=== PATIENT | female | born 1995 | race Caucasian/White ===

== ENCOUNTER 2016-07-27 12:15 | Inpatient (IN) | payer MEDICAID ==
[2016-07-27] MEDS: DUONEB 0.5 MG/3 MG NEB SCH ×3 (14:56→20:45)
[2016-07-27 15:46] LABS: ABG BASE EXCESS 3.5 mmol/L (-2.0-2.0); ABG HCO3 26.5 mmol/L (22-26)
[2016-07-27 15:51] LABS: BASOPHILS # (AUTO) 0.1 X10^3/uL (0.0-0.1); BASOPHILS % (AUTO) 0.7 % (0.2-1.0); EOSINOPHILS # (AUTO) 0.1 x10^3/uL (0.0-0.2); EOSINOPHILS % (AUTO) 0.8 % (0.9-2.9); HEMATOCRIT 40.8 % (36.0-47.0); HEMOGLOBIN 13.6 g/dL (12.0-16.0); LYMPHOCYTES # (AUTO) 2.9 X10^3/uL (1.3-2.9); MEAN CORPUSCULAR HEMOGLOBIN 28.5 pg (27.0-34.0); MEAN CORPUSCULAR HGB CONC 33.3 g/dL (33.0-35.0); MEAN CORPUSCULAR VOLUME 85.7 fL (80.0-100.0); MEAN PLATELET VOLUME 8.6 fL (7.4-11.0); MONOCYTES # (AUTO) 1.5 x10^3/uL (0.3-0.8); NEUTROPHILS # (AUTO) 10.8 x10^3/uL (2.2-4.8); NEUTROPHILS % (AUTO) 69.5 % (42.0-75.0); PLATELET COUNT 287 X10^3/uL (150.0-450.0); RED BLOOD COUNT 4.77 X10^6/uL (3.5-5.4); RED CELL DISTRIBUTION WIDTH 12.8 % (11.6-16.5); WHITE BLOOD COUNT 15.5 X10^3/uL (3.6-10.0)
[2016-07-27 16:00] LABS: BLOOD UREA NITROGEN 7 mg/dL (7-18); CALCIUM 8.2 mg/dL (8.5-10.1); CARBON DIOXIDE 24.8 mmol/L (21-32); CHLORIDE 107 mmol/L (98-107); CREATININE 0.64 mg/dL (0.55-1.02); GLUCOSE 75 mg/dL (65-99); SODIUM 142 mmol/L (136-145); eGFR BLACK RACES > 60 (>60); eGFR NON BLACK RACES > 60 (>60)
[2016-07-27 16:01] VITALS: BMI 17.7
[2016-07-27] MEDS: LEVAQUIN PREMIX IV 500 MG 500 MG/100 ML BAG IV SCH (16:03)
[2016-07-27] MEDS: NS 500 ML IV 500 ML IV SCH (16:03)
--- NOTE | 2016-07-27 16:28 | RAD ---
HISTORY: Cystic fibrosis Study: PA and lateral views of the chest. Comparison: None. Findings: The cardiomediastinal silhouette is normal. No focal consolidations, pleural effusions or pneumothor ax. There appears to be some early bronchiectasis involving the upper lobes bilaterally. IMPRESSION: 1. Bronchiectasis of the upper lobes consistent with patient's diagnosis of cystic fibrosis. Reported By:
[2016-07-27 20:20] LABS: BILIRUBIN,URINE NEGATIVE (NEGATIVE); BLOOD/HEMOGLOBIN,URINE 4+ (NEGATIVE); GLUCOSE, URINE NEGATIVE (NEGATIVE); KETONES,URINE NEGATIVE (NEGATIVE); LEUKOCYTE ESTERASE ,URINE 1+ (NEGATIVE); NITRITES,URINE POSITIVE (NEGATIVE); PROTEIN,URINE NEGATIVE (NEGATIVE); UROBILINOGEN,URINE 1+ (NORMAL)
[2016-07-27 20:33] LABS: COLOR,URINE YELLOW (YELLOW)
[2016-07-27 20:34] LABS: APPEARANCE,URINE CLOUDY (CLEAR); BACTERIA,URINE 3+ /HPF (NEGATIVE); RBC,URINE 0-3 /HPF (NEGATIVE); SQUAMOUS EPITHELIAL CELL,UR RARE /HPF (NEGATIVE)
[2016-07-27] MEDS ORDERED: [UNRECOGNIZED DRUG - OTHER] PO SCH (21:30)
[2016-07-27] MEDS ORDERED: PANCRELIPASE PO SCH (21:30)
[2016-07-28] MEDS: DUONEB 0.5 MG/3 MG NEB SCH ×6 (00:35→21:46)
[2016-07-28 05:40] LABS: BASOPHILS # (AUTO) 0.1 X10^3/uL (0.0-0.1); BASOPHILS % (AUTO) 0.9 % (0.2-1.0); EOSINOPHILS # (AUTO) 0.2 x10^3/uL (0.0-0.2); EOSINOPHILS % (AUTO) 1.2 % (0.9-2.9); HEMATOCRIT 37.8 % (36.0-47.0); HEMOGLOBIN 12.5 g/dL (12.0-16.0); LYMPHOCYTES # (AUTO) 3.7 X10^3/uL (1.3-2.9); MEAN CORPUSCULAR HEMOGLOBIN 28.4 pg (27.0-34.0); MEAN PLATELET VOLUME 9.1 fL (7.4-11.0); MONOCYTES # (AUTO) 1.5 x10^3/uL (0.3-0.8); MONOCYTES % (AUTO) 10.9 % (0.0-13.0); NEUTROPHILS # (AUTO) 8.6 x10^3/uL (2.2-4.8); PLATELET COUNT 260 X10^3/uL (150.0-450.0); RED CELL DISTRIBUTION WIDTH 12.8 % (11.6-16.5); WHITE BLOOD COUNT 14.1 X10^3/uL (3.6-10.0)
[2016-07-28 05:57] LABS: ALANINE AMINOTRANSFERASE 57 Units/L (12-78); ALBUMIN 2.3 g/dL (3.4-5.0); ALKALINE PHOSPHATASE 79 Units/L (46-116); ASPARTATE AMINO TRANSFERASE 41 Units/L (15-37); BLOOD UREA NITROGEN 8 mg/dL (7-18); CALCIUM 8.2 mg/dL (8.5-10.1); CARBON DIOXIDE 27.1 mmol/L (21-32); CHLORIDE 107 mmol/L (98-107); COR CA(FOR HYPOALB) 9.6 mg/dL (8.5-10.1); GLUCOSE 108 mg/dL (65-99); SODIUM 141 mmol/L (136-145); TOTAL PROTEIN 6.2 g/dL (6.4-8.2); eGFR BLACK RACES > 60 (>60); eGFR NON BLACK RACES > 60 (>60)
[2016-07-28] MEDS: [UNRECOGNIZED DRUG - OTHER] PO SCH ×4 (08:31→21:05)
[2016-07-28] MEDS: PANCRELIPASE PO SCH ×4 (08:31→21:05)
[2016-07-28] MEDS: SOLU-Medrol 40 MG VIAL IVP SCH ×2 (09:27→18:20)
[2016-07-28] MEDS: LEVAQUIN PREMIX IV 500 MG 500 MG/100 ML BAG IV SCH (09:27)
[2016-07-28] MEDS: MEPHYTON PO SCH ×2 (09:33→21:05)
--- NOTE | 2016-07-28 11:30 | DR.H&P ---
H&P - History & Physical for Day of: H&P Date: 07/27/16 - Chief Complaint Chief Complaint: Cough and leg swelling - Allergies Allergies/Adverse Reactions: Allergies Allergy/AdvReac Type Severity Reaction Status Date / Time Loracarbef [From Lorabid] Allergy Mild RASH Verified 07/27/16 15:25 - History of Present Illness History of Present Illness: This is a 20 year old WF, patient with h/o CF who presents to the Clinic with complaint of BLE edema and cough x 3 months. 2+ pitted edema noted to BLE. Rates pain 6 on a pain scale 0-10. SOB on exertion. States her home health aide caregiver at [facility] is evaluating her for MAC therapy. Does wear vest daily. - Past Medical History Additional Medical History: Cysatic Fibrosis, Factor 5 - Past Surgical History Surgical History: Appendectomy - Family History Family Medical History: Diabetes Mellitus, Heart Failure, Hypertension - Social History Does patient currently use any type of tobacco product: No Have you used tobacco products in the last 12 months: No Type of Tobacco Use: None Does any household member use tobacco: No Alcohol Use: None Drug Use: None - Medications Home Medications: Pancrelipase (Lipase-Protease- [Creon 41642 Unit] 4 cap PO .EACH SNACK 07/27/16 [History Confirmed 07/27/16] Pancrelipase (Lipase-Protease- [Creon 36088 Unit] 5 cap PO ACHS 07/27/16 [ History Confirmed 07/27/16] Phytonadione (Vit K) [MEPHYTON TAB 5 MG *] 1 tab PO BID 07/27/16 [History Confirmed 07/27/16] - Review of Systems Constitutional: No Symptoms Reported Eyes: No Symptoms Reported ENT: No Symptoms Reported Respiratory: Cough, SOB with Excertion Cardiovascular: Edema Gastrointestinal: No Symptoms Reported Genitourinary: No Symptoms Reported Musculoskeletal: Leg Pain Skin: No Symptoms Reported Neurological: No Symptoms Reported - Physical Exam Vital Signs: Temperature 98.2 F Pulse Rate [Left Radial] 84 Pulse Rate 110 Respiratory Rate 16 Blood Pressure [Right Arm] 102/58 O2 Sat by Pulse Oximetry 95 Oriented: Normal Eyes: Normal Ear: Normal Nose: Normal Throat: Normal Respiratory: Diminished Throughout Cardiovascular: Normal : Normal Auscultation: Bowel Sounds: Normal Palpation: Normal Tenderness: Normal Skin: Normal Musculoskeletal: Leg, Swelling Psychiatric: Normal Mood Description: Calm Affect: Normal Speech Pattern: Clear - Assessment/Plan (1) Cystic fibrosis Status: Acute Plan: CXR, LABS, NEBS (2) Cough Status: Acute Plan: CXR (3) Peripheral edema Status: Acute Plan: LABS, CXR, ECHO
[2016-07-28] MEDS: LASIX IVP SCH (14:57)
[2016-07-28] MEDS: NS 500 ML IV 500 ML IV SCH (14:57)
[2016-07-28] MEDS: DIFLUCAN PO SCH (14:57)
--- NOTE | 2016-07-28 18:10 | PCM.PROG ---
Progress Note - Progress Note for Day of Date: 07/28/16 - Subjective Subjective: 21 FEMALE ADMITTED ONE DAY AGO WITH FAILED OUT PT TREATMENT OF ACUTE ON CHRONIC BRONCHITIS WITH HX OF CYSTIC FIBROSIS. PLAN TO CONTINUE IV ATBX AND RESP THERAPY. - Past Medical Family Social History Past Med/Fam/Surg Hx: No changes since H&P Allergies: Allergies Loracarbef [From Lorabid] Allergy (Mild, Verified 07/27/16 15:25) RASH - Review of Systems ROS: No change since H&P - Vital Signs and I&O's Vital Signs: Temperature 98.3 F Pulse Rate [Left Radial] 79 Pulse Rate 110 Respiratory Rate 16 Blood Pressure [Right Arm] 90/73 O2 Sat by Pulse Oximetry 96 Intake and Output: Intake & Output 07/26/16 07/27/16 07/28/16 07/29/16 11:59 11:59 11:59 11:59 Intake Total 420 860 Output Total 200 900 Balance 220 -40 - Physical Exam Oriented: Normal Eyes: Normal Ear: Normal Nose: Normal Throat: Normal Respiratory: Rhonchi Cardiovascular: Normal : Normal Auscultation: Bowel Sounds: Normal Tenderness: Normal Skin: Normal Musculoskeletal: Leg, Swelling Psychiatric: Normal Mood Description: Calm Affect: Normal Speech Pattern: Clear - Laboratory and Diagnostics Result Diagrams: 07/28/16 05:00 07/28/16 05:00 Labs: 07/27/16 16:04 Sputum - Expectorated Sputum Sputum Culture - Preliminary 07/27/16 16:04 Sputum - Expectorated Sputum - Final 07/27/16 20:01 Urine,Clean Catch Urine Culture - Preliminary Laboratory WBC 14.1 X10^3/uL (3.6-10.0) H 07/28/16 05:00 RBC 4.40 X10^6/uL (3.5-5.4) 07/28/16 05:00 Hgb 12.5 g/dL (12.0-16.0) 07/28/16 05:00 Hct 37.8 % (36.0-47.0) 07/28/16 05:00 MCV 86.0 fL (80.0-100.0) 07/28/16 05:00 MCH 28.4 pg (27.0-34.0) 07/28/16 05:00 MCHC 33.0 g/dL (33.0-35.0) 07/28/16 05:00 RDW 12.8 % (11.6-16.5) 07/28/16 05:00 Plt Count 260 X10^3/uL (150.0-450.0) 07/28/16 05:00 MPV 9.1 fL (7.4-11.0) 07/28/16 05:00 Neut % 61.0 % (42.0-75.0) 07/28/16 05:00 Lymph % 26.0 % (21.0-51.0) 07/28/16 05:00 [place] % 10.9 % (0.0-13.0) 07/28/16 05:00 Eos % 1.2 % (0.9-2.9) 07/28/16 05:00 Baso % 0.9 % (0.2-1.0) 07/28/16 05:00 Neut # 8.6 x10^3/uL (2.2-4.8) H 07/28/16 05:00 Lymph # 3.7 X10^3/uL (1.3-2.9) H 07/28/16 05:00 [place] # 1.5 x10^3/uL (0.3-0.8) H 07/28/16 05:00 Eos # 0.2 x10^3/uL (0.0-0.2) 07/28/16 05:00 Baso # 0.1 X10^3/uL (0.0-0.1) 07/28/16 05:00 Absolute Nucleated RBC 0.0 /100WBC 07/28/16 05:00 Sample Site Right brachial 07/27/16 15:40 ABG pH 7.500 (7.35-7.45) H 07/27/16 15:40 ABG pCO2 34.0 mmHg (35.0-45.0) L 07/27/16 15:40 ABG pO2 87.0 mmHg (80.0-100.0) 07/27/16 15:40 ABG HCO3 26.5 mmol/L (22-26) H 07/27/16 15:40 ABG O2 Saturation 97.0 % (90-100) 07/27/16 15:40 ABG Base Excess 3.5 mmol/L (-2.0-2.0) H 07/27/16 15:40 Momo Test Na 07/27/16 15:40 A-a Gradient 20.0 mmHg 07/27/16 15:40 FiO2 21.000 07/27/16 15:40 Blood Gas Comments Aleshia well aw 07/27/16 15:40 Sodium 141 mmol/L (136-145) 07/28/16 05:00 Corrected Sodium TNP 07/28/16 05:00 Potassium 3.9 mmol/L (3.5-5.1) 07/28/16 05:00 Chloride 107 mmol/L (98-107) 07/28/16 05:00 Carbon Dioxide 27.1 mmol/L (21-32) 07/28/16 05:00 BUN 8 mg/dL (7-18) 07/28/16 05:00 Creatinine 0.70 mg/dL (0.55-1.02) 07/28/16 05:00 Est GFR (MDRD) Af Amer > 60 (>60) 07/28/16 05:00 Est GFR (MDRD) Non-Af > 60 (>60) 07/28/16 05:00 Glucose 108 mg/dL (65-99) H 07/28/16 05:00 Calcium 8.2 mg/dL (8.5-10.1) L 07/28/16 05:00 Corrected Calcium 9.6 mg/dL (8.5-10.1) 07/28/16 05:00 Total Bilirubin 0.70 mg/dL (0.2-1.0) 07/28/16 05:00 AST 41 Units/L (15-37) H 07/28/16 05:00 ALT 57 Units/L (12-78) 07/28/16 05:00 Alkaline Phosphatase 79 Units/L (46-116) 07/28/16 05:00 Total Protein 6.2 g/dL (6.4-8.2) L 07/28/16 05:00 Albumin 2.3 g/dL (3.4-5.0) L 07/28/16 05:00 Globulin 3.9 g/dL (2.5-4.5) 07/28/16 05:00 Albumin/Globulin Ratio 0.6 Ratio (1.1-2.1) L 07/28/16 05:00 Specimen Type Clean catch urine 07/27/16 20:09 Urine Color Yellow (YELLOW) 07/27/16 20:09 Urine Appearance Cloudy (CLEAR) 07/27/16 20:09 Urine pH 7.0 (5.0 - 8.0) 07/27/16 20:09 Ur Specific [place] 1.015 (1.000-1.030) 07/27/16 20:09 Urine Protein Negative (NEGATIVE) 07/27/16 20:09 Urine Glucose (UA) Negative (NEGATIVE) 07/27/16 20:09 Urine Ketones Negative (NEGATIVE) 07/27/16 20:09 Urine Occult Blood 4+ (NEGATIVE) 07/27/16 20:09 Urine Nitrite Positive (NEGATIVE) 07/27/16 20: Urine Bilirubin Negative (NEGATIVE) 07/27/16 20:09 Urine Urobilinogen 1+ (NORMAL) 07/27/16 20:09 Ur Leukocyte Esterase 1+ (NEGATIVE) 07/27/16 20:09 Urine RBC 0-3 /HPF (NEGATIVE) 07/27/16 20:09 Urine WBC 6-8 /HPF (NEGATIVE) 07/27/16 20:09 Ur Squamous Epith Cells Rare /HPF (NEGATIVE) 07/27/16 20:09 Urine Bacteria 3+ /HPF (NEGATIVE) 07/27/16 20:09 Ur Culture Indicated? Yes/culture set up 07/27/16 20:09 - Plan (1) Chronic bronchitis with acute exacerbation Status: Acute Plan: CONTINUE RESP THERAPY, IV ATBX. O2 SUPPLEMENT, REST (2) Cystic fibrosis Status: Acute Plan: CXR, LABS, NEBS (3) Peripheral edema Status: Acute Plan: LABS, CXR, ECHO PRELIMINARY REVIEWED WITH PT
[2016-07-28] MEDS: MUCOMYST (RESPIRATORY USE ONLY) NEB SCH (21:49)
[2016-07-29] MEDS: SOLU-Medrol 40 MG VIAL IVP SCH ×3 (01:10→17:29)
[2016-07-29] MEDS: DUONEB 0.5 MG/3 MG NEB SCH ×5 (01:35→16:49)
[2016-07-29 06:31] LABS: BASOPHILS % (AUTO) 0.3 % (0.2-1.0); EOSINOPHILS % (AUTO) 0.1 % (0.9-2.9); HEMATOCRIT 40.4 % (36.0-47.0); HEMOGLOBIN 13.5 g/dL (12.0-16.0); LYMPHOCYTES # (AUTO) 1.1 X10^3/uL (1.3-2.9); MEAN CORPUSCULAR HEMOGLOBIN 28.6 pg (27.0-34.0); MEAN CORPUSCULAR HGB CONC 33.4 g/dL (33.0-35.0); MEAN CORPUSCULAR VOLUME 85.5 fL (80.0-100.0); MEAN PLATELET VOLUME 9.3 fL (7.4-11.0); MONOCYTES # (AUTO) 0.2 x10^3/uL (0.3-0.8); MONOCYTES % (AUTO) 1.5 % (0.0-13.0); NEUTROPHILS # (AUTO) 12.6 x10^3/uL (2.2-4.8); NEUTROPHILS % (AUTO) 90.1 % (42.0-75.0); PLATELET COUNT 283 X10^3/uL (150.0-450.0); RED BLOOD COUNT 4.72 X10^6/uL (3.5-5.4)
[2016-07-29 06:36] LABS: ALANINE AMINOTRANSFERASE 67 Units/L (12-78); ALBUMIN 2.7 g/dL (3.4-5.0); ALKALINE PHOSPHATASE 86 Units/L (46-116); ASPARTATE AMINO TRANSFERASE 37 Units/L (15-37); BLOOD UREA NITROGEN 8 mg/dL (7-18); CALCIUM 8.7 mg/dL (8.5-10.1); CARBON DIOXIDE 25.4 mmol/L (21-32); CHLORIDE 105 mmol/L (98-107); COR CA(FOR HYPOALB) 9.7 mg/dL (8.5-10.1); COR NA(FOR HYPERGLY) 142 mmol/L (136-145); CREATININE 0.71 mg/dL (0.55-1.02); GLUCOSE 176 mg/dL (65-99); SODIUM 140 mmol/L (136-145); TOTAL PROTEIN 7.3 g/dL (6.4-8.2); eGFR BLACK RACES > 60 (>60); eGFR NON BLACK RACES > 60 (>60)
[2016-07-29 06:56] LABS: BAND NEUTROPHILS % 3 % (0-10); PLATELET MORPHOLOGY COMMENT NORMAL (NORMAL)
--- NOTE | 2016-07-29 08:50 | RAD ---
Chest AP portable. Indication: Dyspnea. Cystic fibrosis. Comparison: July 27, 2016. Findings: There is no pneumothorax. No dense consolidation seen. Heart size is normal. Vague right mid lung zone opacities concerning for infiltrate. Impression: 1. Right mid lung zone opacity concerning for pneumonia. 2. Changes of CF. Reported By:
[2016-07-29] MEDS: MUCOMYST (RESPIRATORY USE ONLY) NEB SCH (09:20)
[2016-07-29] MEDS: LASIX IVP SCH (10:08)
[2016-07-29] MEDS: LEVAQUIN PREMIX IV 500 MG 500 MG/100 ML BAG IV SCH (10:09)
[2016-07-29] MEDS: DIFLUCAN PO SCH (10:23)
[2016-07-29] MEDS: MEPHYTON PO SCH (10:24)
[2016-07-29] MEDS: PANCRELIPASE PO SCH ×2 (11:47→16:24)
[2016-07-29] MEDS: [UNRECOGNIZED DRUG - OTHER] PO SCH ×2 (11:47→16:24)
[2016-07-29 16:22] VITALS: BP 104/65
[2016-07-29] MEDS: NS 500 ML IV 500 ML IV SCH (17:23)
--- NOTE | 2016-07-29 17:32 | PCM.PROG ---
Progress Note - Progress Note for Day of Date: 07/29/16 - Subjective Subjective: 21 FEMALE ADMITTED ON WEDNESDAY WITH FAILED OUT PT TREATMENT OF ACUTE ON CHRONIC BRONCHITIS WITH HX OF CYSTIC FIBROSIS. PLAN TO CONTINUE IV ATBX AND RESP THERAPY. - Past Medical Family Social History Past Med/Fam/Surg Hx: No changes since H&P Allergies: Allergies Loracarbef [From Lorabid] Allergy (Mild, Verified 07/27/16 15:25) RASH - Review of Systems ROS: No change since H&P - Vital Signs and I&O's Vital Signs: Temperature 98.6 F Pulse Rate [Left Radial] 101 Pulse Rate 100 Respiratory Rate 18 Blood Pressure [Right Arm] 104/65 O2 Sat by Pulse Oximetry 97 Intake and Output: Intake & Output 07/27/16 07/28/16 07/29/16 07/30/16 11:59 11:59 11:59 11:59 Intake Total 420 1630 1000 Output Total 200 900 Balance 551 011 5752 - Physical Exam Oriented: Normal Eyes: Normal Ear: Normal Nose: Normal Throat: Normal Respiratory: Rhonchi Cardiovascular: Normal : Normal Auscultation: Bowel Sounds: Normal Tenderness: Normal Skin: Normal Musculoskeletal: Leg, Swelling Psychiatric: Normal Mood Description: Calm Affect: Normal Speech Pattern: Clear, Appropriate - Laboratory and Diagnostics Result Diagrams: 07/29/16 05:44 07/29/16 05:44 Labs: 07/27/16 16:04 Sputum - Expectorated Sputum Sputum Culture - Preliminary 07/27/16 16:04 Sputum - Expectorated Sputum - Final 07/27/16 20:01 Urine,Clean Catch Urine Culture - Final Escherichia Coli 07/27/16 15:15 Blood Blood Culture - Preliminary Laboratory WBC 14.0 X10^3/uL (3.6-10.0) H 07/29/16 05:44 RBC 4.72 X10^6/uL (3.5-5.4) 07/29/16 05:44 Hgb 13.5 g/dL (12.0-16.0) 07/29/16 05:44 Hct 40.4 % (36.0-47.0) 07/29/16 05:44 MCV 85.5 fL (80.0-100.0) 07/29/16 05:44 MCH 28.6 pg (27.0-34.0) 07/29/16 05:44 MCHC 33.4 g/dL (33.0-35.0) 07/29/16 05:44 RDW 13.0 % (11.6-16.5) 07/29/16 05:44 Plt Count 283 X10^3/uL (150.0-450.0) 07/29/16 05:44 Plt Count Comment Adequate (ADEQUATE) 07/29/16 05:44 MPV 9.3 fL (7.4-11.0) 07/29/16 05:44 Neut % 90.1 % (42.0-75.0) H 07/29/16 05:44 Lymph % 8.0 % (21.0-51.0) L 07/29/16 05:44 [place] % 1.5 % (0.0-13.0) 07/29/16 05:44 Eos % 0.1 % (0.9-2.9) L 07/29/16 05:44 Baso % 0.3 % (0.2-1.0) 07/29/16 05:44 Neut # 12.6 x10^3/uL (2.2-4.8) H 07/29/16 05:44 Lymph # 1.1 X10^3/uL (1.3-2.9) L 07/29/16 05:44 [place] # 0.2 x10^3/uL (0.3-0.8) L 07/29/16 05:44 Eos # 0.0 x10^3/uL (0.0-0.2) 07/29/16 05:44 Baso # 0.0 X10^3/uL (0.0-0.1) 07/29/16 05:44 Absolute Nucleated RBC 0.0 /100WBC 07/29/16 05:44 Total Counted 100 07/29/16 05:44 Neutrophils % (Manual) 88 % (39-76) H 07/29/16 05:44 Band Neutrophils % 3 % (0-10) 07/29/16 05:44 Lymphocytes % (Manual) 8 % (13-43) L 07/29/16 05:44 Monocytes % (Manual) 1 % (4-9) L 07/29/16 05:44 Plt Morphology Comment Normal (NORMAL) 07/29/16 05:44 RBC Morphology Normal (NORMAL) 07/29/16 05:44 Sample Site Right brachial 07/27/16 15:40 ABG pH 7.500 (7.35-7.45) H 07/27/16 15:40 ABG pCO2 34.0 mmHg (35.0-45.0) L 07/27/16 15:40 ABG pO2 87.0 mmHg (80.0-100.0) 07/27/16 15:40 ABG HCO3 26.5 mmol/L (22-26) H 07/27/16 15:40 ABG O2 Saturation 97.0 % (90-100) 07/27/16 15:40 ABG Base Excess 3.5 mmol/L (-2.0-2.0) H 07/27/16 15:40 Momo Test Na 07/27/16 15:40 A-a Gradient 20.0 mmHg 07/27/16 15:40 FiO2 21.000 07/27/16 15:40 Blood Gas Comments Aleshia well aw 07/27/16 15:40 Sodium 140 mmol/L (136-145) 07/29/16 05:44 Corrected Sodium 142 mmol/L (136-145) 07/29/16 05:44 Potassium 4.3 mmol/L (3.5-5.1) 07/29/16 05:44 Chloride 105 mmol/L (98-107) 07/29/16 05:44 Carbon Dioxide 25.4 mmol/L (21-32) 07/29/16 05:44 BUN 8 mg/dL (7-18) 07/29/16 05:44 Creatinine 0.71 mg/dL (0.55-1.02) 07/29/16 05:44 Est GFR (MDRD) Af Amer > 60 (>60) 07/29/16 05:44 Est GFR (MDRD) Non-Af > 60 (>60) 07/29/16 05:44 Glucose 176 mg/dL (65-99) H 07/29/16 05:44 Calcium 8.7 mg/dL (8.5-10.1) 07/29/16 05:44 Corrected Calcium 9.7 mg/dL (8.5-10.1) 07/29/16 05:44 Total Bilirubin 0.60 mg/dL (0.2-1.0) 07/29/16 05:44 AST 37 Units/L (15-37) 07/29/16 05:44 ALT 67 Units/L (12-78) 07/29/16 05:44 Alkaline Phosphatase 86 Units/L (46-116) 07/29/16 05:44 Total Protein 7.3 g/dL (6.4-8.2) 07/29/16 05:44 Albumin 2.7 g/dL (3.4-5.0) L 07/29/16 05:44 Globulin 4.6 g/dL (2.5-4.5) H 07/29/16 05:44 Albumin/Globulin Ratio 0.6 Ratio (1.1-2.1) L 07/29/16 05:44 Specimen Type Clean catch urine 07/27/16 20:09 Urine Color Yellow (YELLOW) 07/27/16 20:09 Urine Appearance Cloudy (CLEAR) 07/27/16 20:09 Urine pH 7.0 (5.0 - 8.0) 07/27/16 20:09 Ur Specific Tea 1.015 (1.000-1.030) 07/27/16 20:09 Urine Protein Negative (NEGATIVE) 07/27/16 20:09 Urine Glucose (UA) Negative (NEGATIVE) 07/27/16 20:09 Urine Ketones Negative (NEGATIVE) 07/27/16 20:09 Urine Occult Blood 4+ (NEGATIVE) 07/27/16 20:09 Urine Nitrite Positive (NEGATIVE) 07/27/16 20:09 Urine Bilirubin Negative (NEGATIVE) 07/27/16 20:09 Urine Urobilinogen 1+ (NORMAL) 07/27/16 20:09 Ur Leukocyte Esterase 1+ (NEGATIVE) 07/27/16 20:09 Urine RBC 0-3 /HPF (NEGATIVE) 07/27/16 20:09 Urine WBC 6-8 /HPF (NEGATIVE) 07/27/16 20:09 Ur Squamous Epith Cells Rare /HPF (NEGATIVE) 07/27/16 20:09 Urine Bacteria 3+ /HPF (NEGATIVE) 07/27/16 20:09 Ur Culture Indicated? Yes/culture set up 07/27/16 20:09 - Plan (1) Chronic bronchitis with acute exacerbation Status: Acute Plan: CONTINUE RESP THERAPY, IV ATBX. O2 SUPPLEMENT, REST (2) Cystic fibrosis Status: Acute Plan: CXR, LABS, NEBS (3) Peripheral edema Status: Acute Plan: LABS, CXR, ECHO PRELIMINARY REVIEWED WITH PT
[2016-07-29] MEDS ORDERED: ROCEPHIN VIAL 1 GM 1 GM in NS 50 ML IV + SPIKE MINIBAG* 50 ML IV SCH (19:00)
--- NOTE | 2016-07-31 16:38 | PCM.DCPLAN ---
Discharge Summary - Admission Date Date of Admission: 07/27/16 - Discharge Date Discharge Date: 07/29/16 - Admission Diagnoses (1) Chronic bronchitis with acute exacerbation Status: Acute (2) Cystic fibrosis Status: Acute (3) Peripheral edema Status: Acute - Discharge Diagnoses Discharge Diagnosis: SAME ADMISSION - Discharge Medications Discharge Medications: Pancrelipase (Lipase-Protease- [Creon 03140 Unit] 4 cap PO .EACH SNACK 07/27/16 [History] Pancrelipase (Lipase-Protease- [Creon 30057 Unit] 5 cap PO ACHS 07/27/16 [ History] Phytonadione (Vit K) [MEPHYTON TAB 5 MG *] 1 tab PO BID 07/27/16 [History] - Hospital Course Vital Signs: Temperature 98.6 F Pulse Rate [Left Radial] 101 Pulse Rate 100 Respiratory Rate 18 Blood Pressure [Right Arm] 104/65 O2 Sat by Pulse Oximetry 97 Latest Lab Results: Laboratory Last Values WBC 14.0 X10^3/uL (3.6-10.0) H 07/29/16 05:44 RBC 4.72 X10^6/uL (3.5-5.4) 07/29/16 05:44 Hgb 13.5 g/dL (12.0-16.0) 07/29/16 05:44 Hct 40.4 % (36.0-47.0) 07/29/16 05:44 MCV 85.5 fL (80.0-100.0) 07/29/16 05:44 MCH 28.6 pg (27.0-34.0) 07/29/16 05:44 MCHC 33.4 g/dL (33.0-35.0) 07/29/16 05:44 RDW 13.0 % (11.6-16.5) 07/29/16 05:44 Plt Count 283 X10^3/uL (150.0-450.0) 07/29/16 05:44 Plt Count Comment Adequate (ADEQUATE) 07/29/16 05:44 MPV 9.3 fL (7.4-11.0) 07/29/16 05:44 Neut % 90.1 % (42.0-75.0) H 07/29/16 05:44 Lymph % 8.0 % (21.0-51.0) L 07/29/16 05:44 [place] % 1.5 % (0.0-13.0) 07/29/16 05:44 Eos % 0.1 % (0.9-2.9) L 07/29/16 05:44 Baso % 0.3 % (0.2-1.0) 07/29/16 05:44 Neut # 12.6 x10^3/uL (2.2-4.8) H 07/29/16 05:44 Lymph # 1.1 X10^3/uL (1.3-2.9) L 07/29/16 05:44 [place] # 0.2 x10^3/uL (0.3-0.8) L 07/29/16 05:44 Eos # 0.0 x10^3/uL (0.0-0.2) 07/29/16 05:44 Baso # 0.0 X10^3/uL (0.0-0.1) 07/29/16 05:44 Absolute Nucleated RBC 0.0 /100WBC 07/29/16 05:44 Total Counted 100 07/29/16 05:44 Neutrophils % (Manual) 88 % (39-76) H 07/29/16 05:44 Band Neutrophils % 3 % (0-10) 07/29/16 05:44 Lymphocytes % (Manual) 8 % (13-43) L 07/29/16 05:44 Monocytes % (Manual) 1 % (4-9) L 07/29/16 05:44 Plt Morphology Comment Normal (NORMAL) 07/29/16 05:44 RBC Morphology Normal (NORMAL) 07/29/16 05:44 Sample Site Right brachial 07/27/16 15:40 ABG pH 7.500 (7.35-7.45) H 07/27/16 15:40 ABG pCO2 34.0 mmHg (35.0-45.0) L 07/27/16 15:40 ABG pO2 87.0 mmHg (80.0-100.0) 07/27/16 15:40 ABG HCO3 26.5 mmol/L (22-26) H 07/27/16 15:40 ABG O2 Saturation 97.0 % (90-100) 07/27/16 15:40 ABG Base Excess 3.5 mmol/L (-2.0-2.0) H 07/27/16 15:40 Momo Test Na 07/27/16 15:40 A-a Gradient 20.0 mmHg 07/27/16 15:40 FiO2 21.000 07/27/16 15:40 Blood Gas Comments Aleshia well aw 07/27/16 15:40 Sodium 140 mmol/L (136-145) 07/29/16 05:44 Corrected Sodium 142 mmol/L (136-145) 07/29/16 05:44 Potassium 4.3 mmol/L (3.5-5.1) 07/29/16 05:44 Chloride 105 mmol/L (98-107) 07/29/16 05:44 Carbon Dioxide 25.4 mmol/L (21-32) 07/29/16 05:44 BUN 8 mg/dL (7-18) 07/29/16 05:44 Creatinine 0.71 mg/dL (0.55-1.02) 07/29/16 05:44 Est GFR (MDRD) Af Amer > 60 (>60) 07/29/16 05:44 Est GFR (MDRD) Non-Af > 60 (>60) 07/29/16 05:44 Glucose 176 mg/dL (65-99) H 07/29/16 05:44 Calcium 8.7 mg/dL (8.5-10.1) 07/29/16 05:44 Corrected Calcium 9.7 mg/dL (8.5-10.1) 07/29/16 05:44 Total Bilirubin 0.60 mg/dL (0.2-1.0) 07/29/16 05:44 AST 37 Units/L (15-37) 07/29/16 05:44 ALT 67 Units/L (12-78) 07/29/16 05:44 Alkaline Phosphatase 86 Units/L (46-116) 07/29/16 05:44 Total Protein 7.3 g/dL (6.4-8.2) 07/29/16 05:44 Albumin 2.7 g/dL (3.4-5.0) L 07/29/16 05:44 Globulin 4.6 g/dL (2.5-4.5) H 07/29/16 05:44 Albumin/Globulin Ratio 0.6 Ratio (1.1-2.1) L 07/29/16 05:44 Specimen Type Clean catch urine 07/27/16 20:09 Urine Color Yellow (YELLOW) 07/27/16 20:09 Urine Appearance Cloudy (CLEAR) 07/27/16 20: Urine pH 7.0 (5.0 - 8.0) 07/27/16 20:09 Ur Specific [place] 1.015 (1.000-1.030) 07/27/16 20:09 Urine Protein Negative (NEGATIVE) 07/27/16 20:09 Urine Glucose (UA) Negative (NEGATIVE) 07/27/16 20:09 Urine Ketones Negative (NEGATIVE) 07/27/16 20:09 Urine Occult Blood 4+ (NEGATIVE) 07/27/16 20:09 Urine Nitrite Positive (NEGATIVE) 07/27/16 20: Urine Bilirubin Negative (NEGATIVE) 07/27/16 20: Urine Urobilinogen 1+ (NORMAL) 07/27/16 20:09 Ur Leukocyte Esterase 1+ (NEGATIVE) 07/27/16 20:09 Urine RBC 0-3 /HPF (NEGATIVE) 07/27/16 20:09 Urine WBC 6-8 /HPF (NEGATIVE) 07/27/16 20:09 Ur Squamous Epith Cells Rare /HPF (NEGATIVE) 07/27/16 20:09 Urine Bacteria 3+ /HPF (NEGATIVE) 07/27/16 20:09 Ur Culture Indicated? Yes/culture set up 07/27/16 20:09 Hospital Course: PATIENT IS A 21-YEAR-OLD WHITE FEMALE WHO WAS A DIRECT ADMIT FROM [facility] [place] OFF[facility] WITH COMPLAINTS OF CHRONIC COUGH CHEST CONGESTION AND INCREASED WHEEZING. pATIENT HAS A HISTORY OF CYSTIC FIBROSIS AND IS FOLLOWED BY PIGMENT PROCESSOR IN [place]. pATIENT HAS PREVIOUSLY FAILED OUTPATIENT THERAPY. oN ADMISSION PATIENT'S WHITE COUNT WAS SLIGHTLY ELEVATED CHEMISTRY WAS STABLE CHEST X-RAY REVEALED NO PNEUMONIA. pATIENT WAS ON o2 REPLACEMENT WELL PULMONARY BREATHING TREATMENTS PATIENT WAS PLACED ON RESPIRATORY BEST TO INCREASE PRODUCTIVE SPUTUM. a CULTURE WAS COLLECTED ON ADMISSION WHICH WAS POSITIVE FOR PSEUDOMONAS AERUGINOSA, WHICH PATIENT IS ALONE CARRIER OF. pATIENT ALSO HAD ua WITH CULTURE RESULTS OF eSCHERICHIA COLI. pATIENT HAD BEEN ON lEVAQUIN WHILE INPATIENT WELL STEROIDS AND iv HYDRATION. pATIENT'S CONDITION WAS MUCH IMPROVED ON DAY OF DISCHARGE. pATIENT WAS HOWEVER GIVEN rOCEPHIN 1 G PRIOR TO DISCHARGE DUE TO SENSITIVITY OF eSCHERICHIA COLI. pATIENT WAS DISCHARGED HOME ON mACROBID 100 TWICE A DAY FOR 10 DAYS WELL lEVAQUIN. pATIENT WAS ALSO GIVEN A SHORT SUPPLY OF mUCOMYST, MUCOLYTIC TIME SHE IMPROVED SPUTUM PRODUCTION. pATIENT WAS INSTRUCTED TO INCREASE THE BY MOUTH FLUIDS AND RESUME HOME MEDICATION AND REST. pATIENT INSTRUCTED TO FOLLOW UP PRIMARY CARE AND ON wednesday FOR FURTHER EVALUATION AND TO REVIEW CULTURES. pATIENT WAS INSTRUCTED TO FOLLOW-UP WITH HER PIGMENT PROCESSOR SCHEDULED IN HER AND HER PARENTS WERE INSTRUCTED TO RETURN TO THE EMERGENCY ROOM IF CONDITION CHANGE OR WORSEN UNEXPECTEDLY THEY VERBALIZED UNDERSTANDING. - Discharge Plan Disposition: HOME, SELF-CARE Condition: Stable - Follow ups/Referrals Follow ups/Referrals: KALYAN HARRISON [Nurse Practitioner] - - Instructions Instructions: Cough, Adult, [id number], Cystic Fibrosis, Peripheral Edema, Acute Bronchitis Forms: Patient Portal
== END 2016-07-29 19:49 | disposition home or self-care (01) | DRG 202 ==
LOC: UNDOADMOB 12:15 → MED/SURG 12:15 → OBSVTOIN 14:11 → MED/SURG 14:11 → ICU 15:00
PROVIDERS: ADMIT Internal Medicine; ATTEND Internal Medicine
DX: J20.8 Acute bronchitis due to other specified organisms (principal); J42 Unspecified chronic bronchitis; R60.0 Localized edema; R06.02 Shortness of breath; E84.9 Cystic fibrosis, unspecified; B96.29 Other Escherichia coli [E. coli] as the cause of diseases classified elsewhere; D72.828 Other elevated white blood cell count; N39.0 Urinary tract infection, site not specified; B96.5 Pseudomonas (aeruginosa) (mallei) (pseudomallei) as the cause of diseases classified elsewhere
CPT/HCPCS: 36415; 36600; 71010; 71020; 80048; 80053; 81001; 82803; 85025; 87040; 87070; 87077; 87086; 87088; 87186; 87205; 93005; 93010; 93306; 94640; 94667; 94668; A4216; A4222; J0696; J1940; J1956; J2920; J7608; J7620

== ENCOUNTER 2016-12-04 10:14 | Inpatient (IN) | payer MEDICAID ==
--- NOTE | 2016-12-04 11:00 | DR.H&P ---
H&P - History & Physical for Day of: H&P Date: 12/04/16 - Chief Complaint Chief Complaint: Cough and fatigue - Allergies Allergies/Adverse Reactions: Allergies Allergy/AdvReac Type Severity Reaction Status Date / Time MS Lucio [From Lorabid] Allergy Mild RASH Verified 07/27/16 15:25 - History of Present Illness History of Present Illness: The patient is a 21-year-old female who has cystic fibrosis. The patient has been having increased cough which is nonproductive. Is having fatigue with no energy. States that it does hurt to take a deep breath. Patient was treated in the outpatient setting with Rocephin and Decadron IM. Chest x-ray was clear. The patient was given Levaquin and prednisone which she has been taken. Patient is using nebulizer and her CPT vest at home. Patient has recently completed a 6 month treatment for MAC treatment. Symptoms have not improved. Patient is now coughing up blood. Patient will be admitted for inpatient treatment - Past Medical History Additional Medical History: Cysatic Fibrosis, Factor 5, Bilateral knee pain - Past Surgical History Surgical History: Appendectomy - Family History Family Medical History: Diabetes Mellitus, Heart Failure, Hypertension - Social History Does patient currently use any type of tobacco product: No Have you used tobacco products in the last 12 months: No Type of Tobacco Use: None Does any household member use tobacco: No Alcohol Use: None Drug Use: None - Review of Systems Constitutional: Weakness, Malaise Eyes: No Symptoms Reported ENT: No Symptoms Reported Respiratory: Cough, Shortness of Breath, Hemoptysis, SOB with Excertion Cardiovascular: No Symptoms Reported Gastrointestinal: No Symptoms Reported Genitourinary: No Symptoms Reported Musculoskeletal: No Symptoms Reported Skin: No Symptoms Reported Neurological: No Symptoms Reported - Physical Exam Vital Signs: Blood Pressure [Right Arm] 104/65 Blood Pressure 104/65 Oriented: Normal Eyes: Normal Ear: Normal Nose: Normal Throat: Normal Respiratory: RLL Diminished, LLL Diminished Cardiovascular: Normal : Normal Auscultation: Bowel Sounds: Normal Palpation: Normal Tenderness: Normal Skin: Normal Musculoskeletal: Leg, Tender Psychiatric: Normal Mood Description: Calm Affect: Normal Speech Pattern: Clear - Assessment/Plan (1) Chronic bronchitis with acute exacerbation Status: Acute Plan: labs, chest x-ray, IV Solu-Medrol, IV Rocephin and Levaquin, nebs, cpt vest (2) Cough Status: Acute Plan: labs, chest x-ray, IV Solu-Medrol, IV Rocephin and Levaquin, nebs, cpt vest (3) Cystic fibrosis Status: Acute Plan: labs, chest x-ray, IV Solu-Medrol, IV Rocephin and Levaquin, nebs, cpt vest
[2016-12-04] MEDS ORDERED: TUSSIONEX PENNKINETIC SUSP PO PRN ×2 (11:03→15:44)
[2016-12-04] MEDS: XOPENEX 1.25 MG/3 ML NEBULE NEB SCH ×3 (15:58→21:19)
[2016-12-04 16:16] LABS: BASOPHILS # (AUTO) 0.1 X10^3/uL (0.0-0.1); BASOPHILS % (AUTO) 0.8 % (0.2-1.0); EOSINOPHILS # (AUTO) 0.1 x10^3/uL (0.0-0.2); EOSINOPHILS % (AUTO) 0.5 % (0.9-2.9); HEMATOCRIT 39.2 % (36.0-47.0); HEMOGLOBIN 13.4 g/dL (12.0-16.0); LYMPHOCYTES % (AUTO) 25.2 % (21.0-51.0); MEAN CORPUSCULAR HEMOGLOBIN 28.6 pg (27.0-34.0); MEAN CORPUSCULAR HGB CONC 34.1 g/dL (33.0-35.0); MEAN CORPUSCULAR VOLUME 83.8 fL (80.0-100.0); MEAN PLATELET VOLUME 8.6 fL (7.4-11.0); MONOCYTES # (AUTO) 0.9 x10^3/uL (0.3-0.8); MONOCYTES % (AUTO) 7.8 % (0.0-13.0); NEUTROPHILS # (AUTO) 7.9 x10^3/uL (2.2-4.8); NEUTROPHILS % (AUTO) 65.7 % (42.0-75.0); PLATELET COUNT 256 X10^3/uL (150.0-450.0); RED BLOOD COUNT 4.68 X10^6/uL (3.5-5.4); RED CELL DISTRIBUTION WIDTH 13.3 % (11.6-16.5)
[2016-12-04] MEDS: SOLU-Medrol 40 MG VIAL IVP SCH (16:21)
[2016-12-04] MEDS: NS 1000 ML 1,000 ML IV SCH (16:21)
[2016-12-04 16:22] LABS: BLOOD UREA NITROGEN 7 mg/dL (7-18); CALCIUM 8.6 mg/dL (8.5-10.1); CARBON DIOXIDE 24.6 mmol/L (21-32); CHLORIDE 110 mmol/L (98-107); COR NA(FOR HYPERGLY) 142 mmol/L (136-145); CREATININE 0.67 mg/dL (0.55-1.02); SODIUM 141 mmol/L (136-145); eGFR BLACK RACES > 60 (>60); eGFR NON BLACK RACES > 60 (>60)
[2016-12-04] MEDS: ROCEPHIN VIAL 1 GM 1 GM in NS 50 ML IV + SPIKE MINIBAG* 50 ML IV SCH (16:22)
[2016-12-04 17:07] VITALS: BMI 18.3
--- NOTE | 2016-12-04 17:26 | RAD ---
HISTORY: COPD, history of cystic fibrosis, cough Study: PA and lateral views of the chest Comparison: 07/29/2016 Findings: There is chronic diffuse interstitial prominence with bronchial thickening compatible with cystic fib rosis. No infiltrate is identified. No effusion or pneumothorax. The cardiac and mediastinal contours are within normal limits. The soft tissues are unremarkable. IMPRESSION: 1. Chronic interstitial changes and bronchial thickening compatible with history of cystic fibrosis. No acute infiltrate identified. Reported By:
[2016-12-04 20:50] LABS: BILIRUBIN,URINE NEGATIVE (NEGATIVE); BLOOD/HEMOGLOBIN,URINE NEGATIVE (NEGATIVE); GLUCOSE, URINE 4+ (NEGATIVE); KETONES,URINE NEGATIVE (NEGATIVE); LEUKOCYTE ESTERASE ,URINE 2+ (NEGATIVE); NITRITES,URINE NEGATIVE (NEGATIVE); PROTEIN,URINE NEGATIVE (NEGATIVE); UROBILINOGEN,URINE NORMAL (NORMAL)
[2016-12-04 21:00] LABS: APPEARANCE,URINE CLEAR (CLEAR); BACTERIA,URINE TRACE /HPF (NEGATIVE); COLOR,URINE YELLOW (YELLOW); RBC,URINE 0-3 /HPF (NEGATIVE); SQUAMOUS EPITHELIAL CELL,UR FEW /HPF (NEGATIVE)
[2016-12-05] MEDS: SOLU-Medrol 40 MG VIAL IVP SCH ×4 (00:54→22:48)
[2016-12-05 06:12] LABS: BASOPHILS # (AUTO) 0.1 X10^3/uL (0.0-0.1); BASOPHILS % (AUTO) 0.6 % (0.2-1.0); HEMATOCRIT 37.3 % (36.0-47.0); HEMOGLOBIN 12.6 g/dL (12.0-16.0); LYMPHOCYTES # (AUTO) 2.1 X10^3/uL (1.3-2.9); LYMPHOCYTES % (AUTO) 15.3 % (21.0-51.0); MEAN CORPUSCULAR HEMOGLOBIN 28.3 pg (27.0-34.0); MEAN CORPUSCULAR HGB CONC 33.8 g/dL (33.0-35.0); MEAN CORPUSCULAR VOLUME 83.7 fL (80.0-100.0); MEAN PLATELET VOLUME 9.4 fL (7.4-11.0); MONOCYTES # (AUTO) 0.7 x10^3/uL (0.3-0.8); MONOCYTES % (AUTO) 5.2 % (0.0-13.0); NEUTROPHILS % (AUTO) 78.9 % (42.0-75.0); PLATELET COUNT 264 X10^3/uL (150.0-450.0); RED BLOOD COUNT 4.45 X10^6/uL (3.5-5.4)
[2016-12-05 06:40] LABS: ALANINE AMINOTRANSFERASE 97 Units/L (12-78); ALBUMIN 2.9 g/dL (3.4-5.0); ALKALINE PHOSPHATASE 78 Units/L (46-116); ASPARTATE AMINO TRANSFERASE 45 Units/L (15-37); BLOOD UREA NITROGEN 6 mg/dL (7-18); CALCIUM 8.8 mg/dL (8.5-10.1); CARBON DIOXIDE 21.3 mmol/L (21-32); CHLORIDE 107 mmol/L (98-107); COR CA(FOR HYPOALB) 9.7 mg/dL (8.5-10.1); COR NA(FOR HYPERGLY) 140 mmol/L (136-145); SODIUM 139 mmol/L (136-145); TOTAL PROTEIN 6.8 g/dL (6.4-8.2); eGFR BLACK RACES > 60 (>60); eGFR NON BLACK RACES > 60 (>60)
[2016-12-05] MEDS: XOPENEX 1.25 MG/3 ML NEBULE NEB SCH ×4 (09:56→21:45)
[2016-12-05] MEDS: LEVAQUIN PREMIX IV 750 MG 750 MG/150 ML BAG IV SCH (10:29)
[2016-12-05] MEDS: ROCEPHIN VIAL 1 GM 1 GM in NS 50 ML IV + SPIKE MINIBAG* 50 ML IV SCH (10:30)
[2016-12-05] MEDS ORDERED: ROBITUSSIN AC PO PRN (19:22)
[2016-12-05] MEDS ORDERED: NORCO 5/325 MG TAB PO PRN (19:22)
[2016-12-05] MEDS ORDERED: CYCLOBENZAPRINE HCL PO PRN (19:22)
[2016-12-05] MEDS ORDERED: FLEXERIL TAB 10 MG PO PRN (19:27)
[2016-12-05] MEDS ORDERED: KETOCONAZOLE PO SCH (19:30)
[2016-12-05] MEDS: BIOTIN PO SCH (21:50)
[2016-12-06 06:03] LABS: BASOPHILS % (AUTO) 0.4 % (0.2-1.0); LYMPHOCYTES # (AUTO) 1.3 X10^3/uL (1.3-2.9); LYMPHOCYTES % (AUTO) 11.9 % (21.0-51.0); MEAN CORPUSCULAR HEMOGLOBIN 28.5 pg (27.0-34.0); MEAN CORPUSCULAR HGB CONC 34.1 g/dL (33.0-35.0); MEAN CORPUSCULAR VOLUME 83.7 fL (80.0-100.0); MEAN PLATELET VOLUME 9.6 fL (7.4-11.0); MONOCYTES # (AUTO) 0.1 x10^3/uL (0.3-0.8); MONOCYTES % (AUTO) 1.3 % (0.0-13.0); NEUTROPHILS # (AUTO) 9.4 x10^3/uL (2.2-4.8); NEUTROPHILS % (AUTO) 86.4 % (42.0-75.0); PLATELET COUNT 258 X10^3/uL (150.0-450.0); RED BLOOD COUNT 4.54 X10^6/uL (3.5-5.4); RED CELL DISTRIBUTION WIDTH 13.1 % (11.6-16.5); WHITE BLOOD COUNT 10.9 X10^3/uL (3.6-10.0)
[2016-12-06] MEDS: SOLU-Medrol 40 MG VIAL IVP SCH ×2 (06:19→15:46)
[2016-12-06 06:35] LABS: ALANINE AMINOTRANSFERASE 120 Units/L (12-78); ALBUMIN 3.1 g/dL (3.4-5.0); ALKALINE PHOSPHATASE 87 Units/L (46-116); ASPARTATE AMINO TRANSFERASE 58 Units/L (15-37); BLOOD UREA NITROGEN 7 mg/dL (7-18); CARBON DIOXIDE 21.8 mmol/L (21-32); CHLORIDE 107 mmol/L (98-107); COR CA(FOR HYPOALB) 9.7 mg/dL (8.5-10.1); COR NA(FOR HYPERGLY) 143 mmol/L (136-145); CREATININE 0.73 mg/dL (0.55-1.02); SODIUM 140 mmol/L (136-145); TOTAL PROTEIN 7.1 g/dL (6.4-8.2); eGFR BLACK RACES > 60 (>60); eGFR NON BLACK RACES > 60 (>60)
[2016-12-06] MEDS ORDERED: PATIENT'S HOME MEDICATION (Fluticasone/Vilanterol [Breo Ellipta 100-25 Mcg Inh] 1 PUFF) IH SCH (09:00)
[2016-12-06] MEDS ORDERED: NIZORAL PO SCH (09:00)
[2016-12-06] MEDS: ROCEPHIN VIAL 1 GM 1 GM in NS 50 ML IV + SPIKE MINIBAG* 50 ML IV SCH (09:34)
[2016-12-06] MEDS: LEVAQUIN PREMIX IV 750 MG 750 MG/150 ML BAG IV SCH (09:34)
[2016-12-06] MEDS: XOPENEX 1.25 MG/3 ML NEBULE NEB SCH ×3 (09:49→16:21)
[2016-12-06] MEDS: BIOTIN PO SCH (12:31)
--- NOTE | 2016-12-06 16:33 | RAD ---
HISTORY: Cystic fibrosis and cough. Dyspnea. PA and lateral views of the chest. Comparison: December 04, 2016. Findings: The trachea is midline. The cardiac silhouette is unremarkable. There are diffusely increased inter stitial opacities seen, compatible with chronic changes of CF. The lungs are otherwise clear without focal/acute infiltrate or effusion. The bony thorax is unremarkable. IMPRESSION: Stable chest without acute changes. Chronic interstitial disease/chronic findings of cystic fibrosis. No lobar or acute pneumonia, pneumothorax, or effusion seen. Reported By:
[2016-12-06] MEDS: NS 1000 ML 1,000 ML IV SCH ×2 (16:42→16:43)
[2016-12-07 01:09] VITALS: BP 113/73
[2016-12-07] MEDS: SOLU-Medrol 40 MG VIAL IVP SCH (01:09)
[2016-12-07] MEDS: BIOTIN PO SCH (01:09)
== END 2016-12-07 01:25 | disposition home or self-care (01) | DRG 202 ==
LOC: UNDOADMIN 10:14 → MED/SURG 10:14
PROVIDERS: ADMIT Internal Medicine; ATTEND Internal Medicine
DX: J20.8 Acute bronchitis due to other specified organisms (principal); R53.83 Other fatigue; E84.9 Cystic fibrosis, unspecified; R05 Cough
CPT/HCPCS: 36415; 71020; 80048; 80053; 81001; 85025; 87040; 87070; 87086; 87205; 93005; 93010; 94640; 94760; A4216; A4222; J0696; J1956; J2920

== ENCOUNTER 2017-08-18 12:11 | Inpatient (IN) | payer MEDICAID ==
[2017-08-18] MEDS ORDERED: TUSSIONEX PENNKINETIC SUSP PO PRN (12:44)
[2017-08-18] MEDS ORDERED: ROCEPHIN 1 GM IV PREMIX 1 GM/50 ML IV.SOLN. IV SCH (13:00)
[2017-08-18 13:29] LABS: BASOPHILS # (AUTO) 0.1 X10^3/uL (0.0-0.1); BASOPHILS % (AUTO) 0.9 % (0.2-1.0); EOSINOPHILS # (AUTO) 0.1 x10^3/uL (0.0-0.2); EOSINOPHILS % (AUTO) 0.8 % (0.9-2.9); HEMATOCRIT 43.5 % (36.0-47.0); HEMOGLOBIN 14.9 g/dL (12.0-16.0); LYMPHOCYTES # (AUTO) 2.7 X10^3/uL (1.3-2.9); LYMPHOCYTES % (AUTO) 21.4 % (21.0-51.0); MEAN CORPUSCULAR HEMOGLOBIN 28.2 pg (27.0-34.0); MEAN CORPUSCULAR HGB CONC 34.2 g/dL (33.0-35.0); MEAN CORPUSCULAR VOLUME 82.6 fL (80.0-100.0); MEAN PLATELET VOLUME 8.6 fL (7.4-11.0); MONOCYTES % (AUTO) 7.5 % (0.0-13.0); NEUTROPHILS # (AUTO) 8.8 x10^3/uL (2.2-4.8); NEUTROPHILS % (AUTO) 69.4 % (42.0-75.0); PLATELET COUNT 302 X10^3/uL (150.0-450.0); RED BLOOD COUNT 5.27 X10^6/uL (3.5-5.4); RED CELL DISTRIBUTION WIDTH 13.2 % (11.6-16.5); WHITE BLOOD COUNT 12.6 X10^3/uL (3.6-10.0)
[2017-08-18] MEDS ORDERED: NS 1/2 1000 ML IV 1,000 ML IV ONE (13:29)
[2017-08-18 13:38] LABS: ALANINE AMINOTRANSFERASE 90 Units/L (12-78); ALBUMIN 3.1 g/dL (3.4-5.0); ALKALINE PHOSPHATASE 129 Units/L (46-116); ASPARTATE AMINO TRANSFERASE 54 Units/L (15-37); BLOOD UREA NITROGEN 6 mg/dL (7-18); CALCIUM 8.2 mg/dL (8.5-10.1); CARBON DIOXIDE 25.2 mmol/L (21-32); CHLORIDE 103 mmol/L (98-107); COR CA(FOR HYPOALB) 8.9 mg/dL (8.5-10.1); CREATININE 0.69 mg/dL (0.55-1.02); SODIUM 136 mmol/L (136-145); TOTAL PROTEIN 7.8 g/dL (6.4-8.2); eGFR BLACK RACES > 60 (>60); eGFR NON BLACK RACES > 60 (>60)
[2017-08-18] MEDS: NS 1/2 1000 ML IV 1,000 ML IV SCH (13:38)
[2017-08-18 13:41] VITALS: BMI 18.3
[2017-08-18] MEDS: DUONEB 0.5 MG/3 MG NEB SCH ×2 (13:50→16:59)
--- NOTE | 2017-08-18 14:09 | RAD ---
Indication: Cough and pneumonia with cystic fibrosis Exam: PA and lateral Comparison: 12/06/2016 Findings: The heart is normal. The pulmonary vessels are normal. Some mild reticular nodular densitie s scattered along both upper lobes with some partially calcified nodules bilaterally which are more p rominent and slightly more numerous there is focal scarring along the right apex medially which is un changed. No effusion or consolidation is seen. Impression: Mild reticular nodular densities and partially calcified nodules along both upper lobes which is more prominent . This is probably due to old granulomatous disease and underlying cystic fibrosis. Sugges t follow-up to assure long-term stability. Reported By:
[2017-08-18] MEDS: VIBRAMYCIN 100 MG in NS 100 ML IV + SPIKE MINIBAG* 100 ML IV SCH ×2 (14:18→21:47)
[2017-08-18] MEDS: ROBITUSSIN DM PO SCH ×3 (14:18→21:22)
[2017-08-19] MEDS: DUONEB 0.5 MG/3 MG NEB SCH ×4 (00:50→18:45)
[2017-08-19] MEDS: NS 1/2 1000 ML IV 1,000 ML IV SCH ×2 (04:35→17:40)
[2017-08-19] MEDS ORDERED: NS 1/2 1000 ML IV 1,000 ML IV ONE (04:35)
[2017-08-19 06:06] LABS: BASOPHILS # (AUTO) 0.1 X10^3/uL (0.0-0.1); EOSINOPHILS # (AUTO) 0.2 x10^3/uL (0.0-0.2); EOSINOPHILS % (AUTO) 1.8 % (0.9-2.9); HEMATOCRIT 38.2 % (36.0-47.0); LYMPHOCYTES # (AUTO) 3.8 X10^3/uL (1.3-2.9); LYMPHOCYTES % (AUTO) 34.4 % (21.0-51.0); MEAN CORPUSCULAR HGB CONC 34.1 g/dL (33.0-35.0); MEAN CORPUSCULAR VOLUME 82.2 fL (80.0-100.0); MEAN PLATELET VOLUME 8.8 fL (7.4-11.0); MONOCYTES % (AUTO) 8.7 % (0.0-13.0); NEUTROPHILS # (AUTO) 6.1 x10^3/uL (2.2-4.8); NEUTROPHILS % (AUTO) 54.1 % (42.0-75.0); PLATELET COUNT 262 X10^3/uL (150.0-450.0); RED BLOOD COUNT 4.65 X10^6/uL (3.5-5.4); RED CELL DISTRIBUTION WIDTH 13.5 % (11.6-16.5); WHITE BLOOD COUNT 11.2 X10^3/uL (3.6-10.0)
[2017-08-19 06:22] LABS: ALANINE AMINOTRANSFERASE 70 Units/L (12-78); ALBUMIN 2.6 g/dL (3.4-5.0); ALKALINE PHOSPHATASE 108 Units/L (46-116); ASPARTATE AMINO TRANSFERASE 42 Units/L (15-37); BLOOD UREA NITROGEN 4 mg/dL (7-18); CALCIUM 7.5 mg/dL (8.5-10.1); CARBON DIOXIDE 20.7 mmol/L (21-32); CHLORIDE 107 mmol/L (98-107); COR CA(FOR HYPOALB) 8.6 mg/dL (8.5-10.1); SODIUM 138 mmol/L (136-145); TOTAL PROTEIN 6.6 g/dL (6.4-8.2); eGFR BLACK RACES > 60 (>60); eGFR NON BLACK RACES > 60 (>60)
[2017-08-19] MEDS: ROCEPHIN VIAL 1 GM 1 GM in NS 100 ML IV + SPIKE MINIBAG* 100 ML IV SCH (08:55)
[2017-08-19] MEDS: ROBITUSSIN DM PO SCH ×4 (08:55→21:05)
[2017-08-19 09:25] LABS: BILIRUBIN,URINE NEGATIVE (NEGATIVE); BLOOD/HEMOGLOBIN,URINE NEGATIVE (NEGATIVE); GLUCOSE, URINE NEGATIVE (NEGATIVE); KETONES,URINE NEGATIVE (NEGATIVE); LEUKOCYTE ESTERASE ,URINE NEGATIVE (NEGATIVE); NITRITES,URINE NEGATIVE (NEGATIVE); PROTEIN,URINE NEGATIVE (NEGATIVE); UROBILINOGEN,URINE NORMAL (NORMAL)
[2017-08-19 09:27] LABS: APPEARANCE,URINE SLIGHTLY HAZY (CLEAR); COLOR,URINE YELLOW (YELLOW)
[2017-08-19 09:43] LABS: ABG ALLEN TEST POS; ABG BASE EXCESS -1.7 mmol/L (-2.0-2.0); ABG HCO3 21.7 mmol/L (22-26)
[2017-08-19] MEDS: VIBRAMYCIN 100 MG in NS 100 ML IV + SPIKE MINIBAG* 100 ML IV SCH ×2 (10:30→20:55)
[2017-08-19] MEDS ORDERED: ZOFRAN INJ 4 MG VIAL IVP SCH (11:00)
--- NOTE | 2017-08-19 12:17 | DR.H&P ---
H&P - History & Physical for Day of: H&P Date: 08/18/17 - Chief Complaint Chief Complaint: Dyspnea, weakness, fever - Allergies Allergies/Adverse Reactions: Allergies Allergy/AdvReac Type Severity Reaction Status Date / Time cashew nut Allergy Verified 08/18/17 13:28 loracarbef [From Lorabid] Allergy Verified 08/18/17 13:28 - History of Present Illness History of Present Illness: The patient is a 22-year-old female who presents to the clinic with complaint of increasing dyspnea as well as right lower lobe lung pain. Patient has cystic fibrosis. States that she has progressively over the last couple weeks had increasing dyspnea with exertion and lung pain. States she is using her CPT and neb treatments. States she is running low- grade fevers as well. States that she has no energy. Is having increasing peripheral edema. - Past Medical History Additional Medical History: Cysatic Fibrosis, Factor 5, Bilateral knee pain - Past Surgical History Surgical History: Appendectomy, Ortho Surgery, Other - Family History Family Medical History: Diabetes Mellitus, [place], Heart Failure - Social History Does patient currently use any type of tobacco product: No Have you used tobacco products in the last 12 months: No Type of Tobacco Use: None Does any household member use tobacco: No Alcohol Use: None Drug Use: Prescription Drugs - Medications Home Medications: Clonazepam 2 mg PO BID PRN 08/18/17 [History Confirmed 08/18/17] Cyproheptadine HCl 4 mg PO TID 08/18/17 [History Confirmed 08/18/17] Hydrocodone-Acet 7.5 mg/325 mg [[place] 7.5/325 mg Tab] 1 tab PO BID 08/18/17 [ History Confirmed 08/18/17] Pancrelipase (Lipase/Prot/[place]) [Creon] 5 cap PO TID 08/18/17 [History Confirmed 08/18/17] Phytonadione (Vit K) [Mephyton] 5 mg PO DAILY 08/18/17 [History Confirmed ] - Review of Systems Constitutional: Fever, Weakness, Malaise Eyes: No Symptoms Reported ENT: No Symptoms Reported Respiratory: Shortness of Breath, SOB with Excertion, Pleuritic Pain Cardiovascular: No Symptoms Reported Gastrointestinal: No Symptoms Reported Genitourinary: No Symptoms Reported Musculoskeletal: No Symptoms Reported Skin: No Symptoms Reported Neurological: No Symptoms Reported - Physical Exam Vital Signs: Temperature 98.6 F Pulse Rate [Left Brachial] 93 Pulse Rate 103 Respiratory Rate 17 Blood Pressure [Left Arm] 95/56 Blood Pressure [Right Arm] 113/73 Blood Pressure 113/73 O2 Sat by Pulse Oximetry 96 Oriented: Normal Eyes: Normal Ear: Normal Nose: Normal Throat: Normal Respiratory: RLL Diminished Cardiovascular: Normal : Normal Auscultation: Bowel Sounds: Normal Palpation: Normal Tenderness: Normal Skin: Normal Musculoskeletal: Normal Psychiatric: Normal Mood Description: Calm Affect: Normal Speech Pattern: Clear - Assessment/Plan (1) Chronic bronchitis with acute exacerbation Status: Acute Plan: CXR, Nebs, CPT, Antibiotics (2) Cystic fibrosis Status: Acute Plan: CXR, Nebs, CPT, Antibiotics (3) Peripheral edema Status: Acute Plan: Monitor edema
[2017-08-19] MEDS ORDERED: XYLOCAINE 1 % (PLAIN) ONE (13:30)
--- NOTE | 2017-08-19 14:20 | RAD ---
Chest, one view Indication: PICC placement, cystic fibrosis Comparison: 08/17/2017 Findings: Right-sided PICC terminates over the proximal right atrium without pneumothorax. The heart size is normal. Upper lobe predominant reticular nodular opacities are again noted and unchanged. No new focal infiltrate or significant effusion is identified. There is no acute osseous abnormality. Impression: Satisfactory right-sided PICC placement without pneumothorax. Reported By:
--- NOTE | 2017-08-19 14:37 | DR.UPDATE ---
H&P Update History and Physical Update: History and Physical reviewed and patient examined. Changes noted: NO Yes with the following: Procedures (ALL) - Central Line Placement PCM.CLCO: written consent Time out performed: Yes Patient placed pm monitor/pulse ox: No MD prep: mask, gown, gloves, other Centrial line prep: chlorhexidine scrub Local anesthsia used: lidocane 1% Ultrasound used for placement: Yes (right basilic and cephalic id via u/s) Central line lumen ininserted: double (5fr power port. trimmed length 38cm. none exposed. one attempt at basilic unsuccessful. second attempt at cephalic successful) Post procedure xray: tip oc catheter in good position, no pneumothorax seen Patient tolerated procedure: Yes Complications: none
[2017-08-19] MEDS: CREON PO SCH ×2 (14:57→21:05)
[2017-08-19] MEDS: PERIACTIN TAB 4 MG PO SCH ×2 (14:57→21:05)
--- NOTE | 2017-08-19 18:32 | PCM.PROG ---
Progress Note - Progress Note for Day of Date: 08/19/17 - Subjective Subjective: 22 FEMALE DIRECT ADMIT FROM DR MAHAJAN OFFICE ONE DAY AGO WITH RESP SYMPTOMS SUGGESTIVE OF PNEUMONIA. PT HAS CYSTIC FIRBOSIS AND HX OF CHRONIC BRONCHITIS. PT CONTINUES TO CO PRODUCTIVE COUGH AND FATIGUE. PT HAS LOWER ABD TENDERNESS ON PALPATION AND CO CONSTIPATION. - Past Medical Family Social History Past Med/Fam/Surg Hx: No changes since H&P Allergies: Allergies cashew nut Allergy (Verified 08/18/17 13:28) loracarbef [From Lorabid] Allergy (Verified 08/18/17 13:28) - Review of Systems ROS: No change since H&P - Vital Signs and I&O's Vital Signs: Temperature 97.7 F Pulse Rate [Left Brachial] 107 Pulse Rate 103 Respiratory Rate 18 Blood Pressure [Left Arm] 110/73 Blood Pressure [Right Arm] 113/73 Blood Pressure 113/73 O2 Sat by Pulse Oximetry 96 Intake and Output: Intake & Output 08/17/17 08/18/17 08/19/17 08/20/17 11:59 11:59 11:59 11:59 Intake Total 1514 1000 Balance 1514 1000 - Physical Exam Oriented: Normal Eyes: Normal Ear: Normal Nose: Normal Throat: Normal Respiratory: Diminished, Rhonchi Cardiovascular: Normal : Normal Auscultation: Bowel Sounds: Normal Tenderness: Suprapubic, Mild Skin: Normal Musculoskeletal: Normal Psychiatric: Normal Mood Description: Calm Affect: Normal Speech Pattern: Clear - Laboratory and Diagnostics Result Diagrams: 08/19/17 05:50 08/19/17 05:50 Labs: 08/18/17 14:03 Sputum - Expectorated Sputum Sputum Culture - Preliminary 08/18/17 14:03 Sputum - Expectorated Sputum - Final Laboratory WBC 11.2 X10^3/uL (3.6-10.0) H 08/19/17 05:50 RBC 4.65 X10^6/uL (3.5-5.4) 08/19/17 05:50 Hgb 13.0 g/dL (12.0-16.0) 08/19/17 05:50 Hct 38.2 % (36.0-47.0) 08/19/17 05:50 MCV 82.2 fL (80.0-100.0) 08/19/17 05:50 MCH 28.0 pg (27.0-34.0) 08/19/17 05:50 MCHC 34.1 g/dL (33.0-35.0) 08/19/17 05:50 RDW 13.5 % (11.6-16.5) 08/19/17 05:50 Plt Count 262 X10^3/uL (150.0-450.0) 08/19/17 05:50 MPV 8.8 fL (7.4-11.0) 08/19/17 05:50 Neut % (Auto) 54.1 % (42.0-75.0) 08/19/17 05:50 Lymph % (Auto) 34.4 % (21.0-51.0) 08/19/17 05:50 [place] % (Auto) 8.7 % (0.0-13.0) 08/19/17 05:50 Eos % (Auto) 1.8 % (0.9-2.9) 08/19/17 05:50 Baso % (Auto) 1.0 % (0.2-1.0) 08/19/17 05:50 Neut # (Auto) 6.1 x10^3/uL (2.2-4.8) H 08/19/17 05:50 Lymph # (Auto) 3.8 X10^3/uL (1.3-2.9) H 08/19/17 05:50 [place] # (Auto) 1.0 x10^3/uL (0.3-0.8) H 08/19/17 05:50 Eos # (Auto) 0.2 x10^3/uL (0.0-0.2) 08/19/17 05:50 Baso # (Auto) 0.1 X10^3/uL (0.0-0.1) 08/19/17 05:50 Absolute Nucleated RBC 0.1 /100WBC 08/19/17 05:50 Sample Site Lr 08/19/17 09:38 ABG pH 7.440 (7.35-7.45) 08/19/17 09:38 ABG pCO2 32.0 mmHg (35.0-45.0) L 08/19/17 09:38 ABG pO2 78.0 mmHg (80.0-100.0) L 08/19/17 09:38 ABG HCO3 21.7 mmol/L (22-26) L 08/19/17 09:38 ABG O2 Saturation 96.0 % (90-100) 08/19/17 09:38 ABG Base Excess -1.7 mmol/L (-2.0-2.0) 08/19/17 09:38 Momo Test Pos 08/19/17 09:38 A-a Gradient 32.0 mmHg 08/19/17 09:38 FiO2 21.000 08/19/17 09:38 Blood Gas Comments Pt greta well. cdn 08/19/17 09:38 Sodium 138 mmol/L (136-145) 08/19/17 05:50 Corrected Sodium TNP 08/19/17 05:50 Potassium 3.4 mmol/L (3.5-5.1) L 08/19/17 05:50 Chloride 107 mmol/L (98-107) 08/19/17 05:50 Carbon Dioxide 20.7 mmol/L (21-32) L 08/19/17 05:50 BUN 4 mg/dL (7-18) L 08/19/17 05:50 Creatinine 0.70 mg/dL (0.55-1.02) 08/19/17 05:50 Est GFR (MDRD) Af Amer > 60 (>60) 08/19/17 05:50 Est GFR (MDRD) Non-Af > 60 (>60) 08/19/17 05:50 Glucose 102 mg/dL (65-99) H 08/19/17 05:50 Calcium 7.5 mg/dL (8.5-10.1) L 08/19/17 05:50 Corrected Calcium 8.6 mg/dL (8.5-10.1) 08/19/17 05:50 Total Bilirubin 1.10 mg/dL (0.2-1.0) H 08/19/17 05:50 AST 42 Units/L (15-37) H 08/19/17 05:50 ALT 70 Units/L (12-78) 08/19/17 05:50 Alkaline Phosphatase 108 Units/L (46-116) 08/19/17 05:50 Total Protein 6.6 g/dL (6.4-8.2) 08/19/17 05:50 Albumin 2.6 g/dL (3.4-5.0) L 08/19/17 05:50 Globulin 4.0 g/dL (2.5-4.5) 08/19/17 05:50 Albumin/Globulin Ratio 0.7 Ratio (1.1-2.1) L 08/19/17 05:50 Specimen Type Clean catch urine 08/19/17 09:06 Urine Color Yellow (YELLOW) 08/19/17 09:06 Urine Appearance Slightly hazy (CLEAR) 08/19/17 09:06 Urine pH 6.0 (5.0 - 8.0) 08/19/17 09:06 Ur Specific [place] 1.010 (1.000-1.030) 08/19/17 09:06 Urine Protein Negative (NEGATIVE) 08/19/17 09:06 Urine Glucose (UA) Negative (NEGATIVE) 08/19/17 09:06 Urine Ketones Negative (NEGATIVE) 08/19/17 09:06 Urine Occult Blood Negative (NEGATIVE) 08/19/17 09:06 Urine Nitrite Negative (NEGATIVE) 08/19/17 09:06 Urine Bilirubin Negative (NEGATIVE) 08/19/17 09:06 Urine Urobilinogen Normal (NORMAL) 08/19/17 09:06 Ur Leukocyte Esterase Negative (NEGATIVE) 08/19/17 09:06 - Plan (1) Chronic bronchitis with acute exacerbation Status: Acute Plan: CXR, Nebs, CPT, Antibiotics (2) Cystic fibrosis Status: Acute Plan: CXR, Nebs, CPT, Antibiotics (3) Abdominal pain Status: Acute Plan: UA, KUB
[2017-08-19] MEDS: PULMICORT NEB TX 0.5 MG NEB SCH (18:45)
[2017-08-19] MEDS: MUCOMYST 20% 200 MG/ML NEB SCH (18:45)
[2017-08-19] MEDS: NORCO 7.5/325 MG TAB PO PRN (19:28)
[2017-08-19] MEDS ORDERED: KLONOPIN TAB 1 MG PO PRN (21:00)
[2017-08-20] MEDS: DUONEB 0.5 MG/3 MG NEB SCH ×6 (00:53→21:22)
[2017-08-20] MEDS ORDERED: NS 1/2 1000 ML IV 1,000 ML IV ONE (01:44)
[2017-08-20] MEDS: NS 1/2 1000 ML IV 1,000 ML IV SCH ×2 (01:47→21:33)
--- NOTE | 2017-08-20 01:47 | RAD ---
AP abdomen Indication: Lower abdominal pain Findings: The bowel gas pattern is normal. There is mildly increased colonic stool burden. No gross f ree air. Impression: No acute abdominal process. Mild constipation. Reported By:
[2017-08-20] MEDS: COLACE CAP 100 MG PO SCH ×2 (02:39→20:09)
[2017-08-20] MEDS: MILK OF MAGNESIA PO SCH ×3 (02:39→20:10)
[2017-08-20] MEDS: NORCO 7.5/325 MG TAB PO PRN ×2 (02:39→20:10)
[2017-08-20] MEDS: PERIACTIN TAB 4 MG PO SCH ×3 (06:11→21:33)
[2017-08-20] MEDS: CREON PO SCH ×3 (06:12→21:34)
[2017-08-20 06:38] LABS: BASOPHILS # (AUTO) 0.1 X10^3/uL (0.0-0.1); EOSINOPHILS # (AUTO) 0.3 x10^3/uL (0.0-0.2); EOSINOPHILS % (AUTO) 2.7 % (0.9-2.9); HEMATOCRIT 35.9 % (36.0-47.0); HEMOGLOBIN 12.2 g/dL (12.0-16.0); LYMPHOCYTES # (AUTO) 3.8 X10^3/uL (1.3-2.9); LYMPHOCYTES % (AUTO) 38.4 % (21.0-51.0); MEAN CORPUSCULAR HGB CONC 33.9 g/dL (33.0-35.0); MEAN CORPUSCULAR VOLUME 82.6 fL (80.0-100.0); MEAN PLATELET VOLUME 8.9 fL (7.4-11.0); MONOCYTES % (AUTO) 10.3 % (0.0-13.0); NEUTROPHILS # (AUTO) 4.7 x10^3/uL (2.2-4.8); NEUTROPHILS % (AUTO) 47.6 % (42.0-75.0); PLATELET COUNT 234 X10^3/uL (150.0-450.0); RED BLOOD COUNT 4.34 X10^6/uL (3.5-5.4); RED CELL DISTRIBUTION WIDTH 13.3 % (11.6-16.5); WHITE BLOOD COUNT 9.8 X10^3/uL (3.6-10.0)
[2017-08-20 06:54] LABS: LACTIC ACID 1.9 mmol/L (0.4-2.0)
[2017-08-20 06:58] LABS: ALANINE AMINOTRANSFERASE 64 Units/L (12-78); ALBUMIN 2.3 g/dL (3.4-5.0); ALKALINE PHOSPHATASE 100 Units/L (46-116); ASPARTATE AMINO TRANSFERASE 44 Units/L (15-37); BLOOD UREA NITROGEN 4 mg/dL (7-18); CALCIUM 7.4 mg/dL (8.5-10.1); CARBON DIOXIDE 21.8 mmol/L (21-32); CHLORIDE 105 mmol/L (98-107); COR CA(FOR HYPOALB) 8.8 mg/dL (8.5-10.1); COR NA(FOR HYPERGLY) 137 mmol/L (136-145); CREATININE 0.76 mg/dL (0.55-1.02); SODIUM 136 mmol/L (136-145); TOTAL PROTEIN 6.1 g/dL (6.4-8.2); eGFR BLACK RACES > 60 (>60); eGFR NON BLACK RACES > 60 (>60)
[2017-08-20 08:49] LABS: RHEUMATOID FACTOR NEGATIVE (NEGATIVE)
--- NOTE | 2017-08-20 09:18 | RAD ---
Examination: Left knee, two views History: Pain, no injury Findings: There is no evidence for demineralization, trauma, arthropathy or synovial effusion. Impression: Normal two-view examination left knee. Reported By:
--- NOTE | 2017-08-20 09:18 | RAD ---
Examination: Right knee, two views history: Pain, no injury Findings: There is no evidence for recent injury, bone destruction, arthritis or soft tissue abnormal ity. Articular compartments are preserved. Impression: No significant abnormality. Reported By:
[2017-08-20] MEDS: MEPHYTON PO SCH (09:26)
[2017-08-20] MEDS: ROBITUSSIN DM PO SCH ×4 (09:27→20:10)
[2017-08-20] MEDS: VIBRAMYCIN 100 MG in NS 100 ML IV + SPIKE MINIBAG* 100 ML IV SCH (09:27)
[2017-08-20] MEDS: ROCEPHIN VIAL 1 GM 1 GM in NS 100 ML IV + SPIKE MINIBAG* 100 ML IV SCH (09:27)
[2017-08-20] MEDS: MUCOMYST 20% 200 MG/ML NEB SCH ×4 (13:04→21:22)
[2017-08-20] MEDS: PULMICORT NEB TX 0.5 MG NEB SCH ×3 (13:35→21:22)
--- NOTE | 2017-08-20 14:04 | PCM.PROG ---
Progress Note - Progress Note for Day of Date: 08/20/17 - Subjective Subjective: 22 FEMALE DIRECT ADMIT FROM DR MAHAJAN OFFICE ONE DAY AGO WITH RESP SYMPTOMS SUGGESTIVE OF PNEUMONIA. PT HAS CYSTIC FIRBOSIS AND HX OF CHRONIC BRONCHITIS. PT CONTINUES TO CO PRODUCTIVE COUGH AND FATIGUE. PT HAS LOWER ABD TENDERNESS ON PALPATION AND CO CONSTIPATION. SPUTUM RESULTS ON CHART THIS AM, WILL D/C DOXY AND START IV LEVAQUIN - Past Medical Family Social History Past Med/Fam/Surg Hx: No changes since H&P Allergies: Allergies cashew nut Allergy (Verified 08/18/17 13:28) loracarbef [From Lorabid] Allergy (Verified 08/18/17 13:28) - Review of Systems ROS: No change since H&P - Vital Signs and I&O's Vital Signs: Temperature 97.4 F Pulse Rate [Left Brachial] 94 Pulse Rate 103 Respiratory Rate 20 Blood Pressure [Left Arm] 87/54 Blood Pressure [Right Arm] 113/73 Blood Pressure 113/73 O2 Sat by Pulse Oximetry 96 Intake and Output: Intake & Output 08/18/17 08/19/17 08/20/17 08/21/17 11:59 11:59 11:59 11:59 Intake Total 1514 1885 Balance 1514 1885 - Physical Exam Oriented: Normal Eyes: Normal Ear: Normal Nose: Normal Throat: Normal Respiratory: Diminished, Rhonchi Cardiovascular: Normal : Normal Auscultation: Bowel Sounds: Normal Tenderness: Suprapubic, Mild Skin: Normal Musculoskeletal: Normal Psychiatric: Normal Mood Description: Calm Affect: Normal Speech Pattern: Clear, Appropriate - Laboratory and Diagnostics Result Diagrams: 08/20/17 06:04 08/20/17 06:04 Labs: 08/18/17 13:14 Blood Blood Culture - Preliminary 08/18/17 13:10 Blood Blood Culture - Preliminary 08/18/17 14:03 Sputum - Expectorated Sputum Sputum Culture - Final Pseudomonas Aeruginosa 08/18/17 14:03 Sputum - Expectorated Sputum - Final Laboratory WBC 9.8 X10^3/uL (3.6-10.0) 08/20/17 06:04 RBC 4.34 X10^6/uL (3.5-5.4) 08/20/17 06:04 Hgb 12.2 g/dL (12.0-16.0) 08/20/17 06:04 Hct 35.9 % (36.0-47.0) L 08/20/17 06:04 MCV 82.6 fL (80.0-100.0) 08/20/17 06:04 MCH 28.0 pg (27.0-34.0) 08/20/17 06:04 MCHC 33.9 g/dL (33.0-35.0) 08/20/17 06:04 RDW 13.3 % (11.6-16.5) 08/20/17 06:04 Plt Count 234 X10^3/uL (150.0-450.0) 08/20/17 06:04 MPV 8.9 fL (7.4-11.0) 08/20/17 06:04 Neut % (Auto) 47.6 % (42.0-75.0) 08/20/17 06:04 Lymph % (Auto) 38.4 % (21.0-51.0) 08/20/17 06:04 [place] % (Auto) 10.3 % (0.0-13.0) 08/20/17 06:04 Eos % (Auto) 2.7 % (0.9-2.9) 08/20/17 06:04 Baso % (Auto) 1.0 % (0.2-1.0) 08/20/17 06:04 Neut # (Auto) 4.7 x10^3/uL (2.2-4.8) 08/20/17 06:04 Lymph # (Auto) 3.8 X10^3/uL (1.3-2.9) H 08/20/17 06:04 [place] # (Auto) 1.0 x10^3/uL (0.3-0.8) H 08/20/17 06:04 Eos # (Auto) 0.3 x10^3/uL (0.0-0.2) H 08/20/17 06:04 Baso # (Auto) 0.1 X10^3/uL (0.0-0.1) 08/20/17 06:04 Absolute Nucleated RBC 0.2 /100WBC 08/20/17 06:04 Sample Site Lr 08/19/17 09:38 ABG pH 7.440 (7.35-7.45) 08/19/17 09:38 ABG pCO2 32.0 mmHg (35.0-45.0) L 08/19/17 09:38 ABG pO2 78.0 mmHg (80.0-100.0) L 08/19/17 09:38 ABG HCO3 21.7 mmol/L (22-26) L 08/19/17 09:38 ABG O2 Saturation 96.0 % (90-100) 08/19/17 09:38 ABG Base Excess -1.7 mmol/L (-2.0-2.0) 08/19/17 09:38 Momo Test Pos 08/19/17 09:38 A-a Gradient 32.0 mmHg 08/19/17 09:38 FiO2 21.000 08/19/17 09:38 Blood Gas Comments Pt greta well. cdn 08/19/17 09:38 Sodium 136 mmol/L (136-145) 08/20/17 06:04 Corrected Sodium 137 mmol/L (136-145) 08/20/17 06:04 Potassium 3.5 mmol/L (3.5-5.1) 08/20/17 06:04 Chloride 105 mmol/L (98-107) 08/20/17 06:04 Carbon Dioxide 21.8 mmol/L (21-32) 08/20/17 06:04 BUN 4 mg/dL (7-18) L 08/20/17 06:04 Creatinine 0.76 mg/dL (0.55-1.02) 08/20/17 06:04 Est GFR (MDRD) Af Amer > 60 (>60) 08/20/17 06:04 Est GFR (MDRD) Non-Af > 60 (>60) 08/20/17 06:04 Glucose 133 mg/dL (65-99) H 08/20/17 06:04 Lactic Acid 1.9 mmol/L (0.4-2.0) 08/20/17 06:04 Calcium 7.4 mg/dL (8.5-10.1) L 08/20/17 06:04 Corrected Calcium 8.8 mg/dL (8.5-10.1) 08/20/17 06:04 Total Bilirubin 1.00 mg/dL (0.2-1.0) 08/20/17 06:04 AST 44 Units/L (15-37) H 08/20/17 06:04 ALT 64 Units/L (12-78) 08/20/17 06:04 Alkaline Phosphatase 100 Units/L (46-116) 08/20/17 06:04 Total Protein 6.1 g/dL (6.4-8.2) L 08/20/17 06:04 Albumin 2.3 g/dL (3.4-5.0) L 08/20/17 06:04 Globulin 3.8 g/dL (2.5-4.5) 08/20/17 06:04 Albumin/Globulin Ratio 0.6 Ratio (1.1-2.1) L 08/20/17 06:04 Specimen Type Clean catch urine 08/19/17 09:06 Urine Color Yellow (YELLOW) 08/19/17 09:06 Urine Appearance Slightly hazy (CLEAR) 08/19/17 09:06 Urine pH 6.0 (5.0 - 8.0) 08/19/17 09:06 Ur Specific [place] 1.010 (1.000-1.030) 08/19/17 09:06 Urine Protein Negative (NEGATIVE) 08/19/17 09:06 Urine Glucose (UA) Negative (NEGATIVE) 08/19/17 09:06 Urine Ketones Negative (NEGATIVE) 08/19/17 09:06 Urine Occult Blood Negative (NEGATIVE) 08/19/17 09:06 Urine Nitrite Negative (NEGATIVE) 08/19/17 09:06 Urine Bilirubin Negative (NEGATIVE) 08/19/17 09:06 Urine Urobilinogen Normal (NORMAL) 08/19/17 09:06 Ur Leukocyte Esterase Negative (NEGATIVE) 08/19/17 09:06 Rheumatoid Factor Negative (NEGATIVE) 08/20/17 06:04 - Plan (1) Chronic bronchitis with acute exacerbation Status: Acute Plan: CXR, Nebs, CPT, Antibiotics. MUCOMYST, BUDESONIDE (2) Cystic fibrosis Status: Acute Plan: CXR, Nebs, CPT, Antibiotics (3) Abdominal pain Status: Acute Plan: UA, KUB (4) Pseudomonas aeruginosa infection Status: Acute Plan: IV LEVAQUIN, RESP THERAPY
[2017-08-20] MEDS: LEVAQUIN PREMIX IV 750 MG 750 MG/150 ML BAG IV SCH (15:17)
[2017-08-21] MEDS: DUONEB 0.5 MG/3 MG NEB SCH ×5 (00:56→21:20)
[2017-08-21] MEDS: CREON PO SCH ×3 (05:17→21:25)
[2017-08-21] MEDS: PERIACTIN TAB 4 MG PO SCH ×3 (05:17→21:25)
[2017-08-21] MEDS: NORCO 7.5/325 MG TAB PO PRN ×2 (07:10→21:26)
[2017-08-21 07:35] LABS: ALANINE AMINOTRANSFERASE 59 Units/L (12-78); ALBUMIN 2.4 g/dL (3.4-5.0); ALKALINE PHOSPHATASE 100 Units/L (46-116); ASPARTATE AMINO TRANSFERASE 38 Units/L (15-37); BLOOD UREA NITROGEN 6 mg/dL (7-18); CALCIUM 7.5 mg/dL (8.5-10.1); CARBON DIOXIDE 24.9 mmol/L (21-32); CHLORIDE 108 mmol/L (98-107); COR CA(FOR HYPOALB) 8.8 mg/dL (8.5-10.1); CREATININE 0.69 mg/dL (0.55-1.02); SODIUM 141 mmol/L (136-145); TOTAL PROTEIN 6.4 g/dL (6.4-8.2); eGFR BLACK RACES > 60 (>60); eGFR NON BLACK RACES > 60 (>60)
[2017-08-21 08:02] LABS: BASOPHILS # (AUTO) 0.1 X10^3/uL (0.0-0.1); EOSINOPHILS # (AUTO) 0.2 x10^3/uL (0.0-0.2); HEMOGLOBIN 12.3 g/dL (12.0-16.0); LYMPHOCYTES # (AUTO) 3.2 X10^3/uL (1.3-2.9); LYMPHOCYTES % (AUTO) 38.9 % (21.0-51.0); MEAN CORPUSCULAR HEMOGLOBIN 28.2 pg (27.0-34.0); MEAN CORPUSCULAR HGB CONC 34.1 g/dL (33.0-35.0); MEAN CORPUSCULAR VOLUME 82.6 fL (80.0-100.0); MEAN PLATELET VOLUME 8.9 fL (7.4-11.0); MONOCYTES # (AUTO) 0.8 x10^3/uL (0.3-0.8); MONOCYTES % (AUTO) 9.6 % (0.0-13.0); NEUTROPHILS % (AUTO) 48.5 % (42.0-75.0); PLATELET COUNT 244 X10^3/uL (150.0-450.0); RED BLOOD COUNT 4.36 X10^6/uL (3.5-5.4); RED CELL DISTRIBUTION WIDTH 13.2 % (11.6-16.5); WHITE BLOOD COUNT 8.2 X10^3/uL (3.6-10.0)
[2017-08-21] MEDS: ROCEPHIN VIAL 1 GM 1 GM in NS 100 ML IV + SPIKE MINIBAG* 100 ML IV SCH (09:20)
[2017-08-21] MEDS: LEVAQUIN PREMIX IV 750 MG 750 MG/150 ML BAG IV SCH (09:20)
[2017-08-21] MEDS: MEPHYTON PO SCH ×2 (09:20→09:29)
[2017-08-21] MEDS: ROBITUSSIN DM PO SCH ×5 (09:20→21:26)
[2017-08-21] MEDS: MILK OF MAGNESIA PO SCH ×2 (09:20→21:26)
[2017-08-21] MEDS: PULMICORT NEB TX 0.5 MG NEB SCH ×2 (09:58→21:20)
[2017-08-21] MEDS: MUCOMYST 20% 200 MG/ML NEB SCH ×4 (09:58→21:19)
[2017-08-21] MEDS ORDERED: NS 1/2 1000 ML IV 1,000 ML IV ONE (11:30)
[2017-08-21] MEDS: NS 1/2 1000 ML IV 1,000 ML IV SCH (12:22)
[2017-08-21] MEDS: ZOFRAN INJ 4 MG VIAL IVP PRN (14:36)
[2017-08-21] MEDS: COLACE CAP 100 MG PO SCH (21:25)
[2017-08-22] MEDS: DUONEB 0.5 MG/3 MG NEB SCH ×4 (00:47→17:16)
[2017-08-22] MEDS: NS 1/2 1000 ML IV 1,000 ML IV SCH ×2 (03:00→21:13)
[2017-08-22] MEDS ORDERED: NS 1/2 1000 ML IV 1,000 ML IV ONE ×2 (03:52→20:47)
[2017-08-22] MEDS: CREON PO SCH ×3 (06:11→21:17)
[2017-08-22] MEDS: PERIACTIN TAB 4 MG PO SCH (06:11)
--- NOTE | 2017-08-22 07:17 | RAD ---
HISTORY: Pneumonia Study: Single-view chest Comparison: 08/19/2017 Findings: The trachea is midline. The cardiac silhouette is unremarkable. There is a right upper extremity PICC line in place and unchanged in position. There are stable reticulonodular opacities within the bilat eral upper lobes. There is hazy density within the medial right lung base which may reflect atelectas is. However, developing infiltrate could have this appearance as well. No pleural effusion is identif ied. The bony structures are grossly intact. IMPRESSION: 1. Hazy density within the medial right lung base which could reflect atelectasis versus developing i nfiltrate. Otherwise, unchanged appearance of the chest Reported By:
[2017-08-22 07:32] LABS: BASOPHILS # (AUTO) 0.1 X10^3/uL (0.0-0.1); BASOPHILS % (AUTO) 0.8 % (0.2-1.0); EOSINOPHILS # (AUTO) 0.3 x10^3/uL (0.0-0.2); EOSINOPHILS % (AUTO) 3.4 % (0.9-2.9); HEMATOCRIT 38.6 % (36.0-47.0); LYMPHOCYTES # (AUTO) 3.4 X10^3/uL (1.3-2.9); LYMPHOCYTES % (AUTO) 42.7 % (21.0-51.0); MEAN CORPUSCULAR HEMOGLOBIN 27.9 pg (27.0-34.0); MEAN CORPUSCULAR HGB CONC 33.6 g/dL (33.0-35.0); MEAN PLATELET VOLUME 8.4 fL (7.4-11.0); MONOCYTES # (AUTO) 0.7 x10^3/uL (0.3-0.8); MONOCYTES % (AUTO) 8.9 % (0.0-13.0); NEUTROPHILS # (AUTO) 3.5 x10^3/uL (2.2-4.8); NEUTROPHILS % (AUTO) 44.2 % (42.0-75.0); PLATELET COUNT 234 X10^3/uL (150.0-450.0); RED BLOOD COUNT 4.65 X10^6/uL (3.5-5.4); RED CELL DISTRIBUTION WIDTH 13.4 % (11.6-16.5)
[2017-08-22 07:49] LABS: ALANINE AMINOTRANSFERASE 71 Units/L (12-78); ALBUMIN 2.5 g/dL (3.4-5.0); ALKALINE PHOSPHATASE 109 Units/L (46-116); ASPARTATE AMINO TRANSFERASE 54 Units/L (15-37); BLOOD UREA NITROGEN 5 mg/dL (7-18); CALCIUM 7.6 mg/dL (8.5-10.1); CARBON DIOXIDE 24.8 mmol/L (21-32); CHLORIDE 107 mmol/L (98-107); COR CA(FOR HYPOALB) 8.8 mg/dL (8.5-10.1); CREATININE 0.75 mg/dL (0.55-1.02); SODIUM 141 mmol/L (136-145); TOTAL PROTEIN 6.6 g/dL (6.4-8.2); eGFR BLACK RACES > 60 (>60); eGFR NON BLACK RACES > 60 (>60)
[2017-08-22] MEDS: LEVAQUIN PREMIX IV 750 MG 750 MG/150 ML BAG IV SCH (08:43)
[2017-08-22] MEDS: ROBITUSSIN DM PO SCH ×4 (08:44→21:17)
[2017-08-22] MEDS: MILK OF MAGNESIA PO SCH ×2 (08:44→21:18)
[2017-08-22] MEDS: ROCEPHIN VIAL 1 GM 1 GM in NS 100 ML IV + SPIKE MINIBAG* 100 ML IV SCH (08:44)
[2017-08-22] MEDS: MEPHYTON PO SCH (08:44)
[2017-08-22] MEDS: MUCOMYST 20% 200 MG/ML NEB SCH ×2 (09:41→13:05)
--- NOTE | 2017-08-22 10:47 | PCM.PROG ---
Progress Note - Progress Note for Day of Date: 08/21/17 - Subjective Subjective: 22 FEMALE DIRECT ADMIT FROM DR MAHAJAN OFFICE ONE DAY AGO WITH RESP SYMPTOMS SUGGESTIVE OF PNEUMONIA. PT HAS CYSTIC FIRBOSIS AND HX OF CHRONIC BRONCHITIS. PT CONTINUES TO CO PRODUCTIVE COUGH AND FATIGUE. PT HAS LOWER ABD TENDERNESS ON PALPATION AND CO CONSTIPATION. SPUTUM RESULTS ON CHART. WILL CONTINUE LEVAQUIN. PT CO FATITGUE WORSE WITH PERIACTIN. - Past Medical Family Social History Past Med/Fam/Surg Hx: No changes since H&P Allergies: Allergies cashew nut Allergy (Verified 08/18/17 13:28) loracarbef [From Lorabid] Allergy (Verified 08/18/17 13:28) - Review of Systems ROS: No change since H&P - Vital Signs and I&O's Vital Signs: Temperature 96.8 F Pulse Rate [Left Brachial] 89 Pulse Rate 121 Respiratory Rate 20 Blood Pressure [Left Arm] 102/59 Blood Pressure [Right Arm] 113/73 Blood Pressure 113/73 O2 Sat by Pulse Oximetry 98 Intake and Output: Intake & Output 08/19/17 08/20/17 08/21/17 08/22/17 11:59 11:59 11:59 11:59 Intake Total 1514 1885 2544 2684 Balance 1514 1885 2544 2684 - Physical Exam Oriented: Normal Eyes: Normal Ear: Normal Nose: Normal Throat: Normal Respiratory: Diminished, Rhonchi Cardiovascular: Normal : Normal Auscultation: Bowel Sounds: Normal Tenderness: Suprapubic, Mild Skin: Normal Musculoskeletal: Normal Psychiatric: Normal Mood Description: Calm Affect: Normal Speech Pattern: Clear, Appropriate - Laboratory and Diagnostics Result Diagrams: 08/22/17 07:21 08/22/17 07:21 Labs: 08/18/17 13:14 Blood Blood Culture - Preliminary 08/18/17 13:10 Blood Blood Culture - Preliminary 08/18/17 14:03 Sputum - Expectorated Sputum Sputum Culture - Final Pseudomonas Aeruginosa 08/18/17 14:03 Sputum - Expectorated Sputum - Final Laboratory WBC 8.0 X10^3/uL (3.6-10.0) 08/22/17 07:21 RBC 4.65 X10^6/uL (3.5-5.4) 08/22/17 07:21 Hgb 13.0 g/dL (12.0-16.0) 08/22/17 07:21 Hct 38.6 % (36.0-47.0) 08/22/17 07:21 MCV 83.0 fL (80.0-100.0) 08/22/17 07:21 MCH 27.9 pg (27.0-34.0) 08/22/17 07:21 MCHC 33.6 g/dL (33.0-35.0) 08/22/17 07: RDW 13.4 % (11.6-16.5) 08/22/17 07:21 Plt Count 234 X10^3/uL (150.0-450.0) 08/22/17 07:21 MPV 8.4 fL (7.4-11.0) 08/22/17 07:21 Neut % (Auto) 44.2 % (42.0-75.0) 08/22/17 07:21 Lymph % (Auto) 42.7 % (21.0-51.0) 08/22/17 07:21 [place] % (Auto) 8.9 % (0.0-13.0) 08/22/17 07:21 Eos % (Auto) 3.4 % (0.9-2.9) H 08/22/17 07:21 Baso % (Auto) 0.8 % (0.2-1.0) 08/22/17 07:21 Neut # (Auto) 3.5 x10^3/uL (2.2-4.8) 08/22/17 07:21 Lymph # (Auto) 3.4 X10^3/uL (1.3-2.9) H 08/22/17 07:21 [place] # (Auto) 0.7 x10^3/uL (0.3-0.8) 08/22/17 07:21 Eos # (Auto) 0.3 x10^3/uL (0.0-0.2) H 08/22/17 07:21 Baso # (Auto) 0.1 X10^3/uL (0.0-0.1) 08/22/17 07:21 Absolute Nucleated RBC 0.0 /100WBC 08/22/17 07:21 Sample Site Lr 08/19/17 09:38 ABG pH 7.440 (7.35-7.45) 08/19/17 09:38 ABG pCO2 32.0 mmHg (35.0-45.0) L 08/19/17 09:38 ABG pO2 78.0 mmHg (80.0-100.0) L 08/19/17 09:38 ABG HCO3 21.7 mmol/L (22-26) L 08/19/17 09:38 ABG O2 Saturation 96.0 % (90-100) 08/19/17 09:38 ABG Base Excess -1.7 mmol/L (-2.0-2.0) 08/19/17 09:38 Momo Test Pos 08/19/17 09:38 A-a Gradient 32.0 mmHg 08/19/17 09:38 FiO2 21.000 08/19/17 09:38 Blood Gas Comments Pt greta well. cdn 08/19/17 09:38 Sodium 141 mmol/L (136-145) 08/22/17 07:21 Corrected Sodium TNP 08/22/17 07:21 Potassium 4.2 mmol/L (3.5-5.1) 08/22/17 07:21 Chloride 107 mmol/L (98-107) 08/22/17 07:21 Carbon Dioxide 24.8 mmol/L (21-32) 08/22/17 07:21 BUN 5 mg/dL (7-18) L 08/22/17 07:21 Creatinine 0.75 mg/dL (0.55-1.02) 08/22/17 07:21 Est GFR (MDRD) Af Amer > 60 (>60) 08/22/17 07:21 Est GFR (MDRD) Non-Af > 60 (>60) 08/22/17 07:21 Glucose 84 mg/dL (65-99) 08/22/17 07:21 Lactic Acid 1.9 mmol/L (0.4-2.0) 08/20/17 06:04 Calcium 7.6 mg/dL (8.5-10.1) L 08/22/17 07:21 Corrected Calcium 8.8 mg/dL (8.5-10.1) 08/22/17 07:21 Total Bilirubin 0.80 mg/dL (0.2-1.0) 05/20/18 07:21 AST 54 Units/L (15-37) H 08/22/17 07:21 ALT 71 Units/L (12-78) 08/22/17 07:21 Alkaline Phosphatase 109 Units/L (46-116) 08/22/17 07:21 Total Protein 6.6 g/dL (6.4-8.2) 08/22/17 07:21 Albumin 2.5 g/dL (3.4-5.0) L 08/22/17 07:21 Globulin 4.1 g/dL (2.5-4.5) 08/22/17 07:21 Albumin/Globulin Ratio 0.6 Ratio (1.1-2.1) L 08/22/17 07:21 Specimen Type Clean catch urine 08/19/17 09:06 Urine Color Yellow (YELLOW) 08/19/17 09:06 Urine Appearance Slightly hazy (CLEAR) 08/19/17 09:06 Urine pH 6.0 (5.0 - 8.0) 08/19/17 09:06 Ur Specific [place] 1.010 (1.000-1.030) 08/19/17 09:06 Urine Protein Negative (NEGATIVE) 08/19/17 09:06 Urine Glucose (UA) Negative (NEGATIVE) 08/19/17 09:06 Urine Ketones Negative (NEGATIVE) 08/19/17 09:06 Urine Occult Blood Negative (NEGATIVE) 08/19/17 09:06 Urine Nitrite Negative (NEGATIVE) 08/19/17 09:06 Urine Bilirubin Negative (NEGATIVE) 08/19/17 09:06 Urine Urobilinogen Normal (NORMAL) 08/19/17 09:06 Ur Leukocyte Esterase Negative (NEGATIVE) 08/19/17 09:06 Rheumatoid Factor Negative (NEGATIVE) 08/20/17 06:04 - Plan (1) Chronic bronchitis with acute exacerbation Status: Acute Plan: CXR, Nebs, CPT, Antibiotics. MUCOMYST, BUDESONIDE (2) Cystic fibrosis Status: Acute Plan: CXR, Nebs, CPT, Antibiotics (3) Abdominal pain Status: Acute Plan: UA, KUB (4) Pseudomonas aeruginosa infection Status: Acute Plan: IV LEVAQUIN, RESP THERAPY
--- NOTE | 2017-08-22 10:49 | CT ---
HISTORY: Abnormal chest x-ray Study: CT chest without contrast Comparison: Chest radiograph performed on 08/22/2017 Technique: Multiple axial images of the thorax were obtained beginning just above the thoracic inlet and extendi ng to the level of the upper abdomen. Reformatted coronal and sagittal planes were produced as well. Findings: Imaging of the chest demonstrates multiple reticulonodular opacities and centrilobular nodularity thr oughout the bilateral upper lobes along with mild bronchiectasis and bronchial wall thickening. Multi ple tree-in-bud opacities are identified as well. There is also mild bronchiectasis within the right middle lobe and bilateral lower lobes. These findings are consistent with patient's history of cystic fibrosis. Within the right lung base there is focal consolidation which most likely reflects subsegm ental atelectasis given the somewhat linear configuration of the atelectasis. There is very mild subs egmental atelectasis within the left lung base as well. However, within the superior segment of the l eft lower lobe there are patchy ground-glass opacities with early consolidation and surrounding retic ular nodularity, concerning for superimposed pneumonia. There is no pleural effusion. No mediastinal or hilar lymphadenopathy is identified. The heart is nonenlarged. There is no pericardial effusion. T he central venous catheters present, the distal tip terminating within the right ventricle. Evaluatio n of the upper abdomen demonstrates diffuse low attenuation throughout the liver, consistent with hep atic steatosis. The liver is also enlarged in size. There is diffuse fatty atrophy of the pancreas. T hese findings are consistent with patient's history of cystic fibrosis as well. The bony thorax is gr ossly intact. IMPRESSION: 1. Findings concerning for pneumonia within the superior segment of the left lower lobe as described above. 2. Pulmonary and abdominal findings of cystic fibrosis as detailed above. Reported By:
--- NOTE | 2017-08-22 10:50 | PCM.PROG ---
Progress Note - Progress Note for Day of Date: 08/22/17 - Subjective Subjective: 22 FEMALE DIRECT ADMIT FROM DR MAHAJAN OFFICE ONE DAY AGO WITH RESP SYMPTOMS SUGGESTIVE OF PNEUMONIA. PT HAS CYSTIC FIRBOSIS AND HX OF CHRONIC BRONCHITIS. PT CONTINUES TO CO PRODUCTIVE COUGH AND FATIGUE. PT HAS LOWER ABD TENDERNESS ON PALPATION AND CO CONSTIPATION. SPUTUM RESULTS ON CHART. WILL CONTINUE LEVAQUIN. CO NAUSEA AND POOR APPETITE, WILL START PEPCID BID IV, D/C PERIACTIN, CONTINUE RESP THERAPY, ENCOURAGE PT TO AMBULATE, CT CHEST W/O CONTRAST TO R/O NEW INFILTRATE, SEE CXR. ENCOURAGE ORAL HYDRATION - Past Medical Family Social History Past Med/Fam/Surg Hx: No changes since H&P Allergies: Allergies cashew nut Allergy (Verified 08/18/17 13:28) loracarbef [From Lorabid] Allergy (Verified 08/18/17 13:28) - Review of Systems ROS: No change since H&P - Vital Signs and I&O's Vital Signs: Temperature 96.8 F Pulse Rate [Left Brachial] 89 Pulse Rate 121 Respiratory Rate 20 Blood Pressure [Left Arm] 102/59 Blood Pressure [Right Arm] 113/73 Blood Pressure 113/73 O2 Sat by Pulse Oximetry 98 Intake and Output: Intake & Output 08/19/17 08/20/17 08/21/17 08/22/17 11:59 11:59 11:59 11:59 Intake Total 1514 1885 2544 2684 Balance 1514 1885 2544 2684 - Physical Exam Oriented: Normal Eyes: Normal Ear: Normal Nose: Normal Throat: Normal Respiratory: Rhonchi Cardiovascular: Normal : Normal Auscultation: Bowel Sounds: Normal Tenderness: Suprapubic, Mild Skin: Normal Musculoskeletal: Normal Psychiatric: Normal Mood Description: Calm Affect: Normal Speech Pattern: Clear, Appropriate - Laboratory and Diagnostics Result Diagrams: 08/22/17 07:21 08/22/17 07:21 Labs: 08/18/17 13:14 Blood Blood Culture - Preliminary 08/18/17 13:10 Blood Blood Culture - Preliminary 08/18/17 14:03 Sputum - Expectorated Sputum Sputum Culture - Final Pseudomonas Aeruginosa 08/18/17 14:03 Sputum - Expectorated Sputum - Final Laboratory WBC 8.0 X10^3/uL (3.6-10.0) 08/22/17 07:21 RBC 4.65 X10^6/uL (3.5-5.4) 08/22/17 07:21 Hgb 13.0 g/dL (12.0-16.0) 08/22/17 07:21 Hct 38.6 % (36.0-47.0) 08/22/17 07:21 MCV 83.0 fL (80.0-100.0) 08/22/17 07:21 MCH 27.9 pg (27.0-34.0) 08/22/17 07:21 MCHC 33.6 g/dL (33.0-35.0) 08/22/17 07:21 RDW 13.4 % (11.6-16.5) 08/22/17 07:21 Plt Count 234 X10^3/uL (150.0-450.0) 08/22/17 07:21 MPV 8.4 fL (7.4-11.0) 08/22/17 07:21 Neut % (Auto) 44.2 % (42.0-75.0) 08/22/17 07:21 Lymph % (Auto) 42.7 % (21.0-51.0) 08/22/17 07:21 [place] % (Auto) 8.9 % (0.0-13.0) 08/22/17 07:21 Eos % (Auto) 3.4 % (0.9-2.9) H 08/22/17 07:21 Baso % (Auto) 0.8 % (0.2-1.0) 08/22/17 07:21 Neut # (Auto) 3.5 x10^3/uL (2.2-4.8) 08/22/17 07:21 Lymph # (Auto) 3.4 X10^3/uL (1.3-2.9) H 08/22/17 07:21 [place] # (Auto) 0.7 x10^3/uL (0.3-0.8) 08/22/17 07:21 Eos # (Auto) 0.3 x10^3/uL (0.0-0.2) H 08/22/17 07:21 Baso # (Auto) 0.1 X10^3/uL (0.0-0.1) 08/22/17 07:21 Absolute Nucleated RBC 0.0 /100WBC 08/22/17 07:21 Sample Site Lr 08/19/17 09:38 ABG pH 7.440 (7.35-7.45) 08/19/17 09:38 ABG pCO2 32.0 mmHg (35.0-45.0) L 08/19/17 09:38 ABG pO2 78.0 mmHg (80.0-100.0) L 08/19/17 09:38 ABG HCO3 21.7 mmol/L (22-26) L 08/19/17 09:38 ABG O2 Saturation 96.0 % (90-100) 08/19/17 09:38 ABG Base Excess -1.7 mmol/L (-2.0-2.0) 08/19/17 09:38 Momo Test Pos 08/19/17 09:38 A-a Gradient 32.0 mmHg 08/19/17 09:38 FiO2 21.000 08/19/17 09:38 Blood Gas Comments Pt greta well. cdn 08/19/17 09:38 Sodium 141 mmol/L (136-145) 08/22/17 07:21 Corrected Sodium TNP 08/22/17 07:21 Potassium 4.2 mmol/L (3.5-5.1) 08/22/17 07:21 Chloride 107 mmol/L (98-107) 08/22/17 07:21 Carbon Dioxide 24.8 mmol/L (21-32) 08/22/17 07:21 BUN 5 mg/dL (7-18) L 08/22/17 07:21 Creatinine 0.75 mg/dL (0.55-1.02) 08/22/17 07:21 Est GFR (MDRD) Af Amer > 60 (>60) 08/22/17 07:21 Est GFR (MDRD) Non-Af > 60 (>60) 08/22/17 07:21 Glucose 84 mg/dL (65-99) 08/22/17 07:21 Lactic Acid 1.9 mmol/L (0.4-2.0) 08/20/17 06:04 Calcium 7.6 mg/dL (8.5-10.1) L 08/22/17 07:21 Corrected Calcium 8.8 mg/dL (8.5-10.1) 08/22/17 07:21 Total Bilirubin 0.80 mg/dL (0.2-1.0) 08/22/17 07:21 AST 54 Units/L (15-37) H 08/22/17 07:21 ALT 71 Units/L (12-78) 08/22/17 07:21 Alkaline Phosphatase 109 Units/L (46-116) 08/22/17 07:21 Total Protein 6.6 g/dL (6.4-8.2) 08/22/17 07:21 Albumin 2.5 g/dL (3.4-5.0) L 08/22/17 07:21 Globulin 4.1 g/dL (2.5-4.5) 08/22/17 07:21 Albumin/Globulin Ratio 0.6 Ratio (1.1-2.1) L 08/22/17 07:21 Specimen Type Clean catch urine 08/19/17 09:06 Urine Color Yellow (YELLOW) 08/19/17 09:06 Urine Appearance Slightly hazy (CLEAR) 08/19/17 09:06 Urine pH 6.0 (5.0 - 8.0) 08/19/17 09:06 Ur Specific [place] 1.010 (1.000-1.030) 08/19/17 09:06 Urine Protein Negative (NEGATIVE) 08/19/17 09:06 Urine Glucose (UA) Negative (NEGATIVE) 08/19/17 09:06 Urine Ketones Negative (NEGATIVE) 08/19/17 09:06 Urine Occult Blood Negative (NEGATIVE) 08/19/17 09:06 Urine Nitrite Negative (NEGATIVE) 08/19/17 09:06 Urine Bilirubin Negative (NEGATIVE) 08/19/17 09:06 Urine Urobilinogen Normal (NORMAL) 08/19/17 09:06 Ur Leukocyte Esterase Negative (NEGATIVE) 08/19/17 09:06 Rheumatoid Factor Negative (NEGATIVE) 08/20/17 06:04 - Plan (1) Chronic bronchitis with acute exacerbation Status: Acute Plan: CXR, Nebs, CPT, Antibiotics. MUCOMYST, BUDESONIDE. REPEAT SOLU MEDROL 40MG IV X 3 DOSE Q 8HRS. D/C PERIACTIN, PEPCID 20 IV. AMBULATE PT (2) Cystic fibrosis Status: Acute Plan: CXR, Nebs, CPT, Antibiotics (3) Abdominal pain Status: Acute Plan: UA, KUB (4) Pseudomonas aeruginosa infection Status: Acute Plan: IV LEVAQUIN, RESP THERAPY
[2017-08-22] MEDS: MIRALAX POWDER (1 DOSE 17GM) PO SCH ×2 (11:14→21:19)
[2017-08-22] MEDS: NORCO 7.5/325 MG TAB PO PRN (11:43)
[2017-08-22] MEDS: PULMICORT NEB TX 0.5 MG NEB SCH ×2 (13:05→23:01)
[2017-08-22] MEDS: SOLU-Medrol 40 MG VIAL IVP SCH ×2 (13:21→21:26)
[2017-08-22] MEDS ORDERED: SOLU-Medrol 40 MG VIAL IVP SCH (14:00)
[2017-08-22] MEDS: COLACE CAP 100 MG PO SCH (21:18)
[2017-08-23] MEDS: DUONEB 0.5 MG/3 MG NEB SCH ×4 (00:50→17:40)
[2017-08-23] MEDS: NORCO 7.5/325 MG TAB PO PRN ×2 (05:00→21:12)
[2017-08-23] MEDS: NS 1/2 1000 ML IV 1,000 ML IV SCH ×4 (05:01→18:32)
[2017-08-23] MEDS: CREON PO SCH ×3 (05:36→21:05)
[2017-08-23] MEDS: SOLU-Medrol 40 MG VIAL IVP SCH ×3 (05:36→21:05)
[2017-08-23 06:15] LABS: BASOPHILS % (AUTO) 0.3 % (0.2-1.0); HEMATOCRIT 37.4 % (36.0-47.0); HEMOGLOBIN 12.7 g/dL (12.0-16.0); LYMPHOCYTES % (AUTO) 16.1 % (21.0-51.0); MEAN CORPUSCULAR HEMOGLOBIN 27.8 pg (27.0-34.0); MEAN CORPUSCULAR HGB CONC 33.9 g/dL (33.0-35.0); MEAN CORPUSCULAR VOLUME 82.1 fL (80.0-100.0); MONOCYTES # (AUTO) 0.6 x10^3/uL (0.3-0.8); MONOCYTES % (AUTO) 4.7 % (0.0-13.0); NEUTROPHILS % (AUTO) 78.9 % (42.0-75.0); PLATELET COUNT 245 X10^3/uL (150.0-450.0); RED BLOOD COUNT 4.56 X10^6/uL (3.5-5.4); RED CELL DISTRIBUTION WIDTH 13.2 % (11.6-16.5); WHITE BLOOD COUNT 12.7 X10^3/uL (3.6-10.0)
[2017-08-23 06:19] LABS: ALANINE AMINOTRANSFERASE 94 Units/L (12-78); ALBUMIN 2.7 g/dL (3.4-5.0); ALKALINE PHOSPHATASE 121 Units/L (46-116); ASPARTATE AMINO TRANSFERASE 87 Units/L (15-37); BLOOD UREA NITROGEN 6 mg/dL (7-18); CHLORIDE 107 mmol/L (98-107); COR NA(FOR HYPERGLY) 141 mmol/L (136-145); CREATININE 0.62 mg/dL (0.55-1.02); SODIUM 139 mmol/L (136-145); eGFR BLACK RACES > 60 (>60); eGFR NON BLACK RACES > 60 (>60)
[2017-08-23 06:43] LABS: ANTI-NUCLEAR ANTIBODY TEST None Detected (None Detected)
[2017-08-23] MEDS: LEVAQUIN PREMIX IV 750 MG 750 MG/150 ML BAG IV SCH (08:29)
[2017-08-23] MEDS: MILK OF MAGNESIA PO SCH ×3 (08:29→21:13)
[2017-08-23] MEDS: MEPHYTON PO SCH (08:29)
[2017-08-23] MEDS: ROBITUSSIN DM PO SCH ×5 (08:30→21:04)
[2017-08-23] MEDS: ROCEPHIN VIAL 1 GM 1 GM in NS 100 ML IV + SPIKE MINIBAG* 100 ML IV SCH (08:30)
[2017-08-23] MEDS ORDERED: PEPCID 20 MG IV PREMIX* 20 MG/50 ML BAG IV SCH (09:00)
[2017-08-23] MEDS: PULMICORT NEB TX 0.5 MG NEB SCH (12:00)
[2017-08-23] MEDS ORDERED: NS 1/2 1000 ML IV 1,000 ML IV ONE (16:13)
--- NOTE | 2017-08-23 18:04 | PCM.PROG ---
Progress Note - Progress Note for Day of Date: 08/23/17 - Subjective Subjective: 22 FEMALE DIRECT ADMIT FROM DR MAHAJAN OFFICE ONE DAY AGO WITH RESP SYMPTOMS SUGGESTIVE OF PNEUMONIA. PT HAS CYSTIC FIRBOSIS AND HX OF CHRONIC BRONCHITIS. PT CONTINUES TO CO PRODUCTIVE COUGH AND FATIGUE. PT HAS LOWER ABD TENDERNESS ON PALPATION AND CO CONSTIPATION. SPUTUM RESULTS ON CHART. WILL CONTINUE LEVAQUIN. CT CHEST ONE DAY AGO WITH FINDINGS CONSITENT WITH PNEUMONIA, WILL CONTINUE RESP CARE. PT STATES IMPROVING ENERGY TODAY. ENCOURAGE ORAL HYDRATION - Past Medical Family Social History Past Med/Fam/Surg Hx: No changes since H&P Allergies: Allergies cashew nut Allergy (Verified 08/18/17 13:28) loracarbef [From Lorabid] Allergy (Verified 08/18/17 13:28) - Review of Systems ROS: No change since H&P - Vital Signs and I&O's Vital Signs: Temperature 98.6 F Pulse Rate [Left Brachial] 92 Pulse Rate 108 Respiratory Rate 20 Blood Pressure [Left Arm] 99/58 Blood Pressure [Right Arm] 113/73 Blood Pressure 113/73 O2 Sat by Pulse Oximetry 94 Intake and Output: Intake & Output 08/21/17 08/22/17 08/23/17 08/24/17 11:59 11:59 11:59 11:59 Intake Total 2544 2684 1950 1080 Balance 2544 2684 1950 1080 - Physical Exam Oriented: Normal Eyes: Normal Ear: Normal Nose: Normal Throat: Normal Respiratory: Rhonchi Cardiovascular: Normal : Normal Auscultation: Bowel Sounds: Normal Tenderness: Suprapubic, Mild Skin: Normal Musculoskeletal: Normal Psychiatric: Normal Mood Description: Calm Affect: Normal Speech Pattern: Clear, Appropriate - Laboratory and Diagnostics Result Diagrams: 08/23/17 04:45 08/23/17 04:45 Labs: 08/18/17 13:14 Blood Blood Culture - Final 08/18/17 13:10 Blood Blood Culture - Final 08/18/17 14:03 Sputum - Expectorated Sputum Sputum Culture - Final Pseudomonas Aeruginosa 08/18/17 14:03 Sputum - Expectorated Sputum - Final Laboratory WBC 12.7 X10^3/uL (3.6-10.0) H 08/23/17 04:45 RBC 4.56 X10^6/uL (3.5-5.4) 08/23/17 04:45 Hgb 12.7 g/dL (12.0-16.0) 08/23/17 04:45 Hct 37.4 % (36.0-47.0) 08/23/17 04:45 MCV 82.1 fL (80.0-100.0) 08/23/17 04:45 MCH 27.8 pg (27.0-34.0) 08/23/17 04:45 MCHC 33.9 g/dL (33.0-35.0) 08/23/17 04:45 RDW 13.2 % (11.6-16.5) 08/23/17 04:45 Plt Count 245 X10^3/uL (150.0-450.0) 08/23/17 04:45 MPV 9.0 fL (7.4-11.0) 08/23/17 04:45 Neut % (Auto) 78.9 % (42.0-75.0) H 08/23/17 04:45 Lymph % (Auto) 16.1 % (21.0-51.0) L 08/23/17 04:45 [place] % (Auto) 4.7 % (0.0-13.0) 08/23/17 04:45 Eos % (Auto) 0.0 % (0.9-2.9) L 08/23/17 04:45 Baso % (Auto) 0.3 % (0.2-1.0) 08/23/17 04:45 Neut # (Auto) 10.0 x10^3/uL (2.2-4.8) H 08/23/17 04:45 Lymph # (Auto) 2.0 X10^3/uL (1.3-2.9) 08/23/17 04:45 [place] # (Auto) 0.6 x10^3/uL (0.3-0.8) 08/23/17 04:45 Eos # (Auto) 0.0 x10^3/uL (0.0-0.2) 08/23/17 04:45 Baso # (Auto) 0.0 X10^3/uL (0.0-0.1) 08/23/17 04:45 Absolute Nucleated RBC 0.1 /100WBC 08/23/17 04:45 Sample Site Lr 08/19/17 09:38 ABG pH 7.440 (7.35-7.45) 08/19/17 09:38 ABG pCO2 32.0 mmHg (35.0-45.0) L 08/19/17 09:38 ABG pO2 78.0 mmHg (80.0-100.0) L 08/19/17 09:38 ABG HCO3 21.7 mmol/L (22-26) L 08/19/17 09:38 ABG O2 Saturation 96.0 % (90-100) 08/19/17 09:38 ABG Base Excess -1.7 mmol/L (-2.0-2.0) 08/19/17 09:38 Momo Test Pos 08/19/17 09:38 A-a Gradient 32.0 mmHg 08/19/17 09:38 FiO2 21.000 08/19/17 09:38 Blood Gas Comments Pt greta well. cdn 08/19/17 09:38 Sodium 139 mmol/L (136-145) 08/23/17 04:45 Corrected Sodium 141 mmol/L (136-145) 08/23/17 04:45 Potassium 4.5 mmol/L (3.5-5.1) 08/23/17 04:45 Chloride 107 mmol/L (98-107) 08/23/17 04:45 Carbon Dioxide 24.0 mmol/L (21-32) 08/23/17 04:45 BUN 6 mg/dL (7-18) L 08/23/17 04:45 Creatinine 0.62 mg/dL (0.55-1.02) 08/23/17 04:45 Est GFR (MDRD) Af Amer > 60 (>60) 08/23/17 04:45 Est GFR (MDRD) Non-Af > 60 (>60) 08/23/17 04:45 Glucose 187 mg/dL (65-99) H 08/23/17 04:45 Lactic Acid 1.9 mmol/L (0.4-2.0) 08/20/17 06:04 Calcium 8.0 mg/dL (8.5-10.1) L 08/23/17 04:45 Corrected Calcium 9.0 mg/dL (8.5-10.1) 08/23/17 04:45 Total Bilirubin 0.50 mg/dL (0.2-1.0) 08/23/17 04:45 AST 87 Units/L (15-37) H 08/23/17 04:45 ALT 94 Units/L (12-78) H 08/23/17 04:45 Alkaline Phosphatase 121 Units/L (46-116) H 08/23/17 04:45 Total Protein 7.0 g/dL (6.4-8.2) 08/23/17 04:45 Albumin 2.7 g/dL (3.4-5.0) L 08/23/17 04:45 Globulin 4.3 g/dL (2.5-4.5) 08/23/17 04:45 Albumin/Globulin Ratio 0.6 Ratio (1.1-2.1) L 08/23/17 04:45 Specimen Type Clean catch urine 08/19/17 09:06 Urine Color Yellow (YELLOW) 08/19/17 09:06 Urine Appearance Slightly hazy (CLEAR) 08/19/17 09:06 Urine pH 6.0 (5.0 - 8.0) 08/19/17 09:06 Ur Specific [place] 1.010 (1.000-1.030) 08/19/17 09:06 Urine Protein Negative (NEGATIVE) 08/19/17 09:06 Urine Glucose (UA) Negative (NEGATIVE) 08/19/17 09:06 Urine Ketones Negative (NEGATIVE) 08/19/17 09:06 Urine Occult Blood Negative (NEGATIVE) 08/19/17 09:06 Urine Nitrite Negative (NEGATIVE) 08/19/17 09:06 Urine Bilirubin Negative (NEGATIVE) 08/19/17 09:06 Urine Urobilinogen Normal (NORMAL) 08/19/17 09:06 Ur Leukocyte Esterase Negative (NEGATIVE) 08/19/17 09:06 Rheumatoid Factor Negative (NEGATIVE) 08/20/17 06:04 DELMER Screen None detected (None Detected) 08/20/17 06:04 DELMER Titer TNP 08/20/17 06:04 DELMER Pattern TNP 08/20/17 06:04 - Plan (1) Chronic bronchitis with acute exacerbation Status: Acute Plan: CXR, Nebs, CPT, Antibiotics. MUCOMYST, BUDESONIDE, IV LEVAQUIN. PEPCID 20 IV. AMBULATE PT (2) Cystic fibrosis Status: Acute Plan: CXR, Nebs, CPT, Antibiotics (3) Abdominal pain Status: Acute Plan: IMPROVED, RELIEVED CONSTIPATION (4) Pseudomonas aeruginosa infection Status: Acute Plan: IV LEVAQUIN, RESP THERAPY
[2017-08-23] MEDS: PEPCID 20 MG IV PREMIX* 20 MG/50 ML BAG IV SCH (21:05)
[2017-08-23] MEDS: COLACE CAP 100 MG PO SCH (21:06)
[2017-08-23] MEDS: MIRALAX POWDER (1 DOSE 17GM) PO SCH (21:13)
[2017-08-24] MEDS: DUONEB 0.5 MG/3 MG NEB SCH ×4 (00:54→17:00)
[2017-08-24] MEDS: PULMICORT NEB TX 0.5 MG NEB SCH ×3 (01:04→21:24)
[2017-08-24] MEDS ORDERED: NS 1/2 1000 ML IV 1,000 ML IV ONE ×2 (01:44→19:36)
[2017-08-24 06:00] LABS: ALANINE AMINOTRANSFERASE 89 Units/L (12-78); ALBUMIN 2.5 g/dL (3.4-5.0); ALKALINE PHOSPHATASE 109 Units/L (46-116); ASPARTATE AMINO TRANSFERASE 57 Units/L (15-37); BLOOD UREA NITROGEN 5 mg/dL (7-18); CALCIUM 7.6 mg/dL (8.5-10.1); CARBON DIOXIDE 22.7 mmol/L (21-32); CHLORIDE 105 mmol/L (98-107); COR CA(FOR HYPOALB) 8.8 mg/dL (8.5-10.1); COR NA(FOR HYPERGLY) 143 mmol/L (136-145); CREATININE 0.79 mg/dL (0.55-1.02); SODIUM 136 mmol/L (136-145); TOTAL PROTEIN 6.5 g/dL (6.4-8.2); eGFR BLACK RACES > 60 (>60); eGFR NON BLACK RACES > 60 (>60)
[2017-08-24] MEDS: CREON PO SCH ×3 (06:08→22:21)
[2017-08-24] MEDS: SOLU-Medrol 40 MG VIAL IVP SCH (06:08)
[2017-08-24 06:15] LABS: BASOPHILS # (AUTO) 0.1 X10^3/uL (0.0-0.1); BASOPHILS % (AUTO) 0.3 % (0.2-1.0); HEMATOCRIT 35.7 % (36.0-47.0); HEMOGLOBIN 11.8 g/dL (12.0-16.0); LYMPHOCYTES # (AUTO) 2.2 X10^3/uL (1.3-2.9); LYMPHOCYTES % (AUTO) 13.9 % (21.0-51.0); MEAN CORPUSCULAR HEMOGLOBIN 27.8 pg (27.0-34.0); MEAN CORPUSCULAR HGB CONC 33.2 g/dL (33.0-35.0); MEAN CORPUSCULAR VOLUME 83.7 fL (80.0-100.0); MONOCYTES # (AUTO) 0.9 x10^3/uL (0.3-0.8); MONOCYTES % (AUTO) 5.6 % (0.0-13.0); NEUTROPHILS # (AUTO) 12.7 x10^3/uL (2.2-4.8); NEUTROPHILS % (AUTO) 80.2 % (42.0-75.0); PLATELET COUNT 207 X10^3/uL (150.0-450.0); RED BLOOD COUNT 4.26 X10^6/uL (3.5-5.4); WHITE BLOOD COUNT 15.8 X10^3/uL (3.6-10.0)
[2017-08-24] MEDS: ROBITUSSIN DM PO SCH ×4 (09:02→20:35)
[2017-08-24] MEDS: PEPCID 20 MG IV PREMIX* 20 MG/50 ML BAG IV SCH (09:02)
[2017-08-24] MEDS: MILK OF MAGNESIA PO SCH ×2 (09:02→20:35)
[2017-08-24] MEDS: MEPHYTON PO SCH (09:04)
[2017-08-24] MEDS: ROCEPHIN VIAL 1 GM 1 GM in NS 100 ML IV + SPIKE MINIBAG* 100 ML IV SCH (09:44)
[2017-08-24] MEDS: LEVAQUIN PREMIX IV 750 MG 750 MG/150 ML BAG IV SCH (11:00)
--- NOTE | 2017-08-24 11:00 | RAD ---
Chest, two views Indication: Pneumonia, chest tightness Comparison: 08/22/2017 Findings: The heart is normal in size. Upper lobe predominant reticular nodular opacities again noted and grossly unchanged. No definite new focal infiltrates are identified. There is no significant ple ural effusion. Right-sided PICC is stable/satisfactory in position without pneumothorax. There is no acute osseous abnormality. Impression: Grossly stable upper lobe predominant reticular nodular opacities, compatible with chronic changes of cystic fibrosis. Superimposed pneumonia is difficult to exclude and correlation is recommended. Reported By:
--- NOTE | 2017-08-24 13:56 | PCM.PROG ---
Progress Note - Progress Note for Day of Date: 08/24/17 - Subjective Subjective: 22 FEMALE DIRECT ADMIT FROM DR MAHAJAN OFFICE ONE DAY AGO WITH RESP SYMPTOMS SUGGESTIVE OF PNEUMONIA. PT HAS CYSTIC FIRBOSIS AND HX OF CHRONIC BRONCHITIS. PT CONTINUES TO CO PRODUCTIVE COUGH AND FATIGUE. PT HAS LOWER ABD TENDERNESS ON PALPATION AND CO CONSTIPATION. SPUTUM RESULTS ON CHART. WILL CONTINUE LEVAQUIN. PT WILL HAVE REPEAT CXR THIS AM. PT HAS RECEIVED IV SOLU MEDROL WITH INCREASED IMPROVEMENT OF WHEEZING AND IMPROVED APPETITE. PT GLUCOSE ELEVATED DUE TO STEROIDS. PT ENCOURAGED TO INCREASE PO WATER INAKE, GLUCOSE MONITORING, DISCUSSED POSSIBLE DC HOME TOMORROW - Past Medical Family Social History Past Med/Fam/Surg Hx: No changes since H&P Allergies: Allergies cashew nut Allergy (Verified 08/18/17 13:28) loracarbef [From Lorabid] Allergy (Verified 08/18/17 13:28) - Review of Systems ROS: No change since H&P - Vital Signs and I&O's Vital Signs: Temperature 97.9 F Pulse Rate [Left Brachial] 81 Pulse Rate 76 Respiratory Rate 20 Blood Pressure [Left Arm] 100/57 Blood Pressure [Right Arm] 113/73 Blood Pressure 113/73 O2 Sat by Pulse Oximetry 94 Intake and Output: Intake & Output 08/22/17 08/23/17 08/24/17 08/25/17 11:59 11:59 11:59 11:59 Intake Total 2684 1950 3095 Balance 2684 1950 3095 - Physical Exam Oriented: Normal Eyes: Normal Ear: Normal Nose: Normal Throat: Normal Respiratory: Rhonchi Cardiovascular: Normal : Normal Auscultation: Bowel Sounds: Normal Tenderness: Suprapubic, Mild Skin: Normal Musculoskeletal: Normal Psychiatric: Normal Mood Description: Calm Affect: Normal Speech Pattern: Clear, Appropriate - Laboratory and Diagnostics Result Diagrams: 08/24/17 04:40 08/24/17 04:40 Labs: 08/18/17 13:14 Blood Blood Culture - Final 08/18/17 13:10 Blood Blood Culture - Final 08/18/17 14:03 Sputum - Expectorated Sputum Sputum Culture - Final Pseudomonas Aeruginosa 08/18/17 14:03 Sputum - Expectorated Sputum - Final Laboratory WBC 15.8 X10^3/uL (3.6-10.0) H 08/24/17 04:40 RBC 4.26 X10^6/uL (3.5-5.4) 08/24/17 04:40 Hgb 11.8 g/dL (12.0-16.0) L 08/24/17 04:40 Hct 35.7 % (36.0-47.0) L 08/24/17 04:40 MCV 83.7 fL (80.0-100.0) 08/24/17 04:40 MCH 27.8 pg (27.0-34.0) 08/24/17 04:40 MCHC 33.2 g/dL (33.0-35.0) 08/24/17 04:40 RDW 13.0 % (11.6-16.5) 08/24/17 04:40 Plt Count 207 X10^3/uL (150.0-450.0) 08/24/17 04:40 MPV 9.0 fL (7.4-11.0) 08/24/17 04:40 Neut % (Auto) 80.2 % (42.0-75.0) H 08/24/17 04:40 Lymph % (Auto) 13.9 % (21.0-51.0) L 08/24/17 04:40 [place] % (Auto) 5.6 % (0.0-13.0) 08/24/17 04:40 Eos % (Auto) 0.0 % (0.9-2.9) L 08/24/17 04:40 Baso % (Auto) 0.3 % (0.2-1.0) 08/24/17 04:40 Neut # (Auto) 12.7 x10^3/uL (2.2-4.8) H 08/24/17 04:40 Lymph # (Auto) 2.2 X10^3/uL (1.3-2.9) 08/24/17 04:40 Love # (Auto) 0.9 x10^3/uL (0.3-0.8) H 08/24/17 04:40 Eos # (Auto) 0.0 x10^3/uL (0.0-0.2) 08/24/17 04:40 Baso # (Auto) 0.1 X10^3/uL (0.0-0.1) 08/24/17 04:40 Absolute Nucleated RBC 0.0 /100WBC 08/24/17 04:40 Sample Site Lr 08/19/17 09:38 ABG pH 7.440 (7.35-7.45) 08/19/17 09:38 ABG pCO2 32.0 mmHg (35.0-45.0) L 08/19/17 09:38 ABG pO2 78.0 mmHg (80.0-100.0) L 08/19/17 09:38 ABG HCO3 21.7 mmol/L (22-26) L 08/19/17 09:38 ABG O2 Saturation 96.0 % (90-100) 08/19/17 09:38 ABG Base Excess -1.7 mmol/L (-2.0-2.0) 08/19/17 09:38 Momo Test Pos 08/19/17 09:38 A-a Gradient 32.0 mmHg 08/19/17 09:38 FiO2 21.000 08/19/17 09:38 Blood Gas Comments Pt greta well. cdn 08/19/17 09:38 Sodium 136 mmol/L (136-145) 08/24/17 04:40 Corrected Sodium 143 mmol/L (136-145) 08/24/17 04:40 Potassium 3.9 mmol/L (3.5-5.1) 08/24/17 04:40 Chloride 105 mmol/L (98-107) 08/24/17 04:40 Carbon Dioxide 22.7 mmol/L (21-32) 08/24/17 04:40 BUN 5 mg/dL (7-18) L 08/24/17 04:40 Creatinine 0.79 mg/dL (0.55-1.02) 08/24/17 04:40 Est GFR (MDRD) Af Amer > 60 (>60) 08/24/17 04:40 Est GFR (MDRD) Non-Af > 60 (>60) 08/24/17 04:40 Glucose 390 mg/dL (65-99) H 08/24/17 04:40 Lactic Acid 1.9 mmol/L (0.4-2.0) 08/20/17 06:04 Calcium 7.6 mg/dL (8.5-10.1) L 08/24/17 04:40 Corrected Calcium 8.8 mg/dL (8.5-10.1) 08/24/17 04:40 Total Bilirubin 0.40 mg/dL (0.2-1.0) 08/24/17 04:40 AST 57 Units/L (15-37) H 08/24/17 04:40 ALT 89 Units/L (12-78) H 08/24/17 04:40 Alkaline Phosphatase 109 Units/L (46-116) 08/24/17 04:40 Total Protein 6.5 g/dL (6.4-8.2) 08/24/17 04:40 Albumin 2.5 g/dL (3.4-5.0) L 08/24/17 04:40 Globulin 4.0 g/dL (2.5-4.5) 08/24/17 04:40 Albumin/Globulin Ratio 0.6 Ratio (1.1-2.1) L 08/24/17 04:40 Specimen Type Clean catch urine 08/19/17 09:06 Urine Color Yellow (YELLOW) 08/19/17 09:06 Urine Appearance Slightly hazy (CLEAR) 08/19/17 09:06 Urine pH 6.0 (5.0 - 8.0) 08/19/17 09:06 Ur Specific [place] 1.010 (1.000-1.030) 08/19/17 09:06 Urine Protein Negative (NEGATIVE) 08/19/17 09:06 Urine Glucose (UA) Negative (NEGATIVE) 08/19/17 09:06 Urine Ketones Negative (NEGATIVE) 08/19/17 09:06 Urine Occult Blood Negative (NEGATIVE) 08/19/17 09:06 Urine Nitrite Negative (NEGATIVE) 08/19/17 09:06 Urine Bilirubin Negative (NEGATIVE) 08/19/17 09:06 Urine Urobilinogen Normal (NORMAL) 08/19/17 09:06 Ur Leukocyte Esterase Negative (NEGATIVE) 08/19/17 09:06 Rheumatoid Factor Negative (NEGATIVE) 08/20/17 06:04 DELMER Screen None detected (None Detected) 08/20/17 06:04 DELMER Titer TNP 08/20/17 06:04 DELMER Pattern TNP 08/20/17 06:04 - Plan (1) Chronic bronchitis with acute exacerbation Status: Acute Plan: CXR, Nebs, CPT, Antibiotics. MUCOMYST, BUDESONIDE, IV LEVAQUIN. PEPCID 20 IV. AMBULATE PT (2) Cystic fibrosis Status: Acute Plan: CXR, Nebs, CPT, Antibiotics (3) Abdominal pain Status: Acute Plan: IMPROVED, RELIEVED CONSTIPATION (4) Pseudomonas aeruginosa infection Status: Acute Plan: IV LEVAQUIN, RESP THERAPY (5) Abnormal glucose Status: Acute Plan: R/T STEROIDS USE, WILL ENCOURAGE ORAL WATER INTAKE, BS MONITORING
[2017-08-24] MEDS: NS 1/2 1000 ML IV 1,000 ML IV SCH (19:44)
[2017-08-24] MEDS: MIRALAX POWDER (1 DOSE 17GM) PO SCH (20:35)
[2017-08-24] MEDS: COLACE CAP 100 MG PO SCH (20:35)
[2017-08-25] MEDS: DUONEB 0.5 MG/3 MG NEB SCH (01:04)
[2017-08-25] MEDS: NORCO 7.5/325 MG TAB PO PRN (02:20)
[2017-08-25] MEDS: ZOFRAN INJ 4 MG VIAL IVP PRN (03:45)
[2017-08-25] MEDS: CREON PO SCH (05:33)
[2017-08-25 05:42] LABS: BASOPHILS # (AUTO) 0.1 X10^3/uL (0.0-0.1); BASOPHILS % (AUTO) 0.4 % (0.2-1.0); EOSINOPHILS # (AUTO) 0.1 x10^3/uL (0.0-0.2); EOSINOPHILS % (AUTO) 0.4 % (0.9-2.9); HEMATOCRIT 35.6 % (36.0-47.0); HEMOGLOBIN 11.9 g/dL (12.0-16.0); LYMPHOCYTES # (AUTO) 4.4 X10^3/uL (1.3-2.9); LYMPHOCYTES % (AUTO) 32.8 % (21.0-51.0); MEAN CORPUSCULAR HEMOGLOBIN 27.8 pg (27.0-34.0); MEAN CORPUSCULAR HGB CONC 33.4 g/dL (33.0-35.0); MEAN CORPUSCULAR VOLUME 83.2 fL (80.0-100.0); MEAN PLATELET VOLUME 8.6 fL (7.4-11.0); MONOCYTES # (AUTO) 1.2 x10^3/uL (0.3-0.8); MONOCYTES % (AUTO) 9.3 % (0.0-13.0); NEUTROPHILS # (AUTO) 7.6 x10^3/uL (2.2-4.8); NEUTROPHILS % (AUTO) 57.1 % (42.0-75.0); PLATELET COUNT 205 X10^3/uL (150.0-450.0); RED BLOOD COUNT 4.28 X10^6/uL (3.5-5.4); RED CELL DISTRIBUTION WIDTH 13.1 % (11.6-16.5); WHITE BLOOD COUNT 13.3 X10^3/uL (3.6-10.0)
[2017-08-25 05:57] LABS: ALANINE AMINOTRANSFERASE 118 Units/L (12-78); ALBUMIN 2.4 g/dL (3.4-5.0); ALKALINE PHOSPHATASE 100 Units/L (46-116); ASPARTATE AMINO TRANSFERASE 108 Units/L (15-37); BLOOD UREA NITROGEN 6 mg/dL (7-18); CALCIUM 7.2 mg/dL (8.5-10.1); CARBON DIOXIDE 24.5 mmol/L (21-32); CHLORIDE 111 mmol/L (98-107); COR CA(FOR HYPOALB) 8.5 mg/dL (8.5-10.1); CREATININE 0.69 mg/dL (0.55-1.02); SODIUM 143 mmol/L (136-145); TOTAL PROTEIN 6.1 g/dL (6.4-8.2); eGFR BLACK RACES > 60 (>60); eGFR NON BLACK RACES > 60 (>60)
[2017-08-25] MEDS ORDERED: NS 1/2 1000 ML IV 1,000 ML IV ONE (08:38)
[2017-08-25] MEDS: PEPCID 20 MG IV PREMIX* 20 MG/50 ML BAG IV SCH (08:42)
[2017-08-25] MEDS: NS 1/2 1000 ML IV 1,000 ML IV SCH (08:43)
[2017-08-25] MEDS: MILK OF MAGNESIA PO SCH (08:43)
[2017-08-25] MEDS: MEPHYTON PO SCH (08:43)
[2017-08-25] MEDS: ROBITUSSIN DM PO SCH (08:44)
[2017-08-25] MEDS: LEVAQUIN PREMIX IV 750 MG 750 MG/150 ML BAG IV SCH (09:48)
[2017-08-25] MEDS ORDERED: MILK OF MAGNESIA PO SCH (10:00)
--- NOTE | 2017-08-25 10:48 | RAD ---
History: Lower abdominal pain Study: Acute abdominal series Findings: PA view of the chest and supine and upright views of the abdomen are obtained. Heart and me diastinal structures appear unremarkable. Linear atelectasis overlies the inferior left hilum. On the upright view the abdomen there appears to be a small right pleural effusion. There is no free subdia phragmatic air. A right arm PICC line is in place tip within the caudal aspect of the right atrium. B owel gas pattern is unremarkable. Renal outlines are obscured by overlying bowel content. No abnormal calcifications are seen. Impression: Small right pleural effusion. Right-sided PICC line in place. Nonspecific abdomen. Reported By:
[2017-08-25 11:34] VITALS: BP 116/61
== END 2017-08-25 12:05 | disposition home or self-care (01) | DRG 178 ==
LOC: OBS 12:11 → UNDOADMIN 12:11 → OBS 12:40 → MED/SURG 08-22 14:56
PROVIDERS: ADMIT Internal Medicine; ATTEND Internal Medicine
PROC: 0JHD3WZ Insertion of Totally Implantable Vascular Access Device into Right Upper Arm Subcutaneous Tissue and Fascia, Percutaneous Approach (ICD-10-PCS; principal; 2017-08-19)
DX: J15.1 Pneumonia due to Pseudomonas (principal); J16.8 Pneumonia due to other specified infectious organisms; E84.9 Cystic fibrosis, unspecified; J42 Unspecified chronic bronchitis; R10.84 Generalized abdominal pain; M25.562 Pain in left knee; M25.561 Pain in right knee; B96.5 Pseudomonas (aeruginosa) (mallei) (pseudomallei) as the cause of diseases classified elsewhere; R73.09 Other abnormal glucose; R60.0 Localized edema
CPT/HCPCS: 36415; 36600; 71045; 71046; 71250; 73560; 74018; 74022; 80053; 81003; 82803; 83605; 85025; 86308; 86430; 87040; 87070; 87077; 87186; 87205; 94640; 94669; 94760; A4222; S0028; J0696; J1956; J2001; J2405; J2920; J3490; J7608; J7620; J7626

== ENCOUNTER 2017-12-08 14:06 | Inpatient (IN) ==
--- NOTE | 2017-12-08 14:26 | DR.H&P ---
H&P - History & Physical for Day of: H&P Date: 12/07/17 - Chief Complaint Chief Complaint: SOB, Cough, Congestion - History of Present Illness History of Present Illness: The patient is a 22-year-old white female who presents to the clinic with complaint of pneumonia. Patient was seen in the emergency room at [facility] on 12/03/2017 and found to have bilateral upper lobe infiltrates. Patient at that time refused admission. Patient states that she has been doing her nebulizer treatments as well as CPT therapy. States that she is hurting in her chest mostly to the front rib cage. Denies having productive cough. Has been having low-grade fevers. Patient does have cystic fibrosis. Has had increased shortness of breath. - Past Medical History Additional Medical History: Cystic Fibrosis, Factor 5, Bilateral knee pain - Past Surgical History Surgical History: Appendectomy, Ortho Surgery, Other - Family History Family Medical History: Diabetes Mellitus, PR, Heart Failure - Social History Does patient currently use any type of tobacco product: No Have you used tobacco products in the last 12 months: No Type of Tobacco Use: None Does any household member use tobacco: No Alcohol Use: None Drug Use: None - Medications Home Medications: cashew nut Allergy (Verified 08/18/17 13:28) loracarbef [From Lorabid] Allergy (Verified 08/18/17 13:28) - Review of Systems Constitutional: Weakness, Malaise Eyes: No Symptoms Reported ENT: No Symptoms Reported Respiratory: Cough, Shortness of Breath, Pleuritic Pain Cardiovascular: No Symptoms Reported Gastrointestinal: No Symptoms Reported Genitourinary: No Symptoms Reported Musculoskeletal: No Symptoms Reported Skin: No Symptoms Reported Neurological: No Symptoms Reported - Physical Exam Vital Signs: Blood Pressure [Left Arm] 116/61 Blood Pressure [Right Arm] 113/73 Blood Pressure 116/61 Oriented: Normal Eyes: Normal Ear: Normal Nose: Normal Throat: Normal Respiratory: Diminished Throughout, RLL Diminished Cardiovascular: Normal : Normal Auscultation: Bowel Sounds: Normal Palpation: Normal Tenderness: Normal Skin: Normal Musculoskeletal: Normal Psychiatric: Normal Mood Description: Calm Affect: Normal Speech Pattern: Clear - Assessment/Plan (1) Pneumonia Qualifiers: Laterality: bilateral Lung location: upper lobe of lung Status: Acute Plan: IV Antibiotics, Labs, CT (2) Cystic fibrosis Status: Acute Plan: IV antibiotics, CXR - Allergies Allergies/Adverse Reactions: Allergies Allergy/AdvReac Type Severity Reaction Status Date / Time cashew nut Allergy Verified 08/18/17 13:28 [email or web address] [From Lorabid] Allergy Verified 08/18/17 13:28
[2017-12-08] MEDS ORDERED: LEVAQUIN PREMIX IV 750 MG 750 MG/150 ML BAG IV SCH (15:00)
[2017-12-08 15:28] LABS: BASOPHILS # (AUTO) 0.2 X10^3/uL (0.0-0.1); BASOPHILS % (AUTO) 1.4 % (0.2-1.0); EOSINOPHILS # (AUTO) 0.1 x10^3/uL (0.0-0.2); EOSINOPHILS % (AUTO) 0.9 % (0.9-2.9); HEMOGLOBIN 14.2 g/dL (12.0-16.0); LYMPHOCYTES # (AUTO) 2.7 X10^3/uL (1.3-2.9); LYMPHOCYTES % (AUTO) 21.7 % (21.0-51.0); MEAN CORPUSCULAR HEMOGLOBIN 28.2 pg (27.0-34.0); MEAN CORPUSCULAR HGB CONC 33.8 g/dL (33.0-35.0); MEAN CORPUSCULAR VOLUME 83.4 fL (80.0-100.0); MEAN PLATELET VOLUME 8.9 fL (7.4-11.0); MONOCYTES # (AUTO) 0.9 x10^3/uL (0.3-0.8); MONOCYTES % (AUTO) 7.5 % (0.0-13.0); NEUTROPHILS # (AUTO) 8.6 x10^3/uL (2.2-4.8); NEUTROPHILS % (AUTO) 68.5 % (42.0-75.0); PLATELET COUNT 266 X10^3/uL (150.0-450.0); RED BLOOD COUNT 5.03 X10^6/uL (3.5-5.4); RED CELL DISTRIBUTION WIDTH 13.5 % (11.6-16.5); WHITE BLOOD COUNT 12.6 X10^3/uL (3.6-10.0)
[2017-12-08 15:48] LABS: ALANINE AMINOTRANSFERASE 83 Units/L (12-78); ALBUMIN 3.3 g/dL (3.4-5.0); ALKALINE PHOSPHATASE 111 Units/L (46-116); ASPARTATE AMINO TRANSFERASE 57 Units/L (15-37); BLOOD UREA NITROGEN 5 mg/dL (7-18); CALCIUM 8.6 mg/dL (8.5-10.1); CARBON DIOXIDE 22.2 mmol/L (21-32); CHLORIDE 106 mmol/L (98-107); COR CA(FOR HYPOALB) 9.2 mg/dL (8.5-10.1); CREATININE 0.77 mg/dL (0.55-1.02); SODIUM 140 mmol/L (136-145); TOTAL PROTEIN 7.7 g/dL (6.4-8.2); eGFR NON BLACK RACES > 60 (>60)
[2017-12-08 16:41] VITALS: BMI 19.2
[2017-12-08] MEDS: ROBITUSSIN DM PO SCH ×2 (16:44→20:58)
--- NOTE | 2017-12-08 16:47 | RAD ---
History: Shortness of breath and cough and congestion and hemoptysis for 1 year Study: PA and lateral chest Comparison: August 24, 2017 Findings: Reticular nodular streaky densities in the right upper lobe primarily may be slightly worse than on the prior exam. Right upper lobe is worse than left upper lobe. There is no pleural effusion . The lower lobes appear clear. The heart size is normal. There is no obvious adenopathy. Impression: Persistent, perhaps slightly worse, asymmetric right worse than left, upper lobe streaky reticular de nsities which have been seen chronically since 2017. Findings are compatible with cystic fibrosis wit h possible recurrent pneumonitis in the right upper lobe. Reported By:
[2017-12-08] MEDS ORDERED: NS 1/2 1000 ML IV 1,000 ML IV ONE (16:57)
[2017-12-08] MEDS: NS 1/2 1000 ML IV 1,000 ML IV SCH (17:05)
[2017-12-08] MEDS: DUONEB 0.5 MG/3 MG NEB SCH ×2 (17:15→20:56)
[2017-12-09 05:10] LABS: BASOPHILS # (AUTO) 0.1 X10^3/uL (0.0-0.1); EOSINOPHILS # (AUTO) 0.2 x10^3/uL (0.0-0.2); HEMATOCRIT 41.3 % (36.0-47.0); HEMOGLOBIN 13.9 g/dL (12.0-16.0); LYMPHOCYTES # (AUTO) 4.3 X10^3/uL (1.3-2.9); LYMPHOCYTES % (AUTO) 41.7 % (21.0-51.0); MEAN CORPUSCULAR HEMOGLOBIN 28.3 pg (27.0-34.0); MEAN CORPUSCULAR HGB CONC 33.7 g/dL (33.0-35.0); MEAN PLATELET VOLUME 9.3 fL (7.4-11.0); MONOCYTES # (AUTO) 0.9 x10^3/uL (0.3-0.8); MONOCYTES % (AUTO) 9.1 % (0.0-13.0); NEUTROPHILS # (AUTO) 4.7 x10^3/uL (2.2-4.8); NEUTROPHILS % (AUTO) 46.2 % (42.0-75.0); PLATELET COUNT 253 X10^3/uL (150.0-450.0); RED BLOOD COUNT 4.92 X10^6/uL (3.5-5.4); RED CELL DISTRIBUTION WIDTH 13.6 % (11.6-16.5); WHITE BLOOD COUNT 10.2 X10^3/uL (3.6-10.0)
[2017-12-09 05:23] LABS: ALANINE AMINOTRANSFERASE 80 Units/L (12-78); ALBUMIN 3.1 g/dL (3.4-5.0); ALKALINE PHOSPHATASE 105 Units/L (46-116); ASPARTATE AMINO TRANSFERASE 55 Units/L (15-37); BLOOD UREA NITROGEN 5 mg/dL (7-18); CALCIUM 8.4 mg/dL (8.5-10.1); CARBON DIOXIDE 20.6 mmol/L (21-32); CHLORIDE 106 mmol/L (98-107); COR CA(FOR HYPOALB) 9.1 mg/dL (8.5-10.1); COR NA(FOR HYPERGLY) 140 mmol/L (136-145); CREATININE 0.81 mg/dL (0.55-1.02); SODIUM 139 mmol/L (136-145); TOTAL PROTEIN 7.2 g/dL (6.4-8.2); eGFR NON BLACK RACES > 60 (>60)
[2017-12-09] MEDS ORDERED: NS 1/2 1000 ML IV 1,000 ML IV ONE (06:08)
[2017-12-09] MEDS: NS 1/2 1000 ML IV 1,000 ML IV SCH (06:14)
[2017-12-09] MEDS: ZOSYN VIAL 4.5 GRAMS 4.5 G in NS 100 ML IV + SPIKE MINIBAG* 100 ML IV SCH ×3 (08:38→21:02)
[2017-12-09] MEDS: TUSSIONEX PENNKINETIC SUSP PO PRN ×2 (08:38→21:01)
[2017-12-09] MEDS: ROBITUSSIN DM PO SCH ×4 (08:39→21:01)
[2017-12-09] MEDS: DUONEB 0.5 MG/3 MG NEB SCH ×4 (09:26→20:05)
--- NOTE | 2017-12-09 11:06 | CT ---
HISTORY: Cough, congestion, shortness of breath, cystic fibrosis Study: CT chest without contrast Comparison: 08/22/2017 Technique: Axial noncontrast images with coronal and sagittal reformats. Dose reduction procedures we re used with mA/kv adjusted for body size. Findings: Examination of the mediastinum demonstrated no evidence for mediastinal masses, enlarged mediastinal or enlarged hilar adenopathy to the limitations of an unenhanced examination. No pleural effusions ar e identified. No chest wall or axillary abnormality is identified. Those portions of the upper abdomi nal organs visualized were within normal limits with the exception of hepatomegaly with diffuse fatty infiltration. Examination of the lung odom demonstrated diffuse peribronchial thickening more prom inent in the upper than in the lower lobes and not significantly changed when compared with the prior examination. Multiple tree-in-bud opacities are identified in the upper lobes bilaterally with some reticulonodular densities again identified unchanged from the prior examination. No significant nodul es, masses, alveolar infiltrates, areas of consolidation identified. IMPRESSION: Peribronchial thickening, tree-in-bud nodularity upper greater than lower lobes bilaterally and consi stent with cystic fibrosis. No acute alveolar infiltrates are identified. Reported By:
--- NOTE | 2017-12-09 11:57 | MRI ---
MRI right knee without contrast. Indication: Knee pain Technique: Multiplanar, multi sequence imaging of the right knee without IV contrast administration. Findings: The extensor mechanism is intact. There is moderate tendinosis of the distal quadriceps ten don with adjacent edema surrounding the quadriceps tendon. The patella demonstrates normal appearance of the articular cartilage without subchondral bone marrow edema. The patellar remains well position ed within the femoral trochlear sulcus. Medial and lateral retinacular complexes are normal. No joint effusion. No popliteal fossa cyst. Pes anserine tendons are normal. The popliteus muscle and tendon are normal. No localizing soft tissue swelling. No adenopathy within the popliteal fossa. The medial and lateral femorotibial compartments demonstrate no cartilage thinning or subchondral bon e marrow signal abnormality. Bone marrow signal is normal throughout the right knee. The cruciate and collateral ligaments are normal. Iliotibial band and biceps femoris are normal. The medial and later al menisci are normal. Impression: 1. Moderate distal quadriceps tendinosis. 2. Remaining right knee demonstrates no other abnormality, specifically no cartilage thinning or subc hondral bone marrow edema identified. Cruciate and collateral ligaments along the menisci are normal. Reported By:
--- NOTE | 2017-12-09 12:01 | MRI ---
MRI left knee without contrast Indication: Left knee pain Technique: Multiplanar, multi sequence imaging of the left knee without IV contrast administration. Findings: The extensor mechanism is intact. Patellofemoral compartment demonstrates no chondral thinn ing; however, there is mild chondromalacia of the lateral patellar articular cartilage. Very small am ount of edema is noted inferior to the lateral patellar facet. The patellar remains well positioned w ithin the femoral trochlea. No joint effusion. Medial and lateral retinacular complex are intact. No popliteal fossa cyst. Popliteus muscle is normal. The pes anserine tendons are normal as well. No loc alizing soft tissue swelling. No adenopathy within the popliteal fossa. The medial and lateral femorotibial compartments demonstrate no chondral thinning or subchondral bone marrow signal abnormality. The bone marrow signal is within normal limits within the left knee. Cruciate and collateral ligaments are normal. Biceps femoris and iliotibial band are normal. The medi al and lateral menisci are without evidence of tear. Small cyst undercuts the anterior root of the la teral meniscus, there is no displaced root tear identified. Impression: 1.Mild chondromalacia of the lateral patellar articular cartilage with small amount of edema within t he infrapatellar fat is nonspecific; however does suggest a mild patellar tendon, lateral femoral con dyle friction syndrome. 2. Remaining left knee is otherwise normal. Specifically, there is no chondral thinning, subchondral bone marrow signal abnormality. The cruciate and collateral along the menisci are normal. Reported By:
--- NOTE | 2017-12-09 12:47 | PCM.PROG ---
Progress Note - Progress Note for Day of Date of Exam: 12/09/17 - Subjective Subjective: 22F ADMITTED ON 12/08 WITH PNEUMONIA. PT HAS HX OF CYSTIC FIBROSIS AND WAS SEEN IN ER AT [facility] AND HAD CXR, DIAGNOSED WITH PNEUMONIA ON PO MEDICATION AT HOME WITHOUT IMPROVEMENT. PT CURRENTLY ON IV ZYSYN, PT HAS HAD SPUTUM AND BLOOD CULTURES COLLCETED ON ADMISSION, CONTINUE RESP THERAPY, JET NEBS. PT CO LOWER EXTREMIY PAIN AND KNEE PAIN WITH LIMITED ROM, PT HAS MRI LE'S ORDERED FOR THIS AM. - Past Medical Family Social History Past Med/Fam/Surg Hx: No changes since H&P Allergies: Allergies cashew nut Allergy (Verified 12/08/17 15:10) loracarbef [From Lorabid] Allergy (Verified 12/08/17 15:10) - Review of Systems ROS: No change since H&P - Vital Signs and I&O's Vital Signs: Temperature 98.9 F Pulse Rate [Right Brachial] 71 Pulse Rate 84 Respiratory Rate 18 Blood Pressure [Left Arm] 97/60 Blood Pressure [Right Arm] 93/56 Blood Pressure 116/61 O2 Sat by Pulse Oximetry 98 Intake and Output: Intake & Output 12/07/17 12/08/17 12/09/17 12/10/17 11:59 11:59 11:59 11:59 Intake Total 1817 181 Balance 1817 - Physical Exam Oriented: Normal Eyes: Normal Ear: Normal Nose: Normal Throat: Normal Respiratory: Diminished, Wheezes, Rhonchi Cardiovascular: Normal : Normal Auscultation: Bowel Sounds: Normal Tenderness: Normal Skin: Normal Musculoskeletal: Normal Psychiatric: Normal Mood Description: Calm Affect: Normal Speech Pattern: Clear - Laboratory and Diagnostics Result Diagrams: 12/09/17 04:40 12/09/17 04:40 Labs: 12/08/17 15:16 Sputum - Expectorated Sputum Sputum Culture - Preliminary 12/08/17 15:16 Sputum - Expectorated Sputum - Final Laboratory WBC 10.2 X10^3/uL (3.6-10.0) H 12/09/17 04:40 RBC 4.92 X10^6/uL (3.5-5.4) 12/09/17 04:40 Hgb 13.9 g/dL (12.0-16.0) 12/09/17 04:40 Hct 41.3 % (36.0-47.0) 12/09/17 04:40 MCV 84.0 fL (80.0-100.0) 12/09/17 04:40 MCH 28.3 pg (27.0-34.0) 12/09/17 04:40 MCHC 33.7 g/dL (33.0-35.0) 12/09/17 04:40 RDW 13.6 % (11.6-16.5) 12/09/17 04:40 Plt Count 253 X10^3/uL (150.0-450.0) 12/09/17 04:40 MPV 9.3 fL (7.4-11.0) 12/09/17 04:40 Neut % (Auto) 46.2 % (42.0-75.0) 12/09/17 04:40 Lymph % (Auto) 41.7 % (21.0-51.0) 12/09/17 04:40 [place] % (Auto) 9.1 % (0.0-13.0) 12/09/17 04:40 Eos % (Auto) 2.0 % (0.9-2.9) 12/09/17 04:40 Baso % (Auto) 1.0 % (0.2-1.0) 12/09/17 04:40 Neut # (Auto) 4.7 x10^3/uL (2.2-4.8) 12/09/17 04:40 Lymph # (Auto) 4.3 X10^3/uL (1.3-2.9) H 12/09/17 04:40 [place] # (Auto) 0.9 x10^3/uL (0.3-0.8) H 12/09/17 04:40 Eos # (Auto) 0.2 x10^3/uL (0.0-0.2) 12/09/17 04:40 Baso # (Auto) 0.1 X10^3/uL (0.0-0.1) 12/09/17 04:40 Absolute Nucleated RBC 0.1 /100WBC 12/09/17 04:40 Sodium 139 mmol/L (136-145) 12/09/17 04:40 Corrected Sodium 140 mmol/L (136-145) 12/09/17 04:40 Potassium 3.9 mmol/L (3.5-5.1) 12/09/17 04:40 Chloride 106 mmol/L (98-107) 12/09/17 04:40 Carbon Dioxide 20.6 mmol/L (21-32) L 12/09/17 04:40 BUN 5 mg/dL (7-18) L 12/09/17 04:40 Creatinine 0.81 mg/dL (0.55-1.02) 12/09/17 04:40 Est GFR (MDRD) Af Amer > 60 (>60) 12/09/17 04:40 Est GFR (MDRD) Non-Af > 60 (>60) 12/09/17 04:40 Glucose 161 mg/dL (65-99) H 12/09/17 04:40 Calcium 8.4 mg/dL (8.5-10.1) L 12/09/17 04:40 Corrected Calcium 9.1 mg/dL (8.5-10.1) 12/09/17 04:40 Total Bilirubin 1.20 mg/dL (0.2-1.0) H 12/09/17 04:40 AST 55 Units/L (15-37) H 12/09/17 04:40 ALT 80 Units/L (12-78) H 12/09/17 04:40 Alkaline Phosphatase 105 Units/L (46-116) 12/09/17 04:40 Total Protein 7.2 g/dL (6.4-8.2) 12/09/17 04:40 Albumin 3.1 g/dL (3.4-5.0) L 12/09/17 04:40 Globulin 4.1 g/dL (2.5-4.5) 12/09/17 04:40 Albumin/Globulin Ratio 0.8 Ratio (1.1-2.1) L 12/09/17 04:40 - Plan (1) Pneumonia Status: Acute Qualifiers: Laterality: bilateral Lung location: upper lobe of lung Plan: IV Antibiotics, Labs, CT for this am, continue jet nebs. supplemental o2 , pulmonary toileting, blood and sputum cultures pending. (2) Cystic fibrosis Status: Acute Plan: IV antibiotics, CXR (3) Lower extremity tendinopathy Status: Acute
[2017-12-09] MEDS ORDERED: NORCO 7.5/325 MG TAB PO PRN (17:52)
[2017-12-10] MEDS ORDERED: NS 1/2 1000 ML IV 1,000 ML IV ONE (05:05)
[2017-12-10] MEDS: NS 1/2 1000 ML IV 1,000 ML IV SCH (05:12)
[2017-12-10] MEDS: ZOSYN VIAL 4.5 GRAMS 4.5 G in NS 100 ML IV + SPIKE MINIBAG* 100 ML IV SCH (05:12)
[2017-12-10 06:45] LABS: BASOPHILS # (AUTO) 0.1 X10^3/uL (0.0-0.1); BASOPHILS % (AUTO) 0.8 % (0.2-1.0); EOSINOPHILS # (AUTO) 0.2 x10^3/uL (0.0-0.2); EOSINOPHILS % (AUTO) 2.3 % (0.9-2.9); HEMATOCRIT 39.6 % (36.0-47.0); HEMOGLOBIN 13.2 g/dL (12.0-16.0); LYMPHOCYTES # (AUTO) 3.6 X10^3/uL (1.3-2.9); LYMPHOCYTES % (AUTO) 41.9 % (21.0-51.0); MEAN CORPUSCULAR HGB CONC 33.5 g/dL (33.0-35.0); MEAN CORPUSCULAR VOLUME 83.7 fL (80.0-100.0); MEAN PLATELET VOLUME 8.8 fL (7.4-11.0); MONOCYTES # (AUTO) 0.8 x10^3/uL (0.3-0.8); MONOCYTES % (AUTO) 9.4 % (0.0-13.0); NEUTROPHILS # (AUTO) 3.9 x10^3/uL (2.2-4.8); NEUTROPHILS % (AUTO) 45.6 % (42.0-75.0); PLATELET COUNT 242 X10^3/uL (150.0-450.0); RED BLOOD COUNT 4.73 X10^6/uL (3.5-5.4); RED CELL DISTRIBUTION WIDTH 13.4 % (11.6-16.5); WHITE BLOOD COUNT 8.6 X10^3/uL (3.6-10.0)
[2017-12-10 06:55] LABS: ALANINE AMINOTRANSFERASE 77 Units/L (12-78); ALBUMIN 2.9 g/dL (3.4-5.0); ALKALINE PHOSPHATASE 98 Units/L (46-116); ASPARTATE AMINO TRANSFERASE 51 Units/L (15-37); BLOOD UREA NITROGEN 6 mg/dL (7-18); CALCIUM 8.5 mg/dL (8.5-10.1); CARBON DIOXIDE 25.5 mmol/L (21-32); CHLORIDE 107 mmol/L (98-107); COR CA(FOR HYPOALB) 9.4 mg/dL (8.5-10.1); CREATININE 0.84 mg/dL (0.55-1.02); SODIUM 139 mmol/L (136-145); TOTAL PROTEIN 6.9 g/dL (6.4-8.2); eGFR NON BLACK RACES > 60 (>60)
[2017-12-10] MEDS: DUONEB 0.5 MG/3 MG NEB SCH (09:25)
[2017-12-10] MEDS: ROBITUSSIN DM PO SCH (09:27)
--- NOTE | 2017-12-10 10:24 | RAD ---
History: Pneumonia Study: PA and lateral chest Comparison: December 08 Findings: There are persistent asymmetric, right greater than left fibronodular changes in the upper lobes. There is peribronchial thickening centrally. The heart size is normal. There is no pleural eff usion. Findings may be slightly improved from December 08. Impression: Chronic upper lobe reticular nodular densities and peribronchial thickening, chronic from cystic fibrosis. I cannot exclude a superimposed pneumonitis. Reported By:
[2017-12-10] MEDS: TUSSIONEX PENNKINETIC SUSP PO PRN (11:00)
[2017-12-10 12:34] VITALS: BP 93/52
== END 2017-12-10 12:40 | disposition home or self-care (01) | DRG 178 ==
LOC: MED/SURG 14:10
PROVIDERS: ADMIT Internal Medicine; ATTEND Internal Medicine
DX: R06.02 Shortness of breath; J15.1 Pneumonia due to Pseudomonas; M67.90 Unspecified disorder of synovium and tendon, unspecified site; B96.5 Pseudomonas (aeruginosa) (mallei) (pseudomallei) as the cause of diseases classified elsewhere; E84.9 Cystic fibrosis, unspecified
CPT/HCPCS: 36415; 71020; 71046; 71250; 73721; 80053; 85025; 87040; 87070; 87077; 87186; 87205; 94640; 94760; A4222; J1956; J2543; J7050; J7620

== ENCOUNTER 2018-03-31 08:54 | Inpatient (IN) ==
[2018-03-31] MEDS ORDERED: CHRONULAC PO PRN (09:43)
[2018-03-31 10:22] LABS: BASOPHILS % (AUTO) 0.3 % (0.2-1.0); HEMATOCRIT 39.2 % (36.0-47.0); HEMOGLOBIN 12.8 g/dL (12.0-16.0); LYMPHOCYTES # (AUTO) 3.7 X10^3/uL (1.3-2.9); LYMPHOCYTES % (AUTO) 20.3 % (21.0-51.0); MEAN CORPUSCULAR HEMOGLOBIN 27.1 pg (27.0-34.0); MEAN CORPUSCULAR HGB CONC 32.7 g/dL (33.0-35.0); MEAN CORPUSCULAR VOLUME 83.1 fL (80.0-100.0); MEAN PLATELET VOLUME 8.6 fL (7.4-11.0); MONOCYTES # (AUTO) 1.6 x10^3/uL (0.3-0.8); MONOCYTES % (AUTO) 8.6 % (0.0-13.0); NEUTROPHILS # (AUTO) 13.1 x10^3/uL (2.2-4.8); NEUTROPHILS % (AUTO) 70.8 % (42.0-75.0); PLATELET COUNT 346 X10^3/uL (150.0-450.0); RED BLOOD COUNT 4.72 X10^6/uL (3.5-5.4); RED CELL DISTRIBUTION WIDTH 16.1 % (11.6-16.5); WHITE BLOOD COUNT 18.5 X10^3/uL (3.6-10.0)
[2018-03-31 10:32] LABS: ALANINE AMINOTRANSFERASE 102 Units/L (12-78); ALBUMIN 2.1 g/dL (3.4-5.0); ALKALINE PHOSPHATASE 263 Units/L (46-116); ASPARTATE AMINO TRANSFERASE 173 Units/L (15-37); BLOOD UREA NITROGEN 3 mg/dL (7-18); CALCIUM 8.4 mg/dL (8.5-10.1); CARBON DIOXIDE 24.5 mmol/L (21-32); CHLORIDE 103 mmol/L (98-107); COR CA(FOR HYPOALB) 9.9 mg/dL (8.5-10.1); CREATININE 0.69 mg/dL (0.55-1.02); SODIUM 137 mmol/L (136-145); TOTAL PROTEIN 7.8 g/dL (6.4-8.2); eGFR NON BLACK RACES > 60 (>60)
[2018-03-31 10:56] VITALS: BMI 17.5
--- NOTE | 2018-03-31 10:59 | RAD ---
HISTORY: Constipation pneumonia history of cystic fibrosis Study: Acute Abdominal series ab lateral chest Comparison: Abdominal series 08/25/2017 Technique: PA and lateral chest supine upright views the abdomen Findings: Soft tissues and bony thorax are normal. The heart size and configuration airway and vascularity are normal. Superimposed on mild chronic lung changes are infiltrates right upper lobe and minimally laterally in the left upper lobe unchanged from the last film of 08/25/2017. The lower lung odom are clear. The lateral film confirms bilateral upper lobe pneumonia. There are no associated effusions the PICC line that was present on prior chest film of 08/25/2017 has been removed. Bone detail is normal. There is no free air under the diaphragm. Supine upright views the abdomen show normal bone detail in the inferior ribs lumbar spine and pelvis bowel-gas pattern shows moderate stool throughout the colon but nonobstructed pattern. There is no small bowel distention air-fluid levels free air masses or abnormal calcifications. IMPRESSION: 1. Moderate stool throughout the colon but nonobstructed pattern. 2. Bilateral right greater than left upper lobe pneumonia. Recommend follow-up till clearing. Reported By:
[2018-03-31] MEDS ORDERED: NS 1/2 1000 ML IV 1,000 ML IV ONE (11:00)
[2018-03-31] MEDS: NS 1/2 1000 ML IV 1,000 ML IV SCH (11:09)
[2018-03-31] MEDS: ROCEPHIN VIAL 1 GRAM IVP SCH (11:09)
[2018-03-31] MEDS ORDERED: ULTRAM ONE (11:46)
[2018-03-31] MEDS: ROBITUSSIN DM PO SCH ×3 (12:06→20:39)
[2018-03-31] MEDS: VIBRAMYCIN 100 MG in D5W 250 ML IV 250 ML IV SCH ×2 (12:06→20:39)
[2018-03-31] MEDS: ULTRAM PO PRN ×2 (12:07→20:43)
[2018-03-31] MEDS: XOPENEX 1.25 MG/3 ML NEBULE NEB SCH ×2 (12:09→15:56)
[2018-03-31] MEDS ORDERED: KLOR-CON PO PRN (17:36)
[2018-03-31] MEDS ORDERED: K-RIDER 10 MEQ/NS 100 ML 10 MEQ/100 ML BAG IV PRN (17:36)
[2018-03-31] MEDS ORDERED: POTASSIUM CHL 60 MEQ/NS 0.45% 500 ML IV PRN (17:36)
[2018-03-31] MEDS ORDERED: POTASSIUM CHLORIDE LIQ 20 MEQ UDC PO PRN (17:36)
[2018-03-31] MEDS ORDERED: POTASSIUM CHL 40 MEQ/NS 0.45% 500 ML IV PRN (17:36)
[2018-03-31] MEDS ORDERED: MICRO K EXTEN CAP 10 MEQ PO PRN (17:36)
[2018-03-31] MEDS: K-DUR TAB 20 MEQ PO PRN (17:53)
[2018-03-31] MEDS: TUSSIONEX PENNKINETIC SUSP PO PRN (20:42)
[2018-04-01] MEDS: ULTRAM PO PRN ×3 (00:40→20:12)
[2018-04-01] MEDS: XOPENEX 1.25 MG/3 ML NEBULE NEB SCH ×5 (00:48→17:03)
[2018-04-01 05:16] LABS: BASOPHILS % (AUTO) 0.2 % (0.2-1.0); EOSINOPHILS % (AUTO) 0.1 % (0.9-2.9); HEMATOCRIT 32.9 % (36.0-47.0); HEMOGLOBIN 10.9 g/dL (12.0-16.0); LYMPHOCYTES # (AUTO) 5.1 X10^3/uL (1.3-2.9); LYMPHOCYTES % (AUTO) 27.6 % (21.0-51.0); MEAN CORPUSCULAR HEMOGLOBIN 27.7 pg (27.0-34.0); MEAN CORPUSCULAR VOLUME 83.9 fL (80.0-100.0); MEAN PLATELET VOLUME 8.3 fL (7.4-11.0); MONOCYTES # (AUTO) 2.1 x10^3/uL (0.3-0.8); MONOCYTES % (AUTO) 11.2 % (0.0-13.0); NEUTROPHILS # (AUTO) 11.2 x10^3/uL (2.2-4.8); NEUTROPHILS % (AUTO) 60.9 % (42.0-75.0); PLATELET COUNT 284 X10^3/uL (150.0-450.0); RED BLOOD COUNT 3.92 X10^6/uL (3.5-5.4); RED CELL DISTRIBUTION WIDTH 15.8 % (11.6-16.5); WHITE BLOOD COUNT 18.5 X10^3/uL (3.6-10.0)
[2018-04-01 05:28] LABS: ALANINE AMINOTRANSFERASE 64 Units/L (12-78); ALBUMIN 1.6 g/dL (3.4-5.0); ALKALINE PHOSPHATASE 187 Units/L (46-116); ASPARTATE AMINO TRANSFERASE 73 Units/L (15-37); BLOOD UREA NITROGEN 2 mg/dL (7-18); CALCIUM 7.4 mg/dL (8.5-10.1); CARBON DIOXIDE 22.8 mmol/L (21-32); CHLORIDE 106 mmol/L (98-107); COR CA(FOR HYPOALB) 9.3 mg/dL (8.5-10.1); CREATININE 0.54 mg/dL (0.55-1.02); SODIUM 137 mmol/L (136-145); TOTAL PROTEIN 6.2 g/dL (6.4-8.2); eGFR NON BLACK RACES > 60 (>60)
[2018-04-01] MEDS ORDERED: NS 1/2 1000 ML IV 1,000 ML IV ONE ×2 (05:52→19:13)
[2018-04-01] MEDS: NS 1/2 1000 ML IV 1,000 ML IV SCH ×3 (08:32→20:06)
[2018-04-01] MEDS: ROBITUSSIN DM PO SCH ×5 (08:38→20:07)
[2018-04-01] MEDS: ROCEPHIN VIAL 1 GRAM IVP SCH (08:38)
[2018-04-01] MEDS: VIBRAMYCIN 100 MG in D5W 250 ML IV 250 ML IV SCH ×2 (08:38→20:07)
[2018-04-01] MEDS ORDERED: LEVAQUIN PREMIX IV 750 MG 750 MG/150 ML BAG IV SCH (09:00)
--- NOTE | 2018-04-01 11:23 | DR.H&P ---
H&P - History & Physical for Day of: H&P Date: 03/31/18 - Chief Complaint Chief Complaint: SOB, RUL lung pain, nausea and vomiting - History of Present Illness History of Present Illness: The patient is a 22-year-old female with long history of cystic fibrosis. Patient presents to the office with complaints of right upper lobe lung pain with shortness of breath. States that she is using her neb treatments and CPT device regularly. States that she is never gotten over when she was previously hospitalized with a pneumonia. Does complain of having increased nausea vomiting 2 days. Patient is noted to have approximately 12 pound weight loss within the last 6 weeks. Patient denies fever. States that she does feel bad and has no energy. - Past Medical History Additional Medical History: Cystic Fibrosis, Factor 5, Bilateral knee pain - Past Surgical History Surgical History: Appendectomy, Ortho Surgery, Other - Family History Family Medical History: Diabetes Mellitus, [place], Heart Failure - Social History Does patient currently use any type of tobacco product: No Have you used tobacco products in the last 12 months: No Type of Tobacco Use: None Does any household member use tobacco: No Alcohol Use: None Drug Use: None - Medications Home Medications: cashew nut Allergy (Verified 03/31/18 18:10) loracarbef [From Lorabid] Allergy (Verified 03/31/18 18:10) levofloxacin [From Levaquin] Adverse Reaction (Verified 03/31/18 18:10) CONTINUE taking the following medications furosemide 20 mg PO DAILY 03/31/18 [History] hydroxyzine pamoate 25 mg PO QID PRN 03/31/18 [History] sertraline 50 mg PO DAILY 03/31/18 [History] - Review of Systems Constitutional: Weakness, Malaise Eyes: No Symptoms Reported ENT: No Symptoms Reported Respiratory: Cough, Shortness of Breath, SOB with Excertion, Pleuritic Pain Cardiovascular: No Symptoms Reported Gastrointestinal: Nausea, Vomiting Genitourinary: No Symptoms Reported Musculoskeletal: No Symptoms Reported Skin: No Symptoms Reported Neurological: No Symptoms Reported - Physical Exam Vital Signs: Temperature 99.0 F Pulse Rate [Brachial] 96 Pulse Rate 82 Respiratory Rate 18 Blood Pressure [Left Arm] 82/50 Blood Pressure [Right Arm] 87/54 Blood Pressure 93/52 O2 Sat by Pulse Oximetry 96 Oriented: Normal Eyes: Normal Ear: Normal Nose: Normal Throat: Normal Respiratory: Clear Throughout, RUL Diminished, RML Diminished, RLL Diminished Cardiovascular: Normal : Normal Auscultation: Bowel Sounds: Normal Palpation: Normal Tenderness: Epigastric, Periumbilical Skin: Normal Musculoskeletal: Normal Psychiatric: Normal Mood Description: Calm Affect: Normal Speech Pattern: Clear - Assessment/Plan (1) Nausea & vomiting Status: Acute Plan: Abd series, antiemetics (2) Constipation Status: Acute Plan: abd series, lactulose (3) Cystic fibrosis Status: Acute (4) Pneumonia Qualifiers: Laterality: bilateral Lung location: upper lobe of lung Status: Acute Plan: labs, cxr, blood cultures, nebs, Rocephin and Levaquin - Allergies Allergies/Adverse Reactions: Allergies Allergy/AdvReac Type Severity Reaction Status Date / Time cashew nut Allergy Verified 03/31/18 18:10 loracarbef [From Lorabid] Allergy Verified 03/31/18 18:10 levofloxacin [From Levaquin] AdvReac Verified 03/31/18 18:10
--- NOTE | 2018-04-01 12:59 | PCM.PROG ---
Addendum entered and electronically signed by EMILIE VILLEGAS 04/01/18 13:05: Original Note: Progress Note - Progress Note for Day of Date of Exam: 04/01/18 - Subjective Subjective: 22 F ADMITTED ON 03/31 WITH BILATERAL PNEUMONIA, HX OF CYSTIC FIBROSIS. PT CURRENTLY ON IV ATBX WITH SPUTUM CULTURE PENDING. WBC 18.5 THIS AM. PT DENIES FEVER, CO PLEURITIC PAIN WORSE ON RIGHT SIDE AND BLOODY SPUTUM PRODUCTION. - Past Medical Family Social History Past Med/Fam/Surg Hx: No changes since H&P Allergies: Allergies cashew nut Allergy (Verified 03/31/18 18:10) loracarbef [From Lorabid] Allergy (Verified 03/31/18 18:10) levofloxacin [From Levaquin] Adverse Reaction (Verified 03/31/18 18:10) - Review of Systems ROS: No change since H&P - Vital Signs and I&O's Vital Signs: Temperature 98.7 F Pulse Rate [Brachial] 73 Pulse Rate 82 Respiratory Rate 18 Blood Pressure [Left Arm] 88/55 Blood Pressure [Right Arm] 87/54 Blood Pressure 93/52 O2 Sat by Pulse Oximetry 98 Intake and Output: Intake & Output 03/30/18 03/31/18 04/01/18 04/02/18 11:59 11:59 11:59 11:59 Intake Total 1919 Balance 1919 - Physical Exam Oriented: Normal Eyes: Normal Ear: Normal Nose: Normal Throat: Normal Respiratory: Diminished, Rhonchi Cardiovascular: Normal : Normal Auscultation: Bowel Sounds: Normal Tenderness: Epigastric, Periumbilical Skin: Normal Musculoskeletal: Normal Psychiatric: Normal Mood Description: Calm Affect: Normal Speech Pattern: Clear - Laboratory and Diagnostics Result Diagrams: 04/01/18 04:52 04/01/18 04:52 Labs: 03/31/18 10:00 Sputum - Expectorated Sputum Sputum Culture - Preliminary 03/31/18 10:00 Sputum - Expectorated Sputum - Final Laboratory WBC 18.5 X10^3/uL (3.6-10.0) H 04/01/18 04:52 RBC 3.92 X10^6/uL (3.5-5.4) 04/01/18 04:52 Hgb 10.9 g/dL (12.0-16.0) L 04/01/18 04:52 Hct 32.9 % (36.0-47.0) L 04/01/18 04:52 MCV 83.9 fL (80.0-100.0) 04/01/18 04:52 MCH 27.7 pg (27.0-34.0) 04/01/18 04:52 MCHC 33.0 g/dL (33.0-35.0) 04/01/18 04:52 RDW 15.8 % (11.6-16.5) 04/01/18 04:52 Plt Count 284 X10^3/uL (150.0-450.0) 04/01/18 04:52 MPV 8.3 fL (7.4-11.0) 04/01/18 04:52 Neut % (Auto) 60.9 % (42.0-75.0) 04/01/18 04:52 Lymph % (Auto) 27.6 % (21.0-51.0) 04/01/18 04:52 [place] % (Auto) 11.2 % (0.0-13.0) 04/01/18 04:52 Eos % (Auto) 0.1 % (0.9-2.9) L 04/01/18 04:52 Baso % (Auto) 0.2 % (0.2-1.0) 04/01/18 04:52 Neut # (Auto) 11.2 x10^3/uL (2.2-4.8) H 04/01/18 04:52 Lymph # (Auto) 5.1 X10^3/uL (1.3-2.9) H 04/01/18 04:52 [place] # (Auto) 2.1 x10^3/uL (0.3-0.8) H 04/01/18 04:52 Eos # (Auto) 0.0 x10^3/uL (0.0-0.2) 04/01/18 04:52 Baso # (Auto) 0.0 X10^3/uL (0.0-0.1) 04/01/18 04:52 Absolute Nucleated RBC 0.0 /100WBC 04/01/18 04:52 Sodium 137 mmol/L (136-145) 04/01/18 04:52 Corrected Sodium TNP 04/01/18 04:52 Potassium 3.5 mmol/L (3.5-5.1) 04/01/18 04:52 Chloride 106 mmol/L (98-107) 04/01/18 04:52 Carbon Dioxide 22.8 mmol/L (21-32) 04/01/18 04:52 BUN 2 mg/dL (7-18) L 04/01/18 04:52 Creatinine 0.54 mg/dL (0.55-1.02) L 04/01/18 04:52 Est GFR (MDRD) Af Amer > 60 (>60) 04/01/18 04:52 Est GFR (MDRD) Non-Af > 60 (>60) 04/01/18 04:52 Glucose 74 mg/dL (65-99) 04/01/18 04:52 Calcium 7.4 mg/dL (8.5-10.1) L 04/01/18 04:52 Corrected Calcium 9.3 mg/dL (8.5-10.1) 04/01/18 04:52 Magnesium 1.6 mg/dL (1.7-2.9) L 03/31/18 09:58 Total Bilirubin 1.30 mg/dL (0.2-1.0) H 04/01/18 04:52 AST 73 Units/L (15-37) H 04/01/18 04:52 ALT 64 Units/L (12-78) 04/01/18 04:52 Alkaline Phosphatase 187 Units/L (46-116) H 04/01/18 04:52 Total Protein 6.2 g/dL (6.4-8.2) L 04/01/18 04:52 Albumin 1.6 g/dL (3.4-5.0) L 04/01/18 04:52 Globulin 4.6 g/dL (2.5-4.5) H 04/01/18 04:52 Albumin/Globulin Ratio 0.3 Ratio (1.1-2.1) L 04/01/18 04:52 - Plan (1) Pneumonia Status: Acute Qualifiers: Laterality: bilateral Lung location: upper lobe of lung Plan: BLOOD AND SPUTUM CULTURE COLLECTED ON ADMISSION. nebs, Rocephin and Levaquin. WILL ADD BUDESONIDE AND MUCOMYST TO NEBS, REPEAT SPUTUM CULTURE (2) Cystic fibrosis Status: Acute
[2018-04-01] MEDS ORDERED: MUCOMYST 20% 200 MG/ML NEB SCH (13:00)
[2018-04-01] MEDS ORDERED: PULMICORT NEB TX 0.5 MG NEB SCH (13:00)
[2018-04-01] MEDS: TUSSIONEX PENNKINETIC SUSP PO PRN ×2 (20:07→21:02)
[2018-04-02] MEDS: XOPENEX 1.25 MG/3 ML NEBULE NEB SCH ×4 (00:35→17:27)
[2018-04-02] MEDS: ULTRAM PO PRN ×5 (02:23→23:50)
[2018-04-02] MEDS: NS 1/2 1000 ML IV 1,000 ML IV SCH ×2 (05:03→10:06)
[2018-04-02 06:41] LABS: BASOPHILS # (AUTO) 0.1 X10^3/uL (0.0-0.1); BASOPHILS % (AUTO) 0.6 % (0.2-1.0); EOSINOPHILS % (AUTO) 0.1 % (0.9-2.9); HEMATOCRIT 35.3 % (36.0-47.0); HEMOGLOBIN 11.6 g/dL (12.0-16.0); LYMPHOCYTES % (AUTO) 19.9 % (21.0-51.0); MEAN CORPUSCULAR HEMOGLOBIN 27.2 pg (27.0-34.0); MEAN CORPUSCULAR HGB CONC 32.8 g/dL (33.0-35.0); MEAN CORPUSCULAR VOLUME 82.9 fL (80.0-100.0); MEAN PLATELET VOLUME 8.6 fL (7.4-11.0); MONOCYTES # (AUTO) 1.9 x10^3/uL (0.3-0.8); MONOCYTES % (AUTO) 9.6 % (0.0-13.0); NEUTROPHILS # (AUTO) 14.1 x10^3/uL (2.2-4.8); NEUTROPHILS % (AUTO) 69.8 % (42.0-75.0); PLATELET COUNT 262 X10^3/uL (150.0-450.0); RED BLOOD COUNT 4.25 X10^6/uL (3.5-5.4); RED CELL DISTRIBUTION WIDTH 16.4 % (11.6-16.5); WHITE BLOOD COUNT 20.3 X10^3/uL (3.6-10.0)
[2018-04-02 06:58] LABS: ALANINE AMINOTRANSFERASE 64 Units/L (12-78); ALBUMIN 1.6 g/dL (3.4-5.0); ALKALINE PHOSPHATASE 201 Units/L (46-116); BLOOD UREA NITROGEN 2 mg/dL (7-18); CALCIUM 7.9 mg/dL (8.5-10.1); CARBON DIOXIDE 22.3 mmol/L (21-32); CHLORIDE 102 mmol/L (98-107); COR CA(FOR HYPOALB) 9.8 mg/dL (8.5-10.1); COR NA(FOR HYPERGLY) 135 mmol/L (136-145); CREATININE 0.54 mg/dL (0.55-1.02); SODIUM 134 mmol/L (136-145); TOTAL PROTEIN 6.5 g/dL (6.4-8.2); eGFR NON BLACK RACES > 60 (>60)
[2018-04-02 06:59] LABS: ASPARTATE AMINO TRANSFERASE 97 Units/L (15-37)
[2018-04-02] MEDS: VIBRAMYCIN 100 MG in D5W 250 ML IV 250 ML IV SCH (09:58)
[2018-04-02] MEDS: ROBITUSSIN DM PO SCH ×4 (09:58→20:00)
[2018-04-02] MEDS: ROCEPHIN VIAL 1 GRAM IVP SCH (09:58)
[2018-04-02] MEDS: TUSSIONEX PENNKINETIC SUSP PO PRN ×2 (09:58→19:55)
[2018-04-02] MEDS ORDERED: MERREM VIAL IVP SCH (12:00)
[2018-04-02] MEDS ORDERED: NS 1/2 1000 ML IV 1,000 ML IV ONE (15:01)
[2018-04-02] MEDS: MERREM VIAL IVP SCH (20:00)
[2018-04-02] MEDS: TESSALON PERLES PO PRN (23:35)
[2018-04-03] MEDS: XOPENEX 1.25 MG/3 ML NEBULE NEB SCH ×4 (00:35→17:22)
[2018-04-03] MEDS ORDERED: K-DUR TAB 20 MEQ PO PRN (00:49)
[2018-04-03] MEDS ORDERED: NS 1/2 1000 ML IV 1,000 ML IV ONE ×2 (02:33→18:00)
[2018-04-03] MEDS ORDERED: ROBITUSSIN DM PO ONE (03:06)
[2018-04-03] MEDS: NS 1/2 1000 ML IV 1,000 ML IV SCH ×2 (03:15→18:03)
[2018-04-03 06:50] LABS: ALANINE AMINOTRANSFERASE 65 Units/L (12-78); ALBUMIN 2.2 g/dL (3.4-5.0); ALKALINE PHOSPHATASE 247 Units/L (46-116); BLOOD UREA NITROGEN 3 mg/dL (7-18); CALCIUM 8.6 mg/dL (8.5-10.1); CARBON DIOXIDE 22.2 mmol/L (21-32); CHLORIDE 100 mmol/L (98-107); CREATININE 0.71 mg/dL (0.55-1.02); SODIUM 136 mmol/L (136-145); TOTAL PROTEIN 9.2 g/dL (6.4-8.2); eGFR NON BLACK RACES > 60 (>60)
[2018-04-03 06:53] LABS: ASPARTATE AMINO TRANSFERASE 70 Units/L (15-37)
[2018-04-03] MEDS: MERREM VIAL IVP SCH ×2 (08:24→20:26)
[2018-04-03] MEDS ORDERED: ZOFRAN INJ 4 MG VIAL ONE (08:26)
[2018-04-03] MEDS: ZOFRAN INJ 4 MG VIAL IVP PRN ×2 (08:29→19:41)
[2018-04-03] MEDS ORDERED: XYLOCAINE 1 % (PLAIN) ONE ×2 (08:49→09:35)
[2018-04-03] MEDS ORDERED: BACITRACIN VIAL ONE (08:50)
[2018-04-03] MEDS ORDERED: VERSED ONE (08:56)
[2018-04-03] MEDS ORDERED: DIPRIVAN VIAL ONE (08:56)
[2018-04-03 08:57] LABS: BASOPHILS # (AUTO) 0.1 X10^3/uL (0.0-0.1); BASOPHILS % (AUTO) 0.3 % (0.2-1.0); HEMATOCRIT 43.9 % (36.0-47.0); HEMOGLOBIN 14.6 g/dL (12.0-16.0); LYMPHOCYTES % (AUTO) 14.8 % (21.0-51.0); MEAN CORPUSCULAR HEMOGLOBIN 27.5 pg (27.0-34.0); MEAN CORPUSCULAR HGB CONC 33.2 g/dL (33.0-35.0); MEAN CORPUSCULAR VOLUME 82.8 fL (80.0-100.0); MEAN PLATELET VOLUME 8.2 fL (7.4-11.0); MONOCYTES # (AUTO) 1.4 x10^3/uL (0.3-0.8); NEUTROPHILS % (AUTO) 77.9 % (42.0-75.0); PLATELET COUNT 437 X10^3/uL (150.0-450.0); RED CELL DISTRIBUTION WIDTH 16.1 % (11.6-16.5); WHITE BLOOD COUNT 20.5 X10^3/uL (3.6-10.0)
[2018-04-03] MEDS ORDERED: FENTANYL INJ 100 mcg ONE (09:09)
[2018-04-03] MEDS: ROBITUSSIN DM PO SCH ×4 (10:12→20:26)
[2018-04-03] MEDS: TESSALON PERLES PO PRN ×2 (10:20→19:41)
[2018-04-03] MEDS: TUSSIONEX PENNKINETIC SUSP PO PRN ×2 (10:20→22:32)
[2018-04-03] MEDS: ULTRAM PO PRN (10:23)
[2018-04-03] MEDS: MAGNESIUM SULFATE 1 GRAM/100 mL PREMIX 1 GM/100 ML BAG IV PRN ×2 (10:23→11:37)
[2018-04-03] MEDS ORDERED: DILAUDID INJ IVP ONE (10:25)
--- NOTE | 2018-04-03 10:44 | RAD ---
Portable chest Clinical indication: Port placement Comparison: 12/10/2017. Findings: Left-sided chest port terminates in the superior vena cava with good position. There is evidence of a left-sided pneumothorax. The pneumothorax is seen at the apex of the lung extends to approximately the mid portion of the lateral lung with no more than 5.8 mm of pleural separation. There is consolidation within the right upper lobe. A background of diffuse bilateral fine interstitial infiltrates is also demonstrated. Several nodules are suspected within the left lung at least 1 of which may be cavitary in nature. The heart size and mediastinal contours are normal Impression: Status post left-sided chest port. Small left-sided pneumothorax with approximately 5.8 mm of pleural separation as discussed above Right upper lobe consolidation consistent with pneumonia and other findings of diffuse bilateral interstitial infiltrates and scattered pulmonary nodules, some of which appear cavitary in nature. Reported By:
[2018-04-03] MEDS ORDERED: DILAUDID INJ ONE (11:40)
[2018-04-03] MEDS: PERCOCET TAB 5/325 MG PO PRN ×2 (14:58→19:40)
--- NOTE | 2018-04-03 15:23 | RAD ---
Examination: Portable AP chest History: Port placement Comparison reference 10:32 a.m., 04/03/2018 Findings: There is no change in position of the injection port, terminating near the cavoatrial junction. A very small peripheral left pneumothorax is suggested, less than 5%. This appears smaller than before. There is no change in appearance of heart or lungs. Bilateral interstitial disease, segmental right upper lobe consolidation and mediastinal widening/adenopathy. Impression: 1. Interval decrease in size of very small peripheral left pneumothorax. 2. Review of prior history indicates patient has a history of cystic fibrosis. This probably explains the bilateral interstitial lung disease and nodularity. There is an apparent superimposed inflammatory process in the right upper lobe with probable mediastinal and hilar adenopathy. Follow-up imaging with CT may be appropriate. Reported By:
[2018-04-04] MEDS: ULTRAM PO PRN ×2 (01:02→09:19)
[2018-04-04] MEDS: ZOFRAN INJ 4 MG VIAL IVP PRN ×3 (01:02→18:19)
[2018-04-04] MEDS: XOPENEX 1.25 MG/3 ML NEBULE NEB SCH ×3 (06:32→17:21)
[2018-04-04] MEDS: PERCOCET TAB 5/325 MG PO PRN ×3 (06:41→21:18)
[2018-04-04] MEDS: TESSALON PERLES PO PRN ×2 (06:42→14:50)
[2018-04-04 06:54] LABS: BASOPHILS # (AUTO) 0.1 X10^3/uL (0.0-0.1); BASOPHILS % (AUTO) 0.4 % (0.2-1.0); EOSINOPHILS % (AUTO) 0.1 % (0.9-2.9); HEMATOCRIT 34.1 % (36.0-47.0); HEMOGLOBIN 11.5 g/dL (12.0-16.0); LYMPHOCYTES # (AUTO) 3.2 X10^3/uL (1.3-2.9); MEAN CORPUSCULAR HEMOGLOBIN 27.6 pg (27.0-34.0); MEAN CORPUSCULAR HGB CONC 33.6 g/dL (33.0-35.0); MEAN CORPUSCULAR VOLUME 82.2 fL (80.0-100.0); MEAN PLATELET VOLUME 8.2 fL (7.4-11.0); MONOCYTES % (AUTO) 6.9 % (0.0-13.0); NEUTROPHILS % (AUTO) 81.6 % (42.0-75.0); PLATELET COUNT 388 X10^3/uL (150.0-450.0); RED BLOOD COUNT 4.15 X10^6/uL (3.5-5.4); RED CELL DISTRIBUTION WIDTH 16.1 % (11.6-16.5)
[2018-04-04 06:56] LABS: ALANINE AMINOTRANSFERASE 41 Units/L (12-78); ALBUMIN 1.8 g/dL (3.4-5.0); ALKALINE PHOSPHATASE 174 Units/L (46-116); ASPARTATE AMINO TRANSFERASE 40 Units/L (15-37); BLOOD UREA NITROGEN 2 mg/dL (7-18); CALCIUM 7.6 mg/dL (8.5-10.1); CARBON DIOXIDE 25.8 mmol/L (21-32); CHLORIDE 102 mmol/L (98-107); COR CA(FOR HYPOALB) 9.4 mg/dL (8.5-10.1); CREATININE 0.56 mg/dL (0.55-1.02); MAGNESIUM 1.8 mg/dL (1.7-2.9); SODIUM 136 mmol/L (136-145); TOTAL PROTEIN 7.1 g/dL (6.4-8.2); eGFR NON BLACK RACES > 60 (>60)
[2018-04-04 07:25] LABS: BAND NEUTROPHILS % 6 % (0-10); WHITE BLOOD COUNT 29.4 X10^3/uL (3.6-10.0)
[2018-04-04 07:26] LABS: PLATELET MORPHOLOGY COMMENT NORMAL (NORMAL)
[2018-04-04] MEDS: NS 1/2 1000 ML IV 1,000 ML IV SCH ×4 (08:57→22:51)
[2018-04-04] MEDS: MERREM VIAL IVP SCH ×2 (08:58→21:17)
[2018-04-04] MEDS ORDERED: NS 1/2 1000 ML IV 1,000 ML IV ONE ×2 (09:01→23:15)
[2018-04-04] MEDS: ROBITUSSIN DM PO SCH ×4 (09:05→21:20)
[2018-04-04] MEDS: TUSSIONEX PENNKINETIC SUSP PO PRN ×2 (09:47→21:19)
[2018-04-04] MEDS: ZOLOFT PO SCH (12:10)
--- NOTE | 2018-04-04 13:52 | PCM.PROG ---
Progress Note - Progress Note for Day of Date of Exam: 04/04/18 - Subjective Subjective: 22 F ADMITTED ON 03/31 WITH BILATERAL PNEUMONIA, HX OF CYSTIC FIBROSIS. PT CURRENTLY ON IV ATBX WITH SPUTUM CULTURE + PSUEDOMONAS. WBC 29.4 THIS AM. PT IS TACHYCARDIC THIS AM, EKG WITH SINUS TACH AT 120'S. PT STATES "MY HEART RATE IS ALWAY HIGH, LIKE 130'S" PT HAS PORT A CATH PLACEMENT YESTERDAY WITH CONTROLLED PAIN. PT DENIES FEVER, CO PLEURITIC PAIN WORSE ON RIGHT SIDE AND BLOODY SPUTUM PRODUCTION. WILL OBTAIN ABG AND CT CHEST - Past Medical Family Social History Past Med/Fam/Surg Hx: No changes since H&P Allergies: Allergies cashew nut Allergy (Verified 03/31/18 18:10) loracarbef [From Lorabid] Allergy (Verified 03/31/18 18:10) levofloxacin [From Levaquin] Adverse Reaction (Verified 03/31/18 18:10) - Review of Systems ROS: No change since H&P - Vital Signs and I&O's Vital Signs: Temperature 98.7 F Pulse Rate [Left Brachial] 138 Pulse Rate [Brachial] 130 Pulse Rate 151 Respiratory Rate 24 Blood Pressure [Left Arm] 114/70 Blood Pressure [Right Arm] 87/54 Blood Pressure 93/52 O2 Sat by Pulse Oximetry 96 Intake and Output: Intake & Output 04/02/18 04/03/18 04/04/18 04/05/18 11:59 11:59 11:59 11:59 Intake Total 2265 / 2265 2500 / 2500 2500 / 2500 Balance 2265 / 2265 2500 / 2500 2500 / 2500 - Physical Exam Oriented: Normal Eyes: Normal Ear: Normal Nose: Normal Throat: Normal Respiratory: Diminished, Rhonchi Cardiovascular: Tachycardia : Normal Auscultation: Bowel Sounds: Normal Tenderness: Epigastric, Periumbilical Skin: Normal Musculoskeletal: Normal Psychiatric: Normal Mood Description: Calm Affect: Normal Speech Pattern: Clear, Appropriate - Laboratory and Diagnostics Result Diagrams: 04/04/18 05:50 04/04/18 05:00 Labs: 04/02/18 18:08 Sputum - Expectorated Sputum Sputum Culture - Preliminary 04/02/18 18:08 Sputum - Expectorated Sputum - Final 03/31/18 10:00 Sputum - Expectorated Sputum Sputum Culture - Final Pseudomonas Aeruginosa 03/31/18 10:00 Sputum - Expectorated Sputum - Final 03/31/18 10:09 Blood Blood Culture - Preliminary 03/31/18 09:58 Blood Blood Culture - Preliminary Laboratory WBC 29.4 X10^3/uL (3.6-10.0) H D 04/04/18 05:50 RBC 4.15 X10^6/uL (3.5-5.4) 04/04/18 05:50 Hgb 11.5 g/dL (12.0-16.0) L D 04/04/18 05:50 Hct 34.1 % (36.0-47.0) L 04/04/18 05:50 MCV 82.2 fL (80.0-100.0) 04/04/18 05:50 MCH 27.6 pg (27.0-34.0) 04/04/18 05:50 MCHC 33.6 g/dL (33.0-35.0) 04/04/18 05:50 RDW 16.1 % (11.6-16.5) 04/04/18 05:50 Plt Count 388 X10^3/uL (150.0-450.0) 04/04/18 05:50 Plt Count Comment Adequate (ADEQUATE) 04/04/18 05:50 MPV 8.2 fL (7.4-11.0) 04/04/18 05:50 Neut % (Auto) 81.6 % (42.0-75.0) H 04/04/18 05:50 Lymph % (Auto) 11.0 % (21.0-51.0) L 04/04/18 05:50 [place] % (Auto) 6.9 % (0.0-13.0) 04/04/18 05:50 Eos % (Auto) 0.1 % (0.9-2.9) L 04/04/18 05:50 Baso % (Auto) 0.4 % (0.2-1.0) 04/04/18 05:50 Neut # (Auto) 24.0 x10^3/uL (2.2-4.8) H 04/04/18 05:50 Lymph # (Auto) 3.2 X10^3/uL (1.3-2.9) H 04/04/18 05:50 [place] # (Auto) 2.0 x10^3/uL (0.3-0.8) H 04/04/18 05:50 Eos # (Auto) 0.0 x10^3/uL (0.0-0.2) 04/04/18 05:50 Baso # (Auto) 0.1 X10^3/uL (0.0-0.1) 04/04/18 05:50 Absolute Nucleated RBC 0.0 /100WBC 04/04/18 05:50 Total Counted 100 04/04/18 05:50 Neutrophils % (Manual) 81 % (39-76) H 04/04/18 05:50 Band Neutrophils % 6 % (0-10) 04/04/18 05:50 Lymphocytes % (Manual) 8 % (13-43) L 04/04/18 05:50 Monocytes % (Manual) 5 % (4-9) 04/04/18 05:50 Plt Morphology Comment Normal (NORMAL) 04/04/18 05:50 RBC Morphology Normal (NORMAL) 04/04/18 05:50 Sodium 136 mmol/L (136-145) 04/04/18 05:00 Corrected Sodium TNP 04/04/18 05:00 Potassium 3.9 mmol/L (3.5-5.1) 04/04/18 05:00 Chloride 102 mmol/L (98-107) 04/04/18 05:00 Carbon Dioxide 25.8 mmol/L (21-32) 04/04/18 05:00 BUN 2 mg/dL (7-18) L 04/04/18 05:00 Creatinine 0.56 mg/dL (0.55-1.02) 04/04/18 05:00 Est GFR (MDRD) Af Amer > 60 (>60) 04/04/18 05:00 Est GFR (MDRD) Non-Af > 60 (>60) 04/04/18 05:00 Glucose 94 mg/dL (65-99) 04/04/18 05:00 Calcium 7.6 mg/dL (8.5-10.1) L 04/04/18 05:00 Corrected Calcium 9.4 mg/dL (8.5-10.1) 04/04/18 05:00 Magnesium 1.8 mg/dL (1.7-2.9) 04/04/18 05:00 Total Bilirubin 2.10 mg/dL (0.2-1.0) H 04/04/18 05:00 AST 40 Units/L (15-37) H 04/04/18 05:00 ALT 41 Units/L (12-78) 04/04/18 05:00 Alkaline Phosphatase 174 Units/L (46-116) H 04/04/18 05:00 Total Protein 7.1 g/dL (6.4-8.2) 04/04/18 05:00 Albumin 1.8 g/dL (3.4-5.0) L 04/04/18 05:00 Globulin 5.3 g/dL (2.5-4.5) H 04/04/18 05:00 Albumin/Globulin Ratio 0.3 Ratio (1.1-2.1) L 04/04/18 05:00 Blood Type A POSITIVE 04/03/18 08:35 Antibody Screen Negative 04/03/18 08:35 - Plan (1) Pneumonia Status: Acute Qualifiers: Laterality: bilateral Lung location: upper lobe of lung Plan: BLOOD AND SPUTUM CULTURE COLLECTED ON ADMISSION. nebs, Rocephin and Levaquin. WILL ADD BUDESONIDE AND MUCOMYST TO NEBS, REPEAT SPUTUM CULTURE PEN DING (2) Cystic fibrosis Status: Acute (3) Tachycardia Status: Acute (4) Anorexia Status: Acute Plan: TRIAL ON MEGACE
[2018-04-04] MEDS: MEGACE PO SCH ×2 (15:00→21:17)
--- NOTE | 2018-04-04 15:01 | CT ---
CT chest without contrast Indication: Abnormal chest x-ray, history of cystic fibrosis Comparison: Chest x-ray performed on previous day Technique: Multiple axial images of the chest were obtained from the thoracic inlet to the upper abdomen without the administration of IV contrast. Coronal and sagittal reformatted images were provided. Findings: Overall sensitivity in detection of vascular injury, acute aortic syndrome or mediastinal hematoma is severely limited given lack of IV contrast administration. The thyroid gland is normal. Left chest wall MediPort has its tip terminating within the upper SVC. Gas noted within the left chest wall surrounding the port likely is iatrogenic however clinical correlation is needed. Heart size is normal without pericardial effusion. No significant coronary artery atherosclerotic disease. Shotty upper and lower paratracheal and mildly enlarged right hilar lymphadenopathy is noted. Dense consolidation within the posterior right upper lobe consistent with pneumonia. Peribronchial consolidation is also noted within bilateral lower lobes. There is bronchiectasis with peribronchial thickening and scattered tree-in-bud opacities within both lungs consistent with acute right upper lobe pneumonia in the setting of chronic bronchiectasis/infection. Very tiny sliver of gas is noted within the left pleural space. No pleural effusion. Imaging of the abdomen demonstrates severe steatosis of the liver and fatty replacement of the pancreas. No acute osseous abnormality identified. Impression: 1.Right upper lobe bronchopneumonia with scattered bilateral lower lobe peribronchial ground-glass opacities consistent with multi focal pneumonia. 2. Diffuse peribronchial thickening with bronchiectasis is consistent with chronic infection/bronchiectasis and is in keeping with history of cystic fibrosis. 3. Mediastinal and right hilar lymphadenopathy is likely reactive to the above described acute on chronic infection. 4. Tiny sliver of gas within the left sided pleural space is consistent with a pneumothora, likely chronic. No mediastinal shift to suggest tension. 5. Severe steatosis of the liver with complete fatty replacement the pancreas also in keeping with history of cystic fibrosis. Reported By:
[2018-04-04] MEDS: MUCINEX EXPECTORANT PO SCH ×2 (16:00→21:20)
[2018-04-04] MEDS: AMBIEN PO PRN (21:18)
[2018-04-04] MEDS ORDERED: TOBRAMYCIN SULFATE IV SCH (22:00)
[2018-04-04] MEDS ORDERED: NS IV SCH (22:00)
[2018-04-04] MEDS: TOBRAMYCIN SULFATE 80 MG in NS 100 ML IV 98 ML IV SCH (22:48)
[2018-04-05 05:31] LABS: LACTIC ACID 0.6 mmol/L (0.4-2.0)
[2018-04-05] MEDS: TOBRAMYCIN SULFATE 80 MG in NS 100 ML IV 98 ML IV SCH ×3 (05:54→21:05)
[2018-04-05 06:07] LABS: BASOPHILS # (AUTO) 0.1 X10^3/uL (0.0-0.1); BASOPHILS % (AUTO) 0.5 % (0.2-1.0); EOSINOPHILS # (AUTO) 0.1 x10^3/uL (0.0-0.2); EOSINOPHILS % (AUTO) 0.4 % (0.9-2.9); HEMOGLOBIN 10.8 g/dL (12.0-16.0); LYMPHOCYTES # (AUTO) 4.7 X10^3/uL (1.3-2.9); MEAN CORPUSCULAR HEMOGLOBIN 27.1 pg (27.0-34.0); MEAN CORPUSCULAR HGB CONC 32.7 g/dL (33.0-35.0); MEAN CORPUSCULAR VOLUME 82.9 fL (80.0-100.0); MEAN PLATELET VOLUME 8.1 fL (7.4-11.0); MONOCYTES # (AUTO) 1.9 x10^3/uL (0.3-0.8); MONOCYTES % (AUTO) 8.7 % (0.0-13.0); NEUTROPHILS # (AUTO) 15.4 x10^3/uL (2.2-4.8); NEUTROPHILS % (AUTO) 69.4 % (42.0-75.0); PLATELET COUNT 316 X10^3/uL (150.0-450.0); RED BLOOD COUNT 3.98 X10^6/uL (3.5-5.4); WHITE BLOOD COUNT 22.2 X10^3/uL (3.6-10.0)
[2018-04-05 06:14] LABS: ALANINE AMINOTRANSFERASE 33 Units/L (12-78); ALBUMIN 1.7 g/dL (3.4-5.0); ALKALINE PHOSPHATASE 162 Units/L (46-116); ASPARTATE AMINO TRANSFERASE 43 Units/L (15-37); BLOOD UREA NITROGEN 3 mg/dL (7-18); CALCIUM 7.6 mg/dL (8.5-10.1); CARBON DIOXIDE 25.7 mmol/L (21-32); CHLORIDE 103 mmol/L (98-107); COR CA(FOR HYPOALB) 9.4 mg/dL (8.5-10.1); CREATININE 0.51 mg/dL (0.55-1.02); SODIUM 136 mmol/L (136-145); TOTAL PROTEIN 6.6 g/dL (6.4-8.2); eGFR NON BLACK RACES > 60 (>60)
[2018-04-05] MEDS: XOPENEX 1.25 MG/3 ML NEBULE NEB SCH ×3 (06:34→18:05)
[2018-04-05] MEDS: MUCOMYST 20% 200 MG/ML NEB SCH ×5 (06:34→21:01)
[2018-04-05 06:59] LABS: BAND NEUTROPHILS % 1 % (0-10); PLATELET MORPHOLOGY COMMENT NORMAL (NORMAL)
[2018-04-05] MEDS: MEGACE PO SCH ×2 (09:19→21:04)
[2018-04-05] MEDS: MUCINEX EXPECTORANT PO SCH ×2 (09:19→21:04)
[2018-04-05] MEDS: TESSALON PERLES PO PRN (09:20)
[2018-04-05] MEDS: TUSSIONEX PENNKINETIC SUSP PO PRN (09:20)
[2018-04-05] MEDS: MAGNESIUM SULFATE 1 GRAM/100 mL PREMIX 1 GM/100 ML BAG IV PRN ×2 (09:20→11:23)
[2018-04-05] MEDS: ZOLOFT PO SCH (09:20)
[2018-04-05] MEDS: K-DUR TAB 20 MEQ PO PRN ×2 (09:20→14:30)
[2018-04-05] MEDS: ULTRAM PO PRN (09:22)
[2018-04-05] MEDS: MERREM VIAL IVP SCH ×2 (09:47→21:05)
[2018-04-05] MEDS: ROBITUSSIN DM PO SCH (10:26)
[2018-04-05] MEDS: TOBRAMYCIN NEB SCH ×2 (11:55→21:02)
[2018-04-05] MEDS ORDERED: NS 1/2 1000 ML IV 1,000 ML IV ONE (15:33)
[2018-04-05] MEDS: PERCOCET TAB 5/325 MG PO PRN (16:18)
[2018-04-05] MEDS: NS 1/2 1000 ML IV 1,000 ML IV SCH (16:33)
[2018-04-05] MEDS: AMBIEN PO PRN (21:51)
[2018-04-06] MEDS: TUSSIONEX PENNKINETIC SUSP PO PRN ×2 (00:44→16:24)
[2018-04-06] MEDS: ULTRAM PO PRN ×2 (00:47→07:05)
[2018-04-06] MEDS: XOPENEX 1.25 MG/3 ML NEBULE NEB SCH ×5 (00:47→18:18)
[2018-04-06] MEDS ORDERED: NS 1/2 1000 ML IV 1,000 ML IV ONE ×2 (03:30→19:25)
[2018-04-06] MEDS: PERCOCET TAB 5/325 MG PO PRN ×2 (05:01→19:57)
[2018-04-06] MEDS: NS 1/2 1000 ML IV 1,000 ML IV SCH ×4 (06:07→21:07)
[2018-04-06 06:12] LABS: BASOPHILS # (AUTO) 0.1 X10^3/uL (0.0-0.1); BASOPHILS % (AUTO) 0.7 % (0.2-1.0); EOSINOPHILS # (AUTO) 0.1 x10^3/uL (0.0-0.2); EOSINOPHILS % (AUTO) 0.4 % (0.9-2.9); HEMOGLOBIN 10.8 g/dL (12.0-16.0); LYMPHOCYTES # (AUTO) 3.7 X10^3/uL (1.3-2.9); LYMPHOCYTES % (AUTO) 21.9 % (21.0-51.0); MEAN CORPUSCULAR HEMOGLOBIN 27.4 pg (27.0-34.0); MEAN CORPUSCULAR HGB CONC 32.8 g/dL (33.0-35.0); MEAN CORPUSCULAR VOLUME 83.4 fL (80.0-100.0); MEAN PLATELET VOLUME 8.1 fL (7.4-11.0); MONOCYTES # (AUTO) 1.9 x10^3/uL (0.3-0.8); MONOCYTES % (AUTO) 11.2 % (0.0-13.0); NEUTROPHILS # (AUTO) 11.2 x10^3/uL (2.2-4.8); NEUTROPHILS % (AUTO) 65.8 % (42.0-75.0); PLATELET COUNT 289 X10^3/uL (150.0-450.0); RED BLOOD COUNT 3.96 X10^6/uL (3.5-5.4); RED CELL DISTRIBUTION WIDTH 16.3 % (11.6-16.5)
[2018-04-06] MEDS: TOBRAMYCIN SULFATE 80 MG in NS 100 ML IV 98 ML IV SCH ×3 (06:13→21:30)
[2018-04-06 06:16] LABS: ALANINE AMINOTRANSFERASE 52 Units/L (12-78); ALBUMIN 1.8 g/dL (3.4-5.0); ALKALINE PHOSPHATASE 217 Units/L (46-116); ASPARTATE AMINO TRANSFERASE 135 Units/L (15-37); BLOOD UREA NITROGEN 2 mg/dL (7-18); CALCIUM 7.6 mg/dL (8.5-10.1); CARBON DIOXIDE 25.5 mmol/L (21-32); CHLORIDE 105 mmol/L (98-107); COR CA(FOR HYPOALB) 9.4 mg/dL (8.5-10.1); CREATININE 0.54 mg/dL (0.55-1.02); MAGNESIUM 1.7 mg/dL (1.7-2.9); SODIUM 136 mmol/L (136-145); TOTAL PROTEIN 6.8 g/dL (6.4-8.2); eGFR NON BLACK RACES > 60 (>60)
[2018-04-06] MEDS: MUCINEX EXPECTORANT PO SCH ×2 (08:20→21:07)
[2018-04-06] MEDS: MEGACE PO SCH ×2 (08:20→21:07)
[2018-04-06] MEDS: ZOLOFT PO SCH (08:20)
[2018-04-06] MEDS: MERREM VIAL IVP SCH ×2 (08:20→21:08)
[2018-04-06] MEDS ORDERED: VERSED ONE (10:50)
[2018-04-06] MEDS ORDERED: NS 1/2 1000 ML IV 0 ML IV ONE (16:21)
[2018-04-06] MEDS: TOBRAMYCIN NEB SCH ×2 (16:25→20:23)
[2018-04-06] MEDS: MUCOMYST 20% 200 MG/ML NEB SCH ×3 (16:25→18:18)
[2018-04-06] MEDS: AMBIEN PO PRN (21:07)
[2018-04-06 21:11] LABS: CREATININE 0.82 mg/dL (0.55-1.02); TOBRAMYCIN,TROUGH 0.9 ug/mL (0-2)
[2018-04-07] MEDS: MUCOMYST 20% 200 MG/ML NEB SCH ×3 (01:05→11:41)
[2018-04-07] MEDS: XOPENEX 1.25 MG/3 ML NEBULE NEB SCH ×4 (01:05→19:47)
[2018-04-07] MEDS: PERCOCET TAB 5/325 MG PO PRN ×3 (01:44→13:15)
[2018-04-07] MEDS: TESSALON PERLES PO PRN ×2 (01:44→20:51)
[2018-04-07] MEDS: ULTRAM PO PRN ×2 (03:33→21:02)
[2018-04-07] MEDS: TOBRAMYCIN SULFATE 80 MG in NS 100 ML IV 98 ML IV SCH ×3 (05:40→21:03)
[2018-04-07 06:04] LABS: BASOPHILS # (AUTO) 0.1 X10^3/uL (0.0-0.1); BASOPHILS % (AUTO) 0.5 % (0.2-1.0); EOSINOPHILS # (AUTO) 0.1 x10^3/uL (0.0-0.2); EOSINOPHILS % (AUTO) 0.4 % (0.9-2.9); HEMATOCRIT 33.3 % (36.0-47.0); LYMPHOCYTES # (AUTO) 3.8 X10^3/uL (1.3-2.9); LYMPHOCYTES % (AUTO) 26.9 % (21.0-51.0); MEAN CORPUSCULAR HEMOGLOBIN 27.5 pg (27.0-34.0); MEAN CORPUSCULAR HGB CONC 33.1 g/dL (33.0-35.0); MEAN PLATELET VOLUME 7.8 fL (7.4-11.0); MONOCYTES # (AUTO) 1.4 x10^3/uL (0.3-0.8); MONOCYTES % (AUTO) 9.7 % (0.0-13.0); NEUTROPHILS # (AUTO) 8.9 x10^3/uL (2.2-4.8); NEUTROPHILS % (AUTO) 62.5 % (42.0-75.0); PLATELET COUNT 271 X10^3/uL (150.0-450.0); RED BLOOD COUNT 4.01 X10^6/uL (3.5-5.4); RED CELL DISTRIBUTION WIDTH 16.6 % (11.6-16.5); WHITE BLOOD COUNT 14.3 X10^3/uL (3.6-10.0)
[2018-04-07 06:12] LABS: ALANINE AMINOTRANSFERASE 75 Units/L (12-78); ALBUMIN 1.7 g/dL (3.4-5.0); ALKALINE PHOSPHATASE 202 Units/L (46-116); ASPARTATE AMINO TRANSFERASE 189 Units/L (15-37); BLOOD UREA NITROGEN 3 mg/dL (7-18); CALCIUM 7.9 mg/dL (8.5-10.1); CARBON DIOXIDE 26.8 mmol/L (21-32); CHLORIDE 104 mmol/L (98-107); COR CA(FOR HYPOALB) 9.7 mg/dL (8.5-10.1); CREATININE 0.58 mg/dL (0.55-1.02); SODIUM 138 mmol/L (136-145); TOTAL PROTEIN 6.7 g/dL (6.4-8.2); eGFR NON BLACK RACES > 60 (>60)
[2018-04-07] MEDS ORDERED: NS 1/2 1000 ML IV 1,000 ML IV ONE ×2 (06:35→21:00)
[2018-04-07] MEDS: NS 1/2 1000 ML IV 1,000 ML IV SCH ×3 (07:01→21:03)
[2018-04-07] MEDS: MERREM VIAL IVP SCH ×2 (08:04→20:50)
[2018-04-07] MEDS: MUCINEX EXPECTORANT PO SCH ×2 (08:04→20:51)
[2018-04-07] MEDS: ZOLOFT PO SCH (08:04)
[2018-04-07] MEDS: MEGACE PO SCH ×2 (08:04→20:51)
[2018-04-07] MEDS: TOBRAMYCIN NEB SCH ×2 (08:55→21:40)
[2018-04-07] MEDS: AMBIEN PO PRN (20:51)
[2018-04-07] MEDS: TUSSIONEX PENNKINETIC SUSP PO PRN (20:51)
[2018-04-08] MEDS: MUCOMYST 20% 200 MG/ML NEB SCH ×4 (05:15→17:17)
[2018-04-08] MEDS: XOPENEX 1.25 MG/3 ML NEBULE NEB SCH ×4 (05:16→17:18)
[2018-04-08] MEDS ORDERED: NS 1/2 1000 ML IV 1,000 ML IV ONE ×2 (05:26→20:38)
[2018-04-08 05:46] LABS: BASOPHILS # (AUTO) 0.1 X10^3/uL (0.0-0.1); BASOPHILS % (AUTO) 0.7 % (0.2-1.0); EOSINOPHILS # (AUTO) 0.1 x10^3/uL (0.0-0.2); EOSINOPHILS % (AUTO) 0.4 % (0.9-2.9); HEMATOCRIT 35.8 % (36.0-47.0); HEMOGLOBIN 11.9 g/dL (12.0-16.0); LYMPHOCYTES # (AUTO) 4.2 X10^3/uL (1.3-2.9); LYMPHOCYTES % (AUTO) 23.9 % (21.0-51.0); MEAN CORPUSCULAR HEMOGLOBIN 27.6 pg (27.0-34.0); MEAN CORPUSCULAR HGB CONC 33.2 g/dL (33.0-35.0); MEAN CORPUSCULAR VOLUME 83.2 fL (80.0-100.0); MEAN PLATELET VOLUME 7.9 fL (7.4-11.0); MONOCYTES # (AUTO) 1.5 x10^3/uL (0.3-0.8); MONOCYTES % (AUTO) 8.6 % (0.0-13.0); NEUTROPHILS # (AUTO) 11.7 x10^3/uL (2.2-4.8); NEUTROPHILS % (AUTO) 66.4 % (42.0-75.0); PLATELET COUNT 253 X10^3/uL (150.0-450.0); WHITE BLOOD COUNT 17.6 X10^3/uL (3.6-10.0)
[2018-04-08 05:55] LABS: ALANINE AMINOTRANSFERASE 80 Units/L (12-78); ALBUMIN 1.8 g/dL (3.4-5.0); ALKALINE PHOSPHATASE 212 Units/L (46-116); ASPARTATE AMINO TRANSFERASE 155 Units/L (15-37); BLOOD UREA NITROGEN 2 mg/dL (7-18); CARBON DIOXIDE 26.5 mmol/L (21-32); CHLORIDE 104 mmol/L (98-107); COR CA(FOR HYPOALB) 9.8 mg/dL (8.5-10.1); CREATININE 0.48 mg/dL (0.55-1.02); SODIUM 137 mmol/L (136-145); TOTAL PROTEIN 7.3 g/dL (6.4-8.2); eGFR NON BLACK RACES > 60 (>60)
[2018-04-08 06:11] LABS: TOBRAMYCIN,TROUGH 0.4 ug/mL (0-2)
[2018-04-08] MEDS: K-DUR TAB 20 MEQ PO PRN (06:22)
[2018-04-08] MEDS: NS 1/2 1000 ML IV 1,000 ML IV SCH ×4 (06:22→23:29)
[2018-04-08] MEDS: TOBRAMYCIN SULFATE 80 MG in NS 100 ML IV 98 ML IV SCH ×3 (06:24→21:01)
--- NOTE | 2018-04-08 06:33 | RAD ---
HISTORY: Follow-up pneumonia, cystic fibrosis Study: Chest AP portable Comparison: 04/03/2018, chest CT 04/04/2018 Findings: There is a port present on the left. The heart is within normal limits in size. The vincent are normal. There has been significant improvement in the right upper lobe pneumonia being followed. Residual infiltrate remains and continued follow-up is recommended. The remainder of the lung odom are free of acute infiltrates. Mild interstitial lung changes are present. The bony thorax is unremarkable. IMPRESSION: Improved but not completely resolved right upper lobe infiltrate. Continued follow-up is recommended Mild interstitial lung changes Reported By:
[2018-04-08] MEDS: ZOLOFT PO SCH (09:03)
[2018-04-08] MEDS: MEGACE PO SCH ×2 (09:03→20:51)
[2018-04-08] MEDS: MUCINEX EXPECTORANT PO SCH ×2 (09:03→20:52)
[2018-04-08] MEDS: MERREM VIAL IVP SCH ×2 (09:03→20:51)
[2018-04-08] MEDS: ULTRAM PO PRN ×2 (09:11→20:52)
[2018-04-08] MEDS: TOBRAMYCIN NEB SCH (09:29)
[2018-04-08] MEDS: TUSSIONEX PENNKINETIC SUSP PO PRN (20:51)
[2018-04-08] MEDS: AMBIEN PO PRN (20:52)
[2018-04-08] MEDS: TESSALON PERLES PO PRN (20:52)
[2018-04-09] MEDS: NS 1/2 1000 ML IV 1,000 ML IV SCH ×2 (05:55→14:08)
[2018-04-09] MEDS: TOBRAMYCIN SULFATE 80 MG in NS 100 ML IV 98 ML IV SCH ×3 (05:55→22:39)
[2018-04-09] MEDS: MUCOMYST 20% 200 MG/ML NEB SCH ×4 (06:02→19:02)
[2018-04-09] MEDS: TOBRAMYCIN NEB SCH ×2 (06:02→09:04)
[2018-04-09] MEDS: XOPENEX 1.25 MG/3 ML NEBULE NEB SCH ×4 (06:02→19:02)
[2018-04-09 07:11] LABS: ALANINE AMINOTRANSFERASE 92 Units/L (12-78); ALBUMIN 1.7 g/dL (3.4-5.0); ALKALINE PHOSPHATASE 218 Units/L (46-116); ASPARTATE AMINO TRANSFERASE 201 Units/L (15-37); BLOOD UREA NITROGEN 2 mg/dL (7-18); CALCIUM 8.1 mg/dL (8.5-10.1); CARBON DIOXIDE 26.4 mmol/L (21-32); CHLORIDE 104 mmol/L (98-107); COR CA(FOR HYPOALB) 9.9 mg/dL (8.5-10.1); CREATININE 0.43 mg/dL (0.55-1.02); SODIUM 136 mmol/L (136-145); TOTAL PROTEIN 7.1 g/dL (6.4-8.2); eGFR NON BLACK RACES > 60 (>60)
[2018-04-09 07:13] LABS: BASOPHILS # (AUTO) 0.1 X10^3/uL (0.0-0.1); BASOPHILS % (AUTO) 0.5 % (0.2-1.0); EOSINOPHILS # (AUTO) 0.1 x10^3/uL (0.0-0.2); EOSINOPHILS % (AUTO) 0.4 % (0.9-2.9); HEMATOCRIT 34.5 % (36.0-47.0); HEMOGLOBIN 11.5 g/dL (12.0-16.0); LYMPHOCYTES # (AUTO) 4.3 X10^3/uL (1.3-2.9); LYMPHOCYTES % (AUTO) 23.3 % (21.0-51.0); MEAN CORPUSCULAR HEMOGLOBIN 27.9 pg (27.0-34.0); MEAN CORPUSCULAR HGB CONC 33.4 g/dL (33.0-35.0); MEAN CORPUSCULAR VOLUME 83.5 fL (80.0-100.0); MONOCYTES # (AUTO) 1.6 x10^3/uL (0.3-0.8); MONOCYTES % (AUTO) 8.8 % (0.0-13.0); NEUTROPHILS # (AUTO) 12.2 x10^3/uL (2.2-4.8); PLATELET COUNT 274 X10^3/uL (150.0-450.0); RED BLOOD COUNT 4.14 X10^6/uL (3.5-5.4); RED CELL DISTRIBUTION WIDTH 16.8 % (11.6-16.5); WHITE BLOOD COUNT 18.2 X10^3/uL (3.6-10.0)
[2018-04-09] MEDS: MUCINEX EXPECTORANT PO SCH ×2 (09:04→20:28)
[2018-04-09] MEDS: MERREM VIAL IVP SCH ×2 (09:04→20:28)
[2018-04-09] MEDS: ZOLOFT PO SCH (09:04)
[2018-04-09] MEDS: MEGACE PO SCH ×2 (09:04→20:27)
[2018-04-09] MEDS: ULTRAM PO PRN ×2 (09:14→19:25)
[2018-04-09] MEDS ORDERED: NS 1/2 1000 ML IV 1,000 ML IV ONE (14:03)
[2018-04-09 14:44] LABS: CREATININE 0.54 mg/dL (0.55-1.02); TOBRAMYCIN,TROUGH 0.6 ug/mL (0-2)
[2018-04-09] MEDS: AMBIEN PO PRN (20:28)
[2018-04-10] MEDS: ULTRAM PO PRN ×3 (00:25→20:57)
[2018-04-10] MEDS: NS 1/2 1000 ML IV 1,000 ML IV SCH ×2 (03:04→17:33)
[2018-04-10] MEDS: TOBRAMYCIN SULFATE 80 MG in NS 100 ML IV 98 ML IV SCH ×3 (05:24→21:20)
[2018-04-10 06:15] LABS: BASOPHILS # (AUTO) 0.1 X10^3/uL (0.0-0.1); BASOPHILS % (AUTO) 0.4 % (0.2-1.0); EOSINOPHILS # (AUTO) 0.1 x10^3/uL (0.0-0.2); EOSINOPHILS % (AUTO) 0.4 % (0.9-2.9); HEMATOCRIT 34.7 % (36.0-47.0); HEMOGLOBIN 11.2 g/dL (12.0-16.0); LYMPHOCYTES # (AUTO) 4.6 X10^3/uL (1.3-2.9); LYMPHOCYTES % (AUTO) 21.9 % (21.0-51.0); MEAN CORPUSCULAR HEMOGLOBIN 27.4 pg (27.0-34.0); MEAN CORPUSCULAR HGB CONC 32.3 g/dL (33.0-35.0); MEAN CORPUSCULAR VOLUME 84.9 fL (80.0-100.0); MEAN PLATELET VOLUME 8.1 fL (7.4-11.0); MONOCYTES # (AUTO) 1.9 x10^3/uL (0.3-0.8); MONOCYTES % (AUTO) 9.1 % (0.0-13.0); NEUTROPHILS # (AUTO) 14.4 x10^3/uL (2.2-4.8); NEUTROPHILS % (AUTO) 68.2 % (42.0-75.0); PLATELET COUNT 268 X10^3/uL (150.0-450.0); RED BLOOD COUNT 4.09 X10^6/uL (3.5-5.4); RED CELL DISTRIBUTION WIDTH 17.1 % (11.6-16.5); WHITE BLOOD COUNT 21.2 X10^3/uL (3.6-10.0)
[2018-04-10 06:34] LABS: ANISOCYTOSIS ALT; BAND NEUTROPHILS % 2 % (0-10); PLATELET MORPHOLOGY COMMENT NORMAL (NORMAL)
[2018-04-10 06:55] LABS: ALANINE AMINOTRANSFERASE 100 Units/L (12-78); ALBUMIN 1.7 g/dL (3.4-5.0); ALKALINE PHOSPHATASE 220 Units/L (46-116); ASPARTATE AMINO TRANSFERASE 234 Units/L (15-37); BLOOD UREA NITROGEN 3 mg/dL (7-18); CALCIUM 7.9 mg/dL (8.5-10.1); CARBON DIOXIDE 26.1 mmol/L (21-32); CHLORIDE 104 mmol/L (98-107); COR CA(FOR HYPOALB) 9.7 mg/dL (8.5-10.1); COR NA(FOR HYPERGLY) 136 mmol/L (136-145); CREATININE 0.48 mg/dL (0.55-1.02); SODIUM 136 mmol/L (136-145); eGFR NON BLACK RACES > 60 (>60)
--- NOTE | 2018-04-10 07:10 | RAD ---
Examination: Chest, PA and lateral views History: Pneumonia Comparison 04/08/2018, chest CT 04/04/2018 Findings: Persistent peripheral right upper lobe infiltrate with additional improvement. Prominence of the right superior mediastinum and right hilum, compatible with adenopathy. Diffuse interstitial prominence throughout the lungs consistent with chronic disease/bronchiectasis. No change in position of injection port. Impression: Persistent but improving right upper lobe infiltrate. Hilar/mediastinal prominence consistent with adenopathy, documented on recent chest CT. No new abnormality demonstrated. Reported By:
[2018-04-10] MEDS: TOBRAMYCIN NEB SCH ×4 (07:13→20:15)
[2018-04-10] MEDS: XOPENEX 1.25 MG/3 ML NEBULE NEB SCH ×5 (07:13→18:09)
[2018-04-10] MEDS: MUCOMYST 20% 200 MG/ML NEB SCH ×4 (07:13→18:07)
[2018-04-10] MEDS: MUCINEX EXPECTORANT PO SCH ×2 (08:57→20:40)
[2018-04-10] MEDS: ZOLOFT PO SCH (08:57)
[2018-04-10] MEDS: MEGACE PO SCH ×2 (08:57→20:40)
[2018-04-10] MEDS: MERREM VIAL IVP SCH ×2 (08:58→20:41)
[2018-04-10] MEDS: AMBIEN PO PRN (20:41)
[2018-04-10] MEDS: TUSSIONEX PENNKINETIC SUSP PO PRN (20:57)
[2018-04-10 21:57] LABS: CREATININE 0.62 mg/dL (0.55-1.02); TOBRAMYCIN,TROUGH 0.9 ug/mL (0-2)
[2018-04-11] MEDS: MUCOMYST 20% 200 MG/ML NEB SCH ×5 (00:55→18:14)
[2018-04-11] MEDS: XOPENEX 1.25 MG/3 ML NEBULE NEB SCH ×5 (00:56→18:14)
[2018-04-11] MEDS: ULTRAM PO PRN ×3 (02:05→20:51)
[2018-04-11] MEDS ORDERED: NS 1/2 1000 ML IV 1,000 ML IV ONE (03:46)
[2018-04-11 05:18] LABS: BASOPHILS # (AUTO) 0.1 X10^3/uL (0.0-0.1); BASOPHILS % (AUTO) 0.5 % (0.2-1.0); EOSINOPHILS # (AUTO) 0.1 x10^3/uL (0.0-0.2); EOSINOPHILS % (AUTO) 0.5 % (0.9-2.9); HEMATOCRIT 35.4 % (36.0-47.0); HEMOGLOBIN 11.5 g/dL (12.0-16.0); LYMPHOCYTES # (AUTO) 4.4 X10^3/uL (1.3-2.9); LYMPHOCYTES % (AUTO) 22.5 % (21.0-51.0); MEAN CORPUSCULAR HEMOGLOBIN 27.5 pg (27.0-34.0); MEAN CORPUSCULAR HGB CONC 32.5 g/dL (33.0-35.0); MEAN CORPUSCULAR VOLUME 84.5 fL (80.0-100.0); MEAN PLATELET VOLUME 8.1 fL (7.4-11.0); MONOCYTES # (AUTO) 1.5 x10^3/uL (0.3-0.8); MONOCYTES % (AUTO) 7.4 % (0.0-13.0); NEUTROPHILS # (AUTO) 13.5 x10^3/uL (2.2-4.8); NEUTROPHILS % (AUTO) 69.1 % (42.0-75.0); PLATELET COUNT 239 X10^3/uL (150.0-450.0); RED BLOOD COUNT 4.19 X10^6/uL (3.5-5.4); RED CELL DISTRIBUTION WIDTH 17.4 % (11.6-16.5); WHITE BLOOD COUNT 19.5 X10^3/uL (3.6-10.0)
[2018-04-11 05:34] LABS: ALANINE AMINOTRANSFERASE 100 Units/L (12-78); ALBUMIN 1.7 g/dL (3.4-5.0); ALKALINE PHOSPHATASE 210 Units/L (46-116); ASPARTATE AMINO TRANSFERASE 206 Units/L (15-37); BLOOD UREA NITROGEN 3 mg/dL (7-18); CALCIUM 8.3 mg/dL (8.5-10.1); CARBON DIOXIDE 25.8 mmol/L (21-32); CHLORIDE 103 mmol/L (98-107); COR CA(FOR HYPOALB) 10.1 mg/dL (8.5-10.1); CREATININE 0.43 mg/dL (0.55-1.02); SODIUM 135 mmol/L (136-145); TOTAL PROTEIN 7.2 g/dL (6.4-8.2); eGFR NON BLACK RACES > 60 (>60)
[2018-04-11] MEDS: TOBRAMYCIN SULFATE 80 MG in NS 100 ML IV 98 ML IV SCH ×3 (05:42→21:07)
[2018-04-11] MEDS: NS 1/2 1000 ML IV 1,000 ML IV SCH ×2 (06:17→21:07)
--- NOTE | 2018-04-11 07:09 | RAD ---
HISTORY: Follow-up pneumonia Study: Chest AP portable Comparison: 04/10/2018, CT chest 04/04/2018 Findings: There is a port present on the left. The heart is within normal limits in size. The vincent are normal. Right upper lobe infiltrate with some volume loss improved slightly when compared with the prior examination. Continued follow-up until clear is recommended. Mild interstitial lung changes are present. The right hilar and mediastinal adenopathy identified on the prior CT are not well demonstrated on plain film. The remainder of the lung odom are clear. IMPRESSION: Slight improvement right upper lobe infiltrate Mild interstitial lung changes, stable Reported By:
[2018-04-11] MEDS ORDERED: NS 50 ML IV 50 ML IV ONE (07:58)
[2018-04-11] MEDS: MERREM VIAL IVP SCH ×2 (08:54→20:48)
[2018-04-11] MEDS: ZOLOFT PO SCH (08:55)
[2018-04-11] MEDS: MEGACE PO SCH ×2 (08:55→20:49)
[2018-04-11] MEDS: MUCINEX EXPECTORANT PO SCH ×2 (08:55→20:48)
[2018-04-11] MEDS: TOBRAMYCIN NEB SCH ×2 (09:42→20:03)
--- NOTE | 2018-04-11 13:50 | PCM.PROG ---
Progress Note - Progress Note for Day of Date of Exam: 04/09/18 - Subjective Subjective: 22 F ADMITTED ON 03/31 WITH BILATERAL PNEUMONIA, HX OF CYSTIC FIBROSIS. PT CURRENTLY ON IV ATBX WITH SPUTUM CULTURE + PSUEDOMONAS. WBC 18.2 THIS AM. PT HAS PORT A CATH PLACEMENT ON 04/07 WITH NO COMPLICATIONS. PT DENIES FEVER, CO PLEURITIC PAIN WORSE ON RIGHT SIDE BUT REPORTS IMPROVEMENT. NURSING STAFF REPORTS PT HAS BEEN NON COMPLIANT WITH RESPIRATORY REGIMEN. ENCOURAGED PT TO AMBULATE, PULOMONARY TOILETING. - Past Medical Family Social History Past Med/Fam/Surg Hx: No changes since H&P Allergies: Allergies cashew nut Allergy (Verified 03/31/18 18:10) loracarbef [From Lorabid] Allergy (Verified 03/31/18 18:10) levofloxacin [From Levaquin] Adverse Reaction (Verified 03/31/18 18:10) - Review of Systems ROS: No change since H&P - Vital Signs and I&O's Vital Signs: Temperature 98.4 F Pulse Rate [Left Brachial] 126 Pulse Rate [Brachial] 136 Pulse Rate 122 Respiratory Rate 18 Blood Pressure [Left Arm] 125/80 Blood Pressure [Right Arm] 118/80 Blood Pressure 93/52 O2 Sat by Pulse Oximetry 97 Intake and Output: Intake & Output 04/09/18 04/10/18 04/11/18 04/12/18 11:59 11:59 11:59 11:59 Intake Total 3128 / 3128 1795 / 1795 1732 / 1732 Balance 3128 / 3128 1795 / 1795 1732 / 1732 - Physical Exam Oriented: Normal Eyes: Normal Ear: Normal Nose: Normal Throat: Normal Respiratory: Diminished, Rhonchi Cardiovascular: Tachycardia : Normal Auscultation: Bowel Sounds: Normal Tenderness: Epigastric, Periumbilical Skin: Normal Musculoskeletal: Normal Psychiatric: Normal Mood Description: Calm Affect: Normal Speech Pattern: Clear, Appropriate - Laboratory and Diagnostics Result Diagrams: 04/11/18 04:43 04/11/18 04:43 Labs: 04/04/18 12:58 Blood Blood Culture - Final 04/04/18 12:55 Blood Blood Culture - Final 03/31/18 10:09 Blood Blood Culture - Final 03/31/18 09:58 Blood Blood Culture - Final 04/02/18 18:08 Sputum - Expectorated Sputum Sputum Culture - Final Pseudomonas Aeruginosa 04/02/18 18:08 Sputum - Expectorated Sputum - Final 03/31/18 10:00 Sputum - Expectorated Sputum Sputum Culture - Final Pseudomonas Aeruginosa 03/31/18 10:00 Sputum - Expectorated Sputum - Final Laboratory WBC 19.5 X10^3/uL (3.6-10.0) H 04/11/18 04:43 RBC 4.19 X10^6/uL (3.5-5.4) 04/11/18 04:43 Hgb 11.5 g/dL (12.0-16.0) L 04/11/18 04:43 Hct 35.4 % (36.0-47.0) L 04/11/18 04:43 MCV 84.5 fL (80.0-100.0) 04/11/18 04:43 MCH 27.5 pg (27.0-34.0) 04/11/18 04:43 MCHC 32.5 g/dL (33.0-35.0) L 04/11/18 04:43 RDW 17.4 % (11.6-16.5) H 04/11/18 04:43 Plt Count 239 X10^3/uL (150.0-450.0) 04/11/18 04:43 Plt Count Comment Adequate (ADEQUATE) 04/10/18 05:11 MPV 8.1 fL (7.4-11.0) 04/11/18 04:43 Neut % (Auto) 69.1 % (42.0-75.0) 04/11/18 04:43 Lymph % (Auto) 22.5 % (21.0-51.0) 04/11/18 04:43 [place] % (Auto) 7.4 % (0.0-13.0) 04/11/18 04:43 Eos % (Auto) 0.5 % (0.9-2.9) L 04/11/18 04:43 Baso % (Auto) 0.5 % (0.2-1.0) 04/11/18 04:43 Neut # (Auto) 13.5 x10^3/uL (2.2-4.8) H 04/11/18 04:43 Lymph # (Auto) 4.4 X10^3/uL (1.3-2.9) H 04/11/18 04:43 [place] # (Auto) 1.5 x10^3/uL (0.3-0.8) H 04/11/18 04:43 Eos # (Auto) 0.1 x10^3/uL (0.0-0.2) 04/11/18 04:43 Baso # (Auto) 0.1 X10^3/uL (0.0-0.1) 04/11/18 04:43 Absolute Nucleated RBC 0.0 /100WBC 04/11/18 04:43 Total Counted 100 04/10/18 05:11 Neutrophils % (Manual) 65 % (39-76) 04/10/18 05:11 Band Neutrophils % 2 % (0-10) 04/10/18 05:11 Lymphocytes % (Manual) 24 % (13-43) 04/10/18 05:11 Monocytes % (Manual) 8 % (4-9) 04/10/18 05:11 Atypical Lymphocytes 1 04/10/18 05:11 Plt Morphology Comment Normal (NORMAL) 04/10/18 05:11 RBC Morphology Abnormal (NORMAL) A 04/10/18 05:11 Anisocytosis Alt 04/10/18 05:11 Sodium 135 mmol/L (136-145) L 04/11/18 04:43 Corrected Sodium TNP 04/11/18 04:43 Potassium 3.7 mmol/L (3.5-5.1) 04/11/18 04:43 Chloride 103 mmol/L (98-107) 04/11/18 04:43 Carbon Dioxide 25.8 mmol/L (21-32) 04/11/18 04:43 BUN 3 mg/dL (7-18) L 04/11/18 04:43 Creatinine 0.43 mg/dL (0.55-1.02) L 04/11/18 04:43 Est GFR (MDRD) Af Amer > 60 (>60) 04/11/18 04:43 Est GFR (MDRD) Non-Af > 60 (>60) 04/11/18 04:43 Glucose 88 mg/dL (65-99) 04/11/18 04:43 Lactic Acid 0.6 mmol/L (0.4-2.0) 04/05/18 05:00 Calcium 8.3 mg/dL (8.5-10.1) L 04/11/18 04:43 Corrected Calcium 10.1 mg/dL (8.5-10.1) 04/11/18 04:43 Magnesium 1.7 mg/dL (1.7-2.9) 04/06/18 04:30 Total Bilirubin 2.10 mg/dL (0.2-1.0) H 04/11/18 04:43 AST 206 Units/L (15-37) H 04/11/18 04:43 ALT 100 Units/L (12-78) H 04/11/18 04:43 Alkaline Phosphatase 210 Units/L (46-116) H 04/11/18 04:43 Total Protein 7.2 g/dL (6.4-8.2) 04/11/18 04:43 Albumin 1.7 g/dL (3.4-5.0) L 04/11/18 04:43 Globulin 5.5 g/dL (2.5-4.5) H 04/11/18 04:43 Albumin/Globulin Ratio 0.3 Ratio (1.1-2.1) L 04/11/18 04:43 Tobramycin Trough 0.9 ug/mL (0-2) 04/10/18 21:26 Blood Type A POSITIVE 04/03/18 08:35 Antibody Screen Negative 04/03/18 08:35 - Plan (1) Pneumonia Status: Acute Qualifiers: Laterality: bilateral Lung location: upper lobe of lung Plan: BLOOD AND SPUTUM CULTURE COLLECTED ON ADMISSION. nebs, Rocephin and Levaquin. WILL ADD BUDESONIDE AND MUCOMYST TO NEBS, REPEAT SPUTUM CULTURE PENDING (2) Cystic fibrosis Status: Acute (3) Tachycardia Status: Acute (4) Anorexia Status: Acute Plan: TRIAL ON MEGACE
--- NOTE | 2018-04-11 13:53 | PCM.PROG ---
Progress Note - Progress Note for Day of Date of Exam: 04/10/18 - Subjective Subjective: 22 F ADMITTED ON 03/31 WITH BILATERAL PNEUMONIA, HX OF CYSTIC FIBROSIS. PT CURRENTLY ON IV ATBX WITH SPUTUM CULTURE + PSUEDOMONAS. WBC 21.2 THIS AM. CHEST XRAY WITH SLIGHT IMPROVEMENT IN RIGHT INFILTRATE. PT HAD ELEVATED LFTS' WITH HX OF HEPATIC STEATOSIS. PT HAD PORT A CATH PLACEMENT ON 04/07 WITH NO COMPLICATIONS. PT DENIES FEVER, CO PLEURITIC PAIN WORSE ON RIGHT SIDE BUT REPORTS IMPROVEMENT. NURSING STAFF REPORTS PT HAS BEEN NON COMPLIANT WITH RESPIRATORY REGIMEN. ENCOURAGED PT TO AMBULATE, PULOMONARY TOILETING. - Past Medical Family Social History Past Med/Fam/Surg Hx: No changes since H&P Allergies: Allergies cashew nut Allergy (Verified 03/31/18 18:10) loracarbef [From Lorabid] Allergy (Verified 03/31/18 18:10) levofloxacin [From Levaquin] Adverse Reaction (Verified 03/31/18 18:10) - Review of Systems ROS: No change since H&P - Vital Signs and I&O's Vital Signs: Temperature 98.4 F Pulse Rate [Left Brachial] 126 Pulse Rate [Brachial] 136 Pulse Rate 122 Respiratory Rate 18 Blood Pressure [Left Arm] 125/80 Blood Pressure [Right Arm] 118/80 Blood Pressure 93/52 O2 Sat by Pulse Oximetry 97 Intake and Output: Intake & Output 04/09/18 04/10/18 04/11/18 04/12/18 11:59 11:59 11:59 11:59 Intake Total 3128 / 3128 1795 / 1795 1732 / 1732 Balance 3128 / 3128 1795 / 1795 1732 / 1732 - Physical Exam Oriented: Normal Eyes: Normal Ear: Normal Nose: Normal Throat: Normal Respiratory: Diminished, Rhonchi Cardiovascular: Tachycardia : Normal Auscultation: Bowel Sounds: Normal Tenderness: Epigastric, Periumbilical Skin: Normal Musculoskeletal: Normal Psychiatric: Normal Mood Description: Calm Affect: Normal Speech Pattern: Clear, Appropriate - Laboratory and Diagnostics Result Diagrams: 04/11/18 04:43 04/11/18 04:43 Labs: 04/04/18 12:58 Blood Blood Culture - Final 04/04/18 12:55 Blood Blood Culture - Final 03/31/18 10:09 Blood Blood Culture - Final 03/31/18 09:58 Blood Blood Culture - Final 04/02/18 18:08 Sputum - Expectorated Sputum Sputum Culture - Final Pseudomonas Aeruginosa 04/02/18 18:08 Sputum - Expectorated Sputum - Final 03/31/18 10:00 Sputum - Expectorated Sputum Sputum Culture - Final Pseudomonas Aeruginosa 03/31/18 10:00 Sputum - Expectorated Sputum - Final Laboratory WBC 19.5 X10^3/uL (3.6-10.0) H 04/11/18 04:43 RBC 4.19 X10^6/uL (3.5-5.4) 04/11/18 04:43 Hgb 11.5 g/dL (12.0-16.0) L 04/11/18 04:43 Hct 35.4 % (36.0-47.0) L 04/11/18 04:43 MCV 84.5 fL (80.0-100.0) 04/11/18 04:43 MCH 27.5 pg (27.0-34.0) 04/11/18 04:43 MCHC 32.5 g/dL (33.0-35.0) L 04/11/18 04:43 RDW 17.4 % (11.6-16.5) H 04/11/18 04:43 Plt Count 239 X10^3/uL (150.0-450.0) 04/11/18 04:43 Plt Count Comment Adequate (ADEQUATE) 04/10/18 05:11 MPV 8.1 fL (7.4-11.0) 04/11/18 04:43 Neut % (Auto) 69.1 % (42.0-75.0) 04/11/18 04:43 Lymph % (Auto) 22.5 % (21.0-51.0) 04/11/18 04:43 [place] % (Auto) 7.4 % (0.0-13.0) 04/11/18 04:43 Eos % (Auto) 0.5 % (0.9-2.9) L 04/11/18 04:43 Baso % (Auto) 0.5 % (0.2-1.0) 04/11/18 04:43 Neut # (Auto) 13.5 x10^3/uL (2.2-4.8) H 04/11/18 04:43 Lymph # (Auto) 4.4 X10^3/uL (1.3-2.9) H 04/11/18 04:43 [place] # (Auto) 1.5 x10^3/uL (0.3-0.8) H 04/11/18 04:43 Eos # (Auto) 0.1 x10^3/uL (0.0-0.2) 04/11/18 04:43 Baso # (Auto) 0.1 X10^3/uL (0.0-0.1) 04/11/18 04:43 Absolute Nucleated RBC 0.0 /100WBC 04/11/18 04:43 Total Counted 100 04/10/18 05:11 Neutrophils % (Manual) 65 % (39-76) 04/10/18 05:11 Band Neutrophils % 2 % (0-10) 04/10/18 05:11 Lymphocytes % (Manual) 24 % (13-43) 04/10/18 05:11 Monocytes % (Manual) 8 % (4-9) 04/10/18 05:11 Atypical Lymphocytes 1 04/10/18 05:11 Plt Morphology Comment Normal (NORMAL) 04/10/18 05:11 RBC Morphology Abnormal (NORMAL) A 04/10/18 05:11 Anisocytosis Alt 04/10/18 05:11 Sodium 135 mmol/L (136-145) L 04/11/18 04:43 Corrected Sodium TNP 04/11/18 04:43 Potassium 3.7 mmol/L (3.5-5.1) 04/11/18 04:43 Chloride 103 mmol/L (98-107) 04/11/18 04:43 Carbon Dioxide 25.8 mmol/L (21-32) 04/11/18 04:43 BUN 3 mg/dL (7-18) L 04/11/18 04:43 Creatinine 0.43 mg/dL (0.55-1.02) L 04/11/18 04:43 Est GFR (MDRD) Af Amer > 60 (>60) 04/11/18 04:43 Est GFR (MDRD) Non-Af > 60 (>60) 04/11/18 04:43 Glucose 88 mg/dL (65-99) 04/11/18 04:43 Lactic Acid 0.6 mmol/L (0.4-2.0) 04/05/18 05:00 Calcium 8.3 mg/dL (8.5-10.1) L 04/11/18 04:43 Corrected Calcium 10.1 mg/dL (8.5-10.1) 04/11/18 04:43 Magnesium 1.7 mg/dL (1.7-2.9) 04/06/18 04:30 Total Bilirubin 2.10 mg/dL (0.2-1.0) H 04/11/18 04:43 AST 206 Units/L (15-37) H 04/11/18 04:43 ALT 100 Units/L (12-78) H 04/11/18 04:43 Alkaline Phosphatase 210 Units/L (46-116) H 04/11/18 04:43 Total Protein 7.2 g/dL (6.4-8.2) 04/11/18 04:43 Albumin 1.7 g/dL (3.4-5.0) L 04/11/18 04:43 Globulin 5.5 g/dL (2.5-4.5) H 04/11/18 04:43 Albumin/Globulin Ratio 0.3 Ratio (1.1-2.1) L 04/11/18 04:43 Tobramycin Trough 0.9 ug/mL (0-2) 04/10/18 21:26 Blood Type A POSITIVE 04/03/18 08:35 Antibody Screen Negative 04/03/18 08:35 - Plan (1) Pneumonia Status: Acute Qualifiers: Laterality: bilateral Lung location: upper lobe of lung Plan: BLOOD AND SPUTUM CULTURE COLLECTED ON ADMISSION. nebs, Rocephin and Levaquin. RESP THERAPY, BUDESONIDE, HIGH FLUID HUMIDIFIED O2 PRN. SMART VEST (2) Cystic fibrosis Status: Acute (3) Tachycardia Status: Acute (4) Anorexia Status: Acute Plan: TRIAL ON MEGACE (5) Hepatic steatosis Status: Acute
--- NOTE | 2018-04-11 17:49 | PCM.PROG ---
Progress Note - Progress Note for Day of Date of Exam: 04/11/18 - Subjective Subjective: 22 F ADMITTED ON 03/31 WITH BILATERAL PNEUMONIA, HX OF CYSTIC FIBROSIS. PT CURRENTLY ON IV ATBX WITH SPUTUM CULTURE + PSUEDOMONAS. WBC 19.5 THIS AM. CHEST XRAY WITH SLIGHT IMPROVEMENT IN RIGHT INFILTRATE. PT HAD ELEVATED LFTS' WITH HX OF HEPATIC STEATOSIS. PT HAD PORT A CATH PLACEMENT ON 04/07 WITH NO COMPLICATIONS. PT DENIES FEVER, CO PLEURITIC PAIN WORSE ON RIGHT SIDE BUT REPORTS IMPROVEMENT. NURSING STAFF REPORTS PT HAS BEEN NON COMPLIANT WITH RESPIRATORY REGIMEN. ENCOURAGED PT TO AMBULATE, PULOMONARY TOILETING. LOW DOSE SOLU MEDROL. - Past Medical Family Social History Past Med/Fam/Surg Hx: No changes since H&P Allergies: Allergies cashew nut Allergy (Verified 03/31/18 18:10) loracarbef [From Lorabid] Allergy (Verified 03/31/18 18:10) levofloxacin [From Levaquin] Adverse Reaction (Verified 03/31/18 18:10) - Review of Systems ROS: No change since H&P - Vital Signs and I&O's Vital Signs: Temperature 98.3 F Pulse Rate [Left Brachial] 118 Pulse Rate [Brachial] 136 Pulse Rate 122 Respiratory Rate 18 Blood Pressure [Left Arm] 126/83 Blood Pressure [Right Arm] 118/80 Blood Pressure 93/52 O2 Sat by Pulse Oximetry 96 Intake and Output: Intake & Output 04/09/18 04/10/18 04/11/18 04/12/18 11:59 11:59 11:59 11:59 Intake Total 3128 / 3128 1795 / 1795 1732 / 1732 440 / 440 Balance 3128 / 3128 1795 / 1795 1732 / 1732 440 / 440 - Physical Exam Oriented: Normal Eyes: Normal Ear: Normal Nose: Normal Throat: Normal Respiratory: Diminished, Rhonchi Cardiovascular: Tachycardia : Normal Auscultation: Bowel Sounds: Normal Tenderness: Epigastric, Periumbilical Skin: Normal Musculoskeletal: Normal Psychiatric: Normal Mood Description: Calm Affect: Normal Speech Pattern: Clear, Appropriate - Laboratory and Diagnostics Result Diagrams: 04/11/18 04:43 04/11/18 04:43 Labs: 04/04/18 12:58 Blood Blood Culture - Final 04/04/18 12:55 Blood Blood Culture - Final 03/31/18 10:09 Blood Blood Culture - Final 03/31/18 09:58 Blood Blood Culture - Final 04/02/18 18:08 Sputum - Expectorated Sputum Sputum Culture - Final Pseudomonas Aeruginosa 04/02/18 18:08 Sputum - Expectorated Sputum - Final 03/31/18 10:00 Sputum - Expectorated Sputum Sputum Culture - Final Pseudomonas Aeruginosa 03/31/18 10:00 Sputum - Expectorated Sputum - Final Laboratory WBC 19.5 X10^3/uL (3.6-10.0) H 04/11/18 04:43 RBC 4.19 X10^6/uL (3.5-5.4) 04/11/18 04:43 Hgb 11.5 g/dL (12.0-16.0) L 04/11/18 04:43 Hct 35.4 % (36.0-47.0) L 04/11/18 04:43 MCV 84.5 fL (80.0-100.0) 04/11/18 04:43 MCH 27.5 pg (27.0-34.0) 04/11/18 04:43 MCHC 32.5 g/dL (33.0-35.0) L 04/11/18 04:43 RDW 17.4 % (11.6-16.5) H 04/11/18 04:43 Plt Count 239 X10^3/uL (150.0-450.0) 04/11/18 04:43 Plt Count Comment Adequate (ADEQUATE) 04/10/18 05:11 MPV 8.1 fL (7.4-11.0) 04/11/18 04:43 Neut % (Auto) 69.1 % (42.0-75.0) 04/11/18 04:43 Lymph % (Auto) 22.5 % (21.0-51.0) 04/11/18 04:43 [place] % (Auto) 7.4 % (0.0-13.0) 04/11/18 04:43 Eos % (Auto) 0.5 % (0.9-2.9) L 04/11/18 04:43 Baso % (Auto) 0.5 % (0.2-1.0) 04/11/18 04:43 Neut # (Auto) 13.5 x10^3/uL (2.2-4.8) H 04/11/18 04:43 Lymph # (Auto) 4.4 X10^3/uL (1.3-2.9) H 04/11/18 04:43 [place] # (Auto) 1.5 x10^3/uL (0.3-0.8) H 04/11/18 04:43 Eos # (Auto) 0.1 x10^3/uL (0.0-0.2) 04/11/18 04:43 Baso # (Auto) 0.1 X10^3/uL (0.0-0.1) 04/11/18 04:43 Absolute Nucleated RBC 0.0 /100WBC 04/11/18 04:43 Total Counted 100 04/10/18 05:11 Neutrophils % (Manual) 65 % (39-76) 04/10/18 05:11 Band Neutrophils % 2 % (0-10) 04/10/18 05:11 Lymphocytes % (Manual) 24 % (13-43) 04/10/18 05:11 Monocytes % (Manual) 8 % (4-9) 04/10/18 05:11 Atypical Lymphocytes 1 04/10/18 05:11 Plt Morphology Comment Normal (NORMAL) 04/10/18 05:11 RBC Morphology Abnormal (NORMAL) A 04/10/18 05:11 Anisocytosis Alt 04/10/18 05:11 Sodium 135 mmol/L (136-145) L 04/11/18 04:43 Corrected Sodium TNP 04/11/18 04:43 Potassium 3.7 mmol/L (3.5-5.1) 04/11/18 04:43 Chloride 103 mmol/L (98-107) 04/11/18 04:43 Carbon Dioxide 25.8 mmol/L (21-32) 04/11/18 04:43 BUN 3 mg/dL (7-18) L 04/11/18 04:43 Creatinine 0.43 mg/dL (0.55-1.02) L 04/11/18 04:43 Est GFR (MDRD) Af Amer > 60 (>60) 04/11/18 04:43 Est GFR (MDRD) Non-Af > 60 (>60) 04/11/18 04:43 Glucose 88 mg/dL (65-99) 04/11/18 04:43 Lactic Acid 0.6 mmol/L (0.4-2.0) 04/05/18 05:00 Calcium 8.3 mg/dL (8.5-10.1) L 04/11/18 04:43 Corrected Calcium 10.1 mg/dL (8.5-10.1) 04/11/18 04:43 Magnesium 1.7 mg/dL (1.7-2.9) 04/06/18 04:30 Total Bilirubin 2.10 mg/dL (0.2-1.0) H 04/11/18 04:43 AST 206 Units/L (15-37) H 04/11/18 04:43 ALT 100 Units/L (12-78) H 04/11/18 04:43 Alkaline Phosphatase 210 Units/L (46-116) H 04/11/18 04:43 Total Protein 7.2 g/dL (6.4-8.2) 04/11/18 04:43 Albumin 1.7 g/dL (3.4-5.0) L 04/11/18 04:43 Globulin 5.5 g/dL (2.5-4.5) H 04/11/18 04:43 Albumin/Globulin Ratio 0.3 Ratio (1.1-2.1) L 04/11/18 04:43 Tobramycin Trough 0.9 ug/mL (0-2) 04/10/18 21:26 Blood Type A POSITIVE 04/03/18 08:35 Antibody Screen Negative 04/03/18 08:35 - Plan (1) Pneumonia Status: Acute Qualifiers: Laterality: bilateral Lung location: upper lobe of lung Plan: BLOOD AND SPUTUM CULTURE COLLECTED ON ADMISSION. nebs, Rocephin and Levaquin. RESP THERAPY, BUDESONIDE, HIGH FLUID HUMIDIFIED O2 PRN. SMART VEST (2) Cystic fibrosis Status: Acute (3) Tachycardia Status: Acute (4) Anorexia Status: Acute Plan: TRIAL ON MEGACE (5) Hepatic steatosis Status: Acute
[2018-04-11] MEDS: SOLU-Medrol 40 MG VIAL IVP SCH ×2 (18:43→21:06)
[2018-04-11] MEDS: AMBIEN PO PRN (20:49)
[2018-04-11] MEDS: TUSSIONEX PENNKINETIC SUSP PO PRN (21:04)
[2018-04-12] MEDS: XOPENEX 1.25 MG/3 ML NEBULE NEB SCH ×2 (00:59→11:46)
[2018-04-12] MEDS: MUCOMYST 20% 200 MG/ML NEB SCH ×2 (00:59→11:46)
[2018-04-12 05:17] LABS: BASOPHILS % (AUTO) 0.2 % (0.2-1.0); HEMATOCRIT 37.6 % (36.0-47.0); HEMOGLOBIN 12.3 g/dL (12.0-16.0); LYMPHOCYTES # (AUTO) 2.3 X10^3/uL (1.3-2.9); LYMPHOCYTES % (AUTO) 15.7 % (21.0-51.0); MEAN CORPUSCULAR HGB CONC 32.6 g/dL (33.0-35.0); MEAN CORPUSCULAR VOLUME 85.7 fL (80.0-100.0); MEAN PLATELET VOLUME 8.6 fL (7.4-11.0); MONOCYTES # (AUTO) 0.3 x10^3/uL (0.3-0.8); MONOCYTES % (AUTO) 1.9 % (0.0-13.0); NEUTROPHILS % (AUTO) 82.2 % (42.0-75.0); PLATELET COUNT 270 X10^3/uL (150.0-450.0); RED BLOOD COUNT 4.39 X10^6/uL (3.5-5.4); WHITE BLOOD COUNT 14.5 X10^3/uL (3.6-10.0)
[2018-04-12 05:28] LABS: ALANINE AMINOTRANSFERASE 126 Units/L (12-78); ALBUMIN 1.9 g/dL (3.4-5.0); ALKALINE PHOSPHATASE 232 Units/L (46-116); ASPARTATE AMINO TRANSFERASE 228 Units/L (15-37); BLOOD UREA NITROGEN 4 mg/dL (7-18); CALCIUM 8.4 mg/dL (8.5-10.1); CARBON DIOXIDE 25.4 mmol/L (21-32); CHLORIDE 101 mmol/L (98-107); CHOLESTEROL < 50 mg/dL (0-200); COR CA(FOR HYPOALB) 10.1 mg/dL (8.5-10.1); COR NA(FOR HYPERGLY) 138 mmol/L (136-145); CREATININE 0.61 mg/dL (0.55-1.02); HDL CHOLESTEROL 10 mg/dL (40-60); SODIUM 134 mmol/L (136-145); TOTAL PROTEIN 8.1 g/dL (6.4-8.2); TRIGLYCERIDES 34 mg/dL (0-150); eGFR NON BLACK RACES > 60 (>60)
[2018-04-12] MEDS: SOLU-Medrol 40 MG VIAL IVP SCH (05:31)
[2018-04-12 05:38] LABS: TOBRAMYCIN,TROUGH 0.5 ug/mL (0-2)
[2018-04-12] MEDS: TOBRAMYCIN SULFATE 80 MG in NS 100 ML IV 98 ML IV SCH (06:00)
[2018-04-12] MEDS: ULTRAM PO PRN (06:01)
[2018-04-12] MEDS: TOBRAMYCIN NEB SCH (08:48)
[2018-04-12] MEDS: MEGACE PO SCH (09:20)
[2018-04-12] MEDS: MUCINEX EXPECTORANT PO SCH (09:20)
[2018-04-12] MEDS: MERREM VIAL IVP SCH (09:20)
[2018-04-12] MEDS: ZOLOFT PO SCH (09:20)
--- NOTE | 2018-04-12 09:34 | RAD ---
History: Cough and shortness of breath Study: PA and lateral chest Comparison: Yesterday Findings: The heart size remains normal. There is a left subclavian Port-A-Cath. There is a persistent streaky infiltrate in the right upper lobe primarily in the posterior segment. There is no effusion. Impression: Persistent right upper lobe posterior segment pneumonia Reported By:
[2018-04-12 13:17] VITALS: BP 127/78
== END 2018-04-12 14:00 | disposition home or self-care (01) | DRG 194 ==
LOC: MED/SURG → OBSVTOIN 09:13
PROVIDERS: ADMIT Internal Medicine; ATTEND Internal Medicine
DX: E84.9 Cystic fibrosis, unspecified; R10.84 Generalized abdominal pain; K59.09 Other constipation; B96.5 Pseudomonas (aeruginosa) (mallei) (pseudomallei) as the cause of diseases classified elsewhere; I87.2 Venous insufficiency (chronic) (peripheral); J20.8 Acute bronchitis due to other specified organisms; K76.0 Fatty (change of) liver, not elsewhere classified; R11.2 Nausea with vomiting, unspecified; J18.8 Other pneumonia, unspecified organism; R06.02 Shortness of breath; R00.0 Tachycardia, unspecified; R07.81 Pleurodynia; R63.0 Anorexia
CPT/HCPCS: 36415; 71010; 71020; 71045; 71046; 71250; 74022; 76000; 80053; 80061; 80200; 82565; 83605; 83735; 84132; 85025; 86850; 86900; 86901; 87040; 87070; 87077; 87186; 87205; 93005; 94640; 94669; 94760; 99231; A4222; S0179; G0378; J0696; J1170; J1642; J2185; J2250; J2405; J2704; J2920; J3010; J3260; J3475; J3490; J7050; J7060; J7608